=== PATIENT | female | born 1965 | race Caucasian/White ===

== ENCOUNTER → 2019-03-09 13:36 | Outpatient (BNVA) | payer MEDICARE, MEDICAID, SELFPAY | PROVIDERS: Family Provider Family Medicine; PCP Family Medicine; Visit Provider Family Medicine | DX: Z12.31 Encounter for screening mammogram for malignant neoplasm of breast (principal); N89.8 Other specified noninflammatory disorders of vagina | CPT/HCPCS: 87070 ==

== ENCOUNTER → 2019-05-19 15:59 | Outpatient (BNVA) | payer MEDICARE, MEDICAID, SELFPAY | PROVIDERS: Family Provider Family Medicine; PCP Family Medicine; Visit Provider Nurse Practitioner | DX: S99.922A Unspecified injury of left foot, initial encounter (principal); S92.355A Nondisplaced fracture of fifth metatarsal bone, left foot, initial encounter for closed fracture; X58.XXXA Exposure to other specified factors, initial encounter | CPT/HCPCS: 73630 ==

== ENCOUNTER 2019-05-24 11:41 | Outpatient (CLI) | payer MEDICARE, MEDICAID, SELFPAY ==
--- NOTE | 2019-05-24 11:30 | MM_ITS ---
WS: [id number] BILATERAL DIGITAL SCREENING MAMMOGRAPHY WITH CAD CLINICAL INFORMATION: breast cancer screening HISTORY: Screening mammogram. No current complaints. COMPARISON: January 23, 2018 TECHNIQUE: Bilateral CC and MLO views. FINDINGS: Scattered fibroglandular densities bilaterally. No suspicious focal mass, asymmetry, calcifications, or architectural distortion. No evidence of malignancy. MM/[place] [id number] IMPRESSION: BI-RADS: 2-Benign FOLLOW UP: 1 Year Follow-up Recommend return to annual screening mammography.
== END 2019-05-24 11:42 | disposition home or self-care (01) ==
LOC: RADSHAW 11:44
PROVIDERS: Family Provider Family Medicine; PCP Family Medicine; Visit Provider Family Medicine
DX: Z12.31 Encounter for screening mammogram for malignant neoplasm of breast (principal)
CPT/HCPCS: 77067

== ENCOUNTER 2019-05-24 12:33 | Outpatient (CLI) | payer MEDICARE, MEDICAID, SELFPAY ==
--- NOTE | 2019-05-24 12:42 | XR_ITS ---
WS: [id number] Left foot, 3 views, 05/24/2019 Clinical Data: fracture Comparison: Left foot, 05/19/2019 Findings: Fracture of the base of left fifth metatarsal remains the same. No other fractures are noted. The soft tissues show no changes. XR/XR foot LT min 3V* [id number] Impression: No change in fracture of base of left fifth metatarsal.
== END 2019-05-24 12:34 | disposition home or self-care (01) ==
LOC: RADWPI 12:40
PROVIDERS: Family Provider Family Medicine; PCP Family Medicine; Visit Provider Podiatrist Foot & Ankle Surgery
DX: S92.352A Displaced fracture of fifth metatarsal bone, left foot, initial encounter for closed fracture (principal); X58.XXXA Exposure to other specified factors, initial encounter
CPT/HCPCS: 73630

== ENCOUNTER → 2019-06-06 12:27 | Outpatient (BNVA) | payer MEDICARE, MEDICAID, SELFPAY | PROVIDERS: Family Provider Family Medicine; PCP Family Medicine; Visit Provider Podiatrist Foot & Ankle Surgery | DX: S92.352A Displaced fracture of fifth metatarsal bone, left foot, initial encounter for closed fracture (principal); T14.8XXA Other injury of unspecified body region, initial encounter | CPT/HCPCS: 73630 ==

== ENCOUNTER → 2019-07-03 09:54 | Outpatient (BNVA) | payer MEDICARE, MEDICAID, SELFPAY | PROVIDERS: Family Provider Family Medicine; PCP Family Medicine; Visit Provider Podiatrist Foot & Ankle Surgery | DX: S92.902A Unspecified fracture of left foot, initial encounter for closed fracture (principal); M21.42 Flat foot [pes planus] (acquired), left foot; S92.352A Displaced fracture of fifth metatarsal bone, left foot, initial encounter for closed fracture; X58.XXXA Exposure to other specified factors, initial encounter | CPT/HCPCS: 73630 ==

== ENCOUNTER 2019-07-03 12:48 | Outpatient (CLI) | payer MEDICARE, MEDICAID, SELFPAY | END 2019-07-03 12:49 | disposition home or self-care (01) | LOC: SPT 12:49 | PROVIDERS: Family Provider Family Medicine; PCP Family Medicine; Visit Provider Podiatrist Foot & Ankle Surgery | DX: Z46.89 Encounter for fitting and adjustment of other specified devices (principal); S62.308D Unspecified fracture of other metacarpal bone, subsequent encounter for fracture with routine healing; X58.XXXD Exposure to other specified factors, subsequent encounter; S92.902A Unspecified fracture of left foot, initial encounter for closed fracture; M21.42 Flat foot [pes planus] (acquired), left foot; S92.352A Displaced fracture of fifth metatarsal bone, left foot, initial encounter for closed fracture; X58.XXXA Exposure to other specified factors, initial encounter | CPT/HCPCS: 73630; L3031 ==

== ENCOUNTER → 2019-07-25 11:58 | Outpatient (BNVA) | payer MEDICARE, MEDICAID, SELFPAY | PROVIDERS: Family Provider Family Medicine; PCP Family Medicine; Visit Provider Podiatrist Foot & Ankle Surgery | DX: S92.353A Displaced fracture of fifth metatarsal bone, unspecified foot, initial encounter for closed fracture (principal); X58.XXXA Exposure to other specified factors, initial encounter | CPT/HCPCS: 73630 ==

== ENCOUNTER 2019-08-08 20:00 | Outpatient (CLI) | payer MEDICARE, MEDICAID, SELFPAY | END 2019-08-08 20:01 | disposition home or self-care (01) | LOC: SLEEP 08-09 09:17 | PROVIDERS: Family Provider Family Medicine; PCP Family Medicine; Visit Provider Anesthesiology Pain Medicine | DX: G47.33 Obstructive sleep apnea (adult) (pediatric) (principal) | CPT/HCPCS: 95811 ==

== ENCOUNTER → 2019-09-05 14:27 | Outpatient (BNVA) | payer MEDICARE, MEDICAID, SELFPAY | PROVIDERS: Family Provider Family Medicine; PCP Family Medicine; Visit Provider Family Medicine | DX: K21.9 Gastro-esophageal reflux disease without esophagitis (principal); I10 Essential (primary) hypertension; E11.9 Type 2 diabetes mellitus without complications; E03.9 Hypothyroidism, unspecified | CPT/HCPCS: 80053; 80061; 82044; 83036; 84443; 85025 ==

== ENCOUNTER → 2019-10-03 16:02 | Outpatient (BNVA) | payer MEDICARE, MEDICAID, SELFPAY | PROVIDERS: Family Provider Family Medicine; PCP Family Medicine; Visit Provider Family Medicine | DX: N89.8 Other specified noninflammatory disorders of vagina (principal) | CPT/HCPCS: 84450; 87070 ==

== ENCOUNTER 2019-10-24 08:18 | Day surgery (SDC) | payer MEDICARE, MEDICAID, SELFPAY ==
[2019-10-19 13:19] VITALS: BMI 42.9
[2019-10-24 08:24] VITALS: BP 138/84; PULSE 85; RESP 18; TEMP 36.2; O2SAT 93
[2019-10-24 08:42] LABS: Glucose Point of Care 121 mg/dL (70-110)
--- NOTE | 2019-10-24 08:50 | ANES.PREANE2 ---
Pre-Anesthetic Assessment Pre-Anesthetic Assessment: Height/Weight: Height 1.63 m Weight 113.398 kg Temp Pulse Resp BP Pulse Ox 97.2 F L 85 18 138/84 93 10/24/19 08:24 10/24/19 08:24 10/24/19 08:24 10/24/19 08:24 10/24/19 08:24 Preop Diagnosis: Acid reflux Proposed Procedure: Operation Date: 10/24/19 09:00 Proposed Procedures p EGD 41414 K21.9(Not Applicable) - Anthony Gar MD Was Beta Mook taken within 24 hours: N/A Last intake: Intake Last Liquid Date 10/23/19 Last Liquid Time 20:00 Last Solid Date 10/23/19 Last Solid Time 23:30 Last Intake: 23:00 Social: Social History: No alcohol and No tobacco Exam: Pre-Anes Outpt Exam: alert, oriented x 3, clear to auscultation bilaterally and regular rate & rhythm Airway: Submandibular: WNL Cervical ROM: WNL MP: 3 Dentition: Full Pulmonary: Pulmonary: None reported CV/HEM: CV/HEM: HTN : : None reported Hepatic: Hepatic: None reported GI: GI: GERD Metabolic: Metabolic: DM and Thyroid Comments: 120's avg Musc/skel: Musc/skel: Fibromyalgia and Lower Back Pain Neuropsych: Neuropsych: Anxiety Anesthetic Plan: ASA status: 3 Anesthesia: Anesthesia Evaluation and MAC PFSH Anesthesia PFSH: Medical History (Updated 10/03/19 @ 15:50 by Lida Santamaria DO) Carpal tunnel syndrome of left wrist Chronic GERD Controlled diabetes mellitus DDD (degenerative disc disease), cervical Depression Essential (primary) hypertension DENILSON (generalized anxiety disorder) Surgical History (Updated 10/03/19 @ 15:50 by Lida Santamaria DO) H/O section H/O craniotomy H/O total knee replacement RIGHT History of ankle surgery History of cholecystectomy History of colonoscopy (~2018) Family History Father Stroke Mother Cancer Social History Smoking and tobacco status: never smoked Alcohol intake: current Alcohol intake frequency: 0-2 Drinks per Day Data Anesthesia Other Labs: Laboratory Results - last 48 hr 10/24/19 08:38 POC Glucose 121 Cardiac Studies: No Data to Display
--- NOTE | 2019-10-24 08:54 | W.PM.OPSUD ---
Surgery/Procedure H&P Update DATE OF PROCEDURE: October 24, 2019 DATE H&P PERFORMED: 09/26/19 H&P UPDATE INFORMATION: I have reviewed H&P completed within last 30 days, I have examined patient prior to procedure and No changes to prior documentation PREOP DIAGNOSIS: Acid reflux PRIMARY INDICATION FOR PROCEDURE: The same PLANNED PROCEDURE: Operation Date: 10/24/19 09:00 Proposed Procedures p EGD 72978 K21.9(Not Applicable) - Anthony Gar MD
[2019-10-24 09:13] VITALS: BP 88/61; PULSE 84; RESP 18; TEMP 36.9; O2SAT 94
[2019-10-24 09:35] VITALS: BP 98/69; PULSE 77; RESP 18; O2SAT 96
--- NOTE | 2019-10-24 09:35 | ANE.PACU2 ---
Inpatient post-anesthesia follow up: Airway intact: Yes Vital signs: Temperature 98.4 F Pulse Rate 77 Respiratory Rate 18 Blood Pressure 98/69 Pulse Oximetry 96 Oxygen Delivery Me thod Room Air Oxygen Flow Rate 3 Fraction of Inspir ed Oxygen Hydration adequate: Yes Nausea and vomiting: No Pain level: 2 Mental status: Baseline
[2019-10-24] MEDS: sodium chloride 0.9% 1,000 ML 30 ML IV (09:49)
[2019-10-25 09:25] LABS: H. Pylori / CLO Test Negative
== END 2019-10-24 09:30 | disposition home or self-care (01) ==
PROVIDERS: PCP Family Medicine; Visit Provider Surgery
PROC: 0DJ08ZZ Inspection of Upper Intestinal Tract, Via Natural or Artificial Opening Endoscopic (ICD-10-PCS; CPT 43235; principal; 2019-10-24 09:00)
DX: K21.9 Gastro-esophageal reflux disease without esophagitis (principal); K29.70 Gastritis, unspecified, without bleeding; E66.01 Morbid (severe) obesity due to excess calories; E11.9 Type 2 diabetes mellitus without complications; Z79.84 Long term (current) use of oral hypoglycemic drugs; I10 Essential (primary) hypertension; Z68.42 Body mass index [BMI] 45.0-49.9, adult
CPT/HCPCS: 12345; 36416; 43239; 82962; 87077; J2704; J7030

== ENCOUNTER → 2020-01-06 14:09 | Outpatient (BNVA) | payer MEDICARE, MEDICAID, SELFPAY | PROVIDERS: PCP Family Medicine; Visit Provider Nurse Practitioner Family | DX: Z20.828 Contact with and (suspected) exposure to other viral communicable diseases (principal); J32.9 Chronic sinusitis, unspecified | CPT/HCPCS: 87400; 87635 ==

== ENCOUNTER 2020-01-08 17:45 | Inpatient (IN) | payer MEDICARE, MEDICAID, SELFPAY ==
[2020-01-08] VITALS (12 sets, daily range): BP systolic 82–147; BP diastolic 55–98; PULSE 70–107; RESP 12–38; TEMP 37; O2SAT 40–99; BMI 42.9
--- NOTE | 2020-01-08 18:15 | XR_ITS ---
WS: [id number] XR chest 1V portable [id number] REASON FOR EXAM: cp FINDINGS: Mild cardiomegaly. Mild tortuosity of the thoracic aorta. No other mediastinal abnormality. Ill-defined interstitial and more consolidative appearing opacities in the lower lung briggs medially . Minimal blunting of the costophrenic angles. XR/XR chest 1V portable [id number] IMPRESSION: Opacifications in the lower lung briggs likely represent a combination of atele ctasis and infiltrate of unknown chronicity. Acute or subacute pneumonitis enrike ot be excluded. Small amount of bilateral pleural fluid versus pleural scarring .
--- NOTE | 2020-01-08 18:16 | ECG_ITS ---
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 Measurements Intervals [place] Rate: 98 P: 26 IN: 147 QRS: 48 QRSD: 102 T: 38 QT: 371 QTc: 475 Interpretive Statements SINUS RHYTHM No previous ECG available for comparison Electronically Signed On 01-09-2020 19:24:07 FISH PACKER by Elza Swartz M.D. [id number]
--- NOTE | 2020-01-08 18:28 | ED_ITS ---
HPI - COVID General: Chief Complaint: COVID symptoms Stated Complaint: cp/sob/abd pain Time Seen by Provider: 01/08/20 17:58 Source: patient Mode of arrival: ambulatory Limitations: no limitations Triage information: Has fever, cough or shortness of breath . No known COVID + exposure last 14 days History of Present Illness: HPI Narrative: 54-year-old female who states she has not been feeling well over the last 2 to 3 days. States she had shortness of breath along with chest pain and some abdominal pain. Patient is quite dyspneic here and hypoxic. She denies any fever. She did have a Covid test 2 days ago that was negative. She has had some chest pain as well. Pain is sharp and rates it a 3 out of 10. COVID 19 common symptoms: positive dyspnea; negative fever(s), chills, body aches, headache(s) or throat pain COVID 19 other sytmptoms: positive chest pain COVID Results: SARS-CoV-2 RNA (RT-PCR) Not detected (NOT DETECTED) 01/06/20 14:15 03/26 Review of Systems Const: Denies: fever(s), chills, body aches or change in appetite Eyes: Denies: blurry vision or eye discomfort ENMT: Denies: throat pain or dental pain Card: Reports: chest pain Resp: Reports: dyspnea GI: Reports: abdominal pain : Denies: dysuria Musc: Denies: neck pain or back pain Skin/Breast: Denies: rash Neuro: Denies: headache(s) Psych: Denies: depression Farshad/Lymph: Denies: easy bruising All/Imm: Denies: urticaria PFSH ED PFSH: Medical History Carpal tunnel syndrome of left wrist Chronic GERD Controlled diabetes mellitus DDD (degenerative disc disease), cervical Depression Essential (primary) hypertension DENILSON (generalized anxiety disorder) Surgical History H/O section H/O craniotomy H/O total knee replacement RIGHT History of ankle surgery History of cholecystectomy History of colonoscopy (~2018) Family History Father Stroke Mother Cancer Social History (Updated 01/08/20 @ 18:18 by Baldemar Jimenez RN) Smoking and tobacco status: never smoked Alcohol intake: never Substance/Drug Use: never Physical Exam Const: COMMON NORMALS: patient oriented x3 and healthy appearing GENERAL APPEARANCE: in distress and ill appearing HENMT: COMMON NORMALS: normocephalic and atraumatic HEAD & SCALP: normocephalic and atraumatic Eye: COMMON NORMALS: Equal, round and reactive pupils present and EOMs intact bilaterally PUPIL: Yes Equal, round and reactive pupils present Neck/C-Spine: COMMON NORMALS: full ROM and supple Chest: COMMONS NORMALS: normal inspection of the chest and normal palpation of entire chest wall Resp: COMMON NORMALS: No retractions, No use of accessory muscles and clear to auscultation bilaterally EFFORT & INSPECTION: Yes respiratory distress AUSCULTATION: clear to auscultation bilaterally Cardio: COMMON NORMALS: regular rate, regular rhythm and No murmurs present (Cardio) RATE: regular rate RHYTHM: regular rhythm GI: COMMON NORMALS: Normal to inspection, nondistended, normoactive bowel sounds present, Soft to palpation, non-tender and no masses PALPATION: Yes Soft to palpation Extremity: COMMON NORMALS: normal to inspection and full ROM Neuro: COMMON NORMALS: patient oriented x3, moves all extremities and no focal motor deficits Psych: COMMON NORMALS: mental status grossly normal, Normal thought process present and cooperative THOUGHT PROCESS: Normal thought process present Skin: COMMON NORMALS: no rashes or lesions noted and no wounds GENERAL SKIN EXAM: no rashes or lesions noted Course Reevaluation(s): Reevaluation #1: Patient had increasing unresponsiveness here. Even on BiPAP. Is concerned she may have taken too many of her pain medicines. Patient given 0.4 Narcan she immediately woke up was answering all my questions was able to take her off BiPAP and placed on a nasal cannula at this time. We will recheck her ABG at 10 minutes. Time: 20:45 Vital Signs: Vital signs: Vital Signs Temperature 98.6 F 01/08/20 18:11 Pulse Rate 85 01/08/20 21:30 Respiratory Rate 19 H 01/08/20 21:30 Blood Pressure 102/86 01/08/20 21:30 Pulse Oximetry 96 01/08/20 21:30 MDM - COVID MDM Narrative Medical decision making narrative: Patient presents here with likely accidental overdose on her fentanyl. Patient here awoken breathing improved greatly after Narcan. Spoke to hospitalist and will admit for observation. Patient's ABG is improving after the Narcan. CT of her chest shows no acute findings. I do not believe she needs a Narcan drip at this time. Lab Data Result diagrams: 01/08/20 18:24 01/08/20 18:24 Labs: Lab Results 01/08/20 01/08/20 01/08/20 Range/Units 18:24 18:24 18:24 WBC 15.4 H (4.0-10.0) 10^3/uL RBC 4.86 (4.1-5.3) 10^6/uL Hgb 13.3 (11.5-15.3) g/dL Hct 44.5 (37.0-47.0) % MCV 91.6 (81-99) fL MCH 27.4 L (28.0-34.0) pg MCHC 29.9 L (30.0-36.0) g/dL RDW 14.6 (12.1-15.1) % Plt Count 433 H (130-400) 10^3/cmm MPV 9.2 (7.4-10.4) fL Neut % (Auto) 79.5 % Lymph % (Auto) 11.9 % [place] % (Auto) 5.6 % Eos % (Auto) 0.4 % Baso % (Auto) 0.3 % Neut # (Auto) 12.19 H (1.8-7.7) 10^3/uL Lymph # (Auto) 1.8 (0.8-4.8) 10^3/uL [place] # (Auto) 0.9 (0.2-0.9) 10^3/uL Eos # (Auto) 0.1 (0.0-0.8) 10^3/uL Baso # (Auto) 0.1 (0.0-0.1) 10^3/uL Nucleated RBC % (auto) 0 % Nucleated RBCs # 0.0 /100WBC PT 13.00 (12.1-14.9) SECONDS INR 0.96 (0.8-1.2) D-Dimer 0.41 (0-0.59) ug/mIFEU Specimen Type Sample Site ABG pH (7.35-7.45) ABG pCO2 (35-45) mmHg ABG pO2 (80.0-100.0) mmHg ABG HCO3 (22-26) mmol/L ABG Base Excess (-2.0-2.0) mmol/L Bernardino Test Hematocrit (37-47) % O2 Delivery Device O2 Liters/Min % FiO2 % Repeat Photocomposing Machine Operator ID Sodium 132 L (136-145) mmol/L Potassium 4.3 (3.5-5.1) mmol/L Chloride 89 L (98-107) mmol/L Carbon Dioxide 31 H (22-29) mmol/L Anion Gap 16.3 (5-19) BUN 12 (6-20) mg/dL Creatinine 0.7 (0.5-0.9) mg/dL GFR Calculation 86.6 L (90-130) mL/min Glucose 210 H (65-115) mg/dL Calculated Osmolality 280 L (285-295) mOsm/kg Lactic Acid (0.5-2.2) mmol/L Calcium 9.0 (8.5-10.5) mg/dL Total Bilirubin 0.2 (0.15-1.2) mg/dL AST 45 H (0-32) U/L ALT 49 H (0-33) U/L Alkaline Phosphatase 127 H (35-105) IU/L Troponin T Baseline (0-10) ng/L Total Protein 7.6 (6.6-8.7) g/dL Albumin 4.3 (3.5-5.2) g/dL Globulin 3.3 (1.3-4.6) g/dL Lipase 12 L (13-60) U/L 01/08/20 01/08/20 01/08/20 Range/Units 18:24 18:24 18:45 WBC (4.0-10.0) 10^3/uL RBC (4.1-5.3) 10^6/uL Hgb (11.5-15.3) g/dL Hct (37.0-47.0) % MCV (81-99) fL MCH (28.0-34.0) pg MCHC (30.0-36.0) g/dL RDW (12.1-15.1) % Plt Count (130-400) 10^3/cmm MPV (7.4-10.4) fL Neut % (Auto) % Lymph % (Auto) % [place] % (Auto) % Eos % (Auto) % Baso % (Auto) % Neut # (Auto) (1.8-7.7) 10^3/uL Lymph # (Auto) (0.8-4.8) 10^3/uL [place] # (Auto) (0.2-0.9) 10^3/uL Eos # (Auto) (0.0-0.8) 10^3/uL Baso # (Auto) (0.0-0.1) 10^3/uL Nucleated RBC % (auto) % Nucleated RBCs # /100WBC PT (12.1-14.9) SECONDS INR (0.8-1.2) D-Dimer (0-0.59) ug/mIFEU Specimen Type Arterial Sample Site Radial, right ABG pH 7.21 L (7.35-7.45) ABG pCO2 88.9 H* (35-45) mmHg ABG pO2 85.0 (80.0-100.0) mmHg ABG HCO3 35.7 H (22-26) mmol/L ABG Base Excess 4.6 H (-2.0-2.0) mmol/L Bernardino Test Pos Hematocrit 42.7 (37-47) % O2 Delivery Device Nrb O2 Liters/Min 15.0 % FiO2 100.0 % Repeat Photocomposing Machine Operator ID Bd Sodium (136-145) mmol/L Potassium (3.5-5.1) mmol/L Chloride (98-107) mmol/L Carbon Dioxide (22-29) mmol/L Anion Gap (5-19) BUN (6-20) mg/dL Creatinine (0.5-0.9) mg/dL GFR Calculation (90-130) mL/min Glucose (65-115) mg/dL Calculated Osmolality (285-295) mOsm/kg Lactic Acid 1.9 (0.5-2.2) mmol/L Calcium (8.5-10.5) mg/dL Total Bilirubin (0.15-1.2) mg/dL AST (0-32) U/L ALT (0-33) U/L Alkaline Phosphatase (35-105) IU/L Troponin T Baseline 15 H (0-10) ng/L Total Protein (6.6-8.7) g/dL Albumin (3.5-5.2) g/dL Globulin (1.3-4.6) g/dL Lipase (13-60) U/L 01/08/20 Range/Units 20:49 WBC (4.0-10.0) 10^3/uL RBC (4.1-5.3) 10^6/uL Hgb (11.5-15.3) g/dL Hct (37.0-47.0) % MCV (81-99) fL MCH (28.0-34.0) pg MCHC (30.0-36.0) g/dL RDW (12.1-15.1) % Plt Count (130-400) 10^3/cmm MPV (7.4-10.4) fL Neut % (Auto) % Lymph % (Auto) % [place] % (Auto) % Eos % (Auto) % Baso % (Auto) % Neut # (Auto) (1.8-7.7) 10^3/uL Lymph # (Auto) (0.8-4.8) 10^3/uL [place] # (Auto) (0.2-0.9) 10^3/uL Eos # (Auto) (0.0-0.8) 10^3/uL Baso # (Auto) (0.0-0.1) 10^3/uL Nucleated RBC % (auto) % Nucleated RBCs # /100WBC PT (12.1-14.9) SECONDS INR (0.8-1.2) D-Dimer (0-0.59) ug/mIFEU Specimen Type Arterial Sample Site Brachial, right ABG pH 7.36 (7.35-7.45) ABG pCO2 55.4 H (35-45) mmHg ABG pO2 79.3 L (80.0-100.0) mmHg ABG HCO3 31.2 H (22-26) mmol/L ABG Base Excess 4.4 H (-2.0-2.0) mmol/L Bernardino Test N/a Hematocrit 41.4 (37-47) % O2 Delivery Device Nc O2 Liters/Min 5.0 % FiO2 % Repeat Photocomposing Machine Operator ID Harkr Sodium (136-145) mmol/L Potassium (3.5-5.1) mmol/L Chloride (98-107) mmol/L Carbon Dioxide (22-29) mmol/L Anion Gap (5-19) BUN (6-20) mg/dL Creatinine (0.5-0.9) mg/dL GFR Calculation (90-130) mL/min Glucose (65-115) mg/dL Calculated Osmolality (285-295) mOsm/kg Lactic Acid (0.5-2.2) mmol/L Calcium (8.5-10.5) mg/dL Total Bilirubin (0.15-1.2) mg/dL AST (0-32) U/L ALT (0-33) U/L Alkaline Phosphatase (35-105) IU/L Troponin T Baseline (0-10) ng/L Total Protein (6.6-8.7) g/dL Albumin (3.5-5.2) g/dL Globulin (1.3-4.6) g/dL Lipase (13-60) U/L COVID Results: SARS-CoV-2 RNA (RT-PCR) Not detected (NOT DETECTED) 01/06/20 14:15 01/06/[address] Chest: Radiologist's impression: [address] [address] [address] Scan Report Signed Patient: Shannan Hummel Unit #: [id number] : 1965 Age/Sex: 54 / F ADM Date: 01/08/20 Loc: ER Room/Bed: Attending Dr: Ordering Provider/Ordering MD: Kapil Sarmiento MD Date of Service: 01/08/20 Procedure(s): CT angio chest w abd pel w con Accession Number(s): [id number] Report Number: [id number] PROCEDURE INFORMATION: Exam: CT Angiography Chest With Contrast Exam date and time: 01/08/2020 7:23 PM Age: 54 years old Clinical indication: Nausea and vomiting; Abdominal pain; Shortness of breath; Chest pain; Prior surgery; Surgery type: , gb; Additional info: Cp TECHNIQUE: Imaging protocol: Computed tomographic angiography of the chest with intravenous contrast. 3D rendering (Not supervised by radiologist): MIP and/or 3D reconstructed images were created by the technologist. Radiation optimization: All CT scans at this facility use at least one of these dose optimization techniques: automated exposure control; mA and/or kV adjustment per patient size (includes targeted exams where dose is matched to clinical indication); or iterative reconstruction. Contrast material: OMNI 350; Contrast volume: 95 ml; Contrast route: INTRAVENOUS (IV); COMPARISON: CR XR chest 1V portable [id number] 01/08/2020 6:31 PM RADIATION DOSE METRICS: Total DLP (mGy-cm): 3621.56 FINDINGS: Pulmonary arteries: Suboptimal bolus contrast timing in the pulmonary arteries. No filling defect identified within the central or lobar branches. The segmental and smaller artery branches are suboptimally opacified with contrast to exclude embolus. Aorta: Unremarkable. No aortic aneurysm. No aortic dissection. Lungs: Dependent atelectasis in the bilateral lower lobes, right middle lobe, and right upper lobe. Pleural space: Unremarkable. No pneumothorax. No pleural effusion. Heart: Unremarkable. No cardiomegaly. No pericardial effusion. Lymph nodes: Subcentimeter mediastinal and hilar lymph nodes are most likely reactive. Bones/joints: Unremarkable. No acute fracture. Soft tissues: Unremarkable. IMPRESSION: 1. No pulmonary emboli visualized. The segmental and smaller artery branches are suboptimally opacified with contrast to definitely exclude embolus. 2. Mild atelectasis. PROCEDURE INFORMATION: Exam: CT Abdomen And Pelvis With Contrast Exam date and time: 01/08/2020 7:23 PM Age: 54 years old Clinical indication: Nausea and vomiting; Abdominal pain; Shortness of breath; Chest pain; Prior surgery; Surgery type: , gb; Additional info: Cp TECHNIQUE: Imaging protocol: Computed tomography of the abdomen and pelvis with intravenous contrast. Radiation optimization: All CT scans at this facility use at least one of these dose optimization techniques: automated exposure control; mA and/or kV adjustment per patient size (includes targeted exams where dose is matched to clinical indication); or iterative reconstruction. Contrast material: OMNI 350; Contrast volume: 95 ml; Contrast route: INTRAVENOUS (IV); COMPARISON: CR XR chest 1V portable [id number] 01/08/2020 6:31 PM RADIATION DOSE METRICS: Total DLP (mGy-cm): 3621.56 FINDINGS: Mediastinal space: Small hiatal hernia. Liver: Normal. No mass. Gallbladder and bile ducts: Cholecystectomy. Mild prominence of the intrahepatic and extrahepatic bile ducts is most likely chronic reservoir effect. Pancreas: Normal. No ductal dilation. Spleen: Normal. No splenomegaly. Adrenal glands: Normal. No mass. Kidneys and ureters: Normal. No hydronephrosis. Stomach and bowel: Mobile cecum which is located within the central abdomen. The appendix is visible and is normal. Moderate stool in the transverse colon with mild scattered stool and gas throughout the remainder. The small bowel is unremarkable. Appendix: See Stomach and bowel finding. Intraperitoneal space: Unremarkable. No free air. No significant fluid collection. Vasculature: Unremarkable. No abdominal aortic aneurysm. Lymph nodes: Unremarkable. No enlarged lymph nodes. Urinary bladder: Unremarkable as visualized. Reproductive: Unremarkable as visualized. Bones/joints: Unremarkable. No acute fracture. Soft tissues: Mild subcutaneous fat edema in the posterior lumbar region. CT/CT angio chest w abd pel w con IMPRESSION: 1. No acute abnormality identified in the abdomen or pelvis. EKG Data EKG 1: Attestation: I personally reviewed and interpreted this EKG as follows: EKG interpretation date: 01/08/20 EKG interpretation time: 18:16 Interpretation: nsr hr [address] or t wave abnormalities qrs 102 qtc 426 Discharge Plan Discharge Prescriptions: No Action pseudoephedrine HCl 60 mg tablet 30 mg PO Q4H RF: 0 gabapentin 400 mg capsule 400 mg PO TID RF: 0 fentanyl 75 mcg/hr patch 72 hour 1 patch TRANSDERMA Q72H RF: 0 oxycodone 10 mg tablet 10 mg PO Q6H PRN (Reason: Pain) RF: 0 ondansetron 4 mg tablet,disintegrating 4 mg PO Q6H Qty: 90 RF: 0 clonazepam 0.5 mg tablet 0.5 mg PO DAILY Qty: 40 RF: 4 metformin 500 mg tablet 500 mg PO BID Qty: 180 RF: 1 omeprazole 20 mg capsule,delayed release(DR/EC) 20 mg PO DAILY Qty: 90 RF: 0 paroxetine HCl [Paxil] 40 mg tablet 40 mg PO DAILY Qty: 90 RF: 0 hydrochlorothiazide 25 mg tablet 25 mg PO DAILY Qty: 90 RF: 1 albuterol sulfate [Ventolin HFA] 90 mcg/actuation HFA aerosol inhaler 2 puff INHALATION Q6H PRN (Reason: shortness of breath or wheezing) Qty: 8.5 RF: 0 azithromycin 250 mg tablet See Rx Instructions PO .COMPLEX Qty: 6 RF: 0 pantoprazole 40 mg tablet,delayed release (DR/EC) 40 mg PO DAILY Qty: 90 RF: 0 pravastatin 40 mg tablet 40 mg PO ONCE Qty: 90 RF: 0 ropinirole 1 mg tablet 1 mg PO TID Qty: 270 RF: 0 memantine 10 mg tablet 10 mg PO BID Qty: 180 RF: 1 levothyroxine 75 mcg capsule 75 mcg PO DAILY Qty: 90 RF: 0 Rexulti 0.5 mg tablet 0.5 mg PO DAILY Qty: 90 RF: 0 lamotrigine 200 mg tablet 200 mg PO DAILY Qty: 90 RF: 0 Diflucan 150 mg tablet 150 mg PO DAILY RF: 0 amlodipine 5 mg tablet 5 mg PO DAILY RF: 0 trazodone 100 mg tablet 100 mg PO DAILY RF: 0 losartan 100 mg tablet 100 mg PO DAILY RF: 0 cyclobenzaprine 10 mg tablet 10 mg PO TID RF: 0 oxycodone-acetaminophen 10-325 mg tablet 1 tab PO QID PRN (Reason: Pain) RF: 0 Coding Level of Care Code ED Medical Orderly for Chg Fwd Exam Comprehensive
--- NOTE | 2020-01-08 18:40 | PC.NURSE ---
O2 APPLIED AT 15L/NRB, O2 SATS INCREASED TO 93%
--- NOTE | 2020-01-08 18:48 | CTR_ITS ---
PROCEDURE INFORMATION: Exam: CT Angiography Chest With Contrast Exam date and time: 01/08/2020 7:23 PM Age: 54 years old Clinical indication: Nausea and vomiting; Abdominal pain; Shortness of breath; Chest pain; Prior surgery; Surgery type: , gb; Additional info: Cp TECHNIQUE: Imaging protocol: Computed tomographic angiography of the chest with intravenous contrast. 3D rendering (Not supervised by radiologist): MIP and/or 3D reconstructed images were created by the technologist. Radiation optimization: All CT scans at this facility use at least one of these dose optimization techniques: automated exposure control; mA and/or kV adjustment per patient size (includes targeted exams where dose is matched to clinical indication); or iterative reconstruction. Contrast material: OMNI 350; Contrast volume: 95 ml; Contrast route: INTRAVENOUS (IV); COMPARISON: CR XR chest 1V portable [id number] 01/08/2020 6:31 PM RADIATION DOSE METRICS: Total DLP (mGy-cm): 3621.56 FINDINGS: Pulmonary arteries: Suboptimal bolus contrast timing in the pulmonary arteries. No filling defect identified within the central or lobar branches. The segmental and smaller artery branches are suboptimally opacified with contrast to exclude embolus. Aorta: Unremarkable. No aortic aneurysm. No aortic dissection. Lungs: Dependent atelectasis in the bilateral lower lobes, right middle lobe, and right upper lobe. Pleural space: Unremarkable. No pneumothorax. No pleural effusion. Heart: Unremarkable. No cardiomegaly. No pericardial effusion. Lymph nodes: Subcentimeter mediastinal and hilar lymph nodes are most likely reactive. Bones/joints: Unremarkable. No acute fracture. Soft tissues: Unremarkable. IMPRESSION: 1. No pulmonary emboli visualized. The segmental and smaller artery branches are suboptimally opacified with contrast to definitely exclude embolus. 2. Mild atelectasis. PROCEDURE INFORMATION: Exam: CT Abdomen And Pelvis With Contrast Exam date and time: 01/08/2020 7:23 PM Age: 54 years old Clinical indication: Nausea and vomiting; Abdominal pain; Shortness of breath; Chest pain; Prior surgery; Surgery type: , gb; Additional info: Cp TECHNIQUE: Imaging protocol: Computed tomography of the abdomen and pelvis with intravenous contrast. Radiation optimization: All CT scans at this facility use at least one of these dose optimization techniques: automated exposure control; mA and/or kV adjustment per patient size (includes targeted exams where dose is matched to clinical indication); or iterative reconstruction. Contrast material: OMNI 350; Contrast volume: 95 ml; Contrast route: INTRAVENOUS (IV); COMPARISON: CR XR chest 1V portable [id number] 01/08/2020 6:31 PM RADIATION DOSE METRICS: Total DLP (mGy-cm): 3621.56 FINDINGS: Mediastinal space: Small hiatal hernia. Liver: Normal. No mass. Gallbladder and bile ducts: Cholecystectomy. Mild prominence of the intrahepatic and extrahepatic bile ducts is most likely chronic reservoir effect. Pancreas: Normal. No ductal dilation. Spleen: Normal. No splenomegaly. Adrenal glands: Normal. No mass. Kidneys and ureters: Normal. No hydronephrosis. Stomach and bowel: Mobile cecum which is located within the central abdomen. The appendix is visible and is normal. Moderate stool in the transverse colon with mild scattered stool and gas throughout the remainder. The small bowel is unremarkable. Appendix: See Stomach and bowel finding. Intraperitoneal space: Unremarkable. No free air. No significant fluid collection. Vasculature: Unremarkable. No abdominal aortic aneurysm. Lymph nodes: Unremarkable. No enlarged lymph nodes. Urinary bladder: Unremarkable as visualized. Reproductive: Unremarkable as visualized. Bones/joints: Unremarkable. No acute fracture. Soft tissues: Mild subcutaneous fat edema in the posterior lumbar region. CT/CT angio chest w abd pel w con IMPRESSION: 1. No acute abnormality identified in the abdomen or pelvis. Radiation Dose CTDIVOL = (mGy): DLP = 3621.56~3621.56 (mGy-cm)
[2020-01-08 18:53] LABS: Basophils # 0.1 10^3/uL (0.0-0.1); Basophils % 0.3 %; Eosinophils # 0.1 10^3/uL (0.0-0.8); Eosinophils % 0.4 %; Hematocrit 44.5 % (37.0-47.0); Hemoglobin 13.3 g/dL (11.5-15.3); Lymphocytes # 1.8 10^3/uL (0.8-4.8); Lymphocytes % 11.9 %; Mean Corpuscular HGB Conc 29.9 g/dL (30.0-36.0); Mean Corpuscular Hemoglobin 27.4 pg (28.0-34.0); Mean Corpuscular Volume 91.6 fL (81-99); Mean Platelet Volume 9.2 fL (7.4-10.4); Monocytes # 0.9 10^3/uL (0.2-0.9); Monocytes % 5.6 %; Neutrophils # 12.19 10^3/uL (1.8-7.7); Neutrophils % 79.5 %; Nucleated Red Blood Cells % 0 %; Platelet Count 433 10^3/cmm (130-400); Red Blood Count 4.86 10^6/uL (4.1-5.3); Red Cell Distribution Width 14.6 % (12.1-15.1); White Blood Count 15.4 10^3/uL (4.0-10.0)
[2020-01-08 18:55] LABS: INR 0.96 (0.8-1.2)
[2020-01-08 18:58] LABS: D Dimer 0.41 ug/mIFEU (0-0.59)
[2020-01-08 18:58] LABS: ABG PCO2 88.9 mmHg (35-45); ABG PH Result 7.21 (7.35-7.45); Arterial Blood Gas Hematocrit 42.7 % (37-47); Base Excess ABG 4.6 mmol/L (-2.0-2.0); Blood Gas Allen Test Pos; Blood Gas Operator Identificat BD; Blood Gas Sample Site Radial, right; Blood Gas Sample Type Arterial; HCO3 ABG 35.7 mmol/L (22-26); Oxygen Device NRB
[2020-01-08 18:59] LABS: Alanine Aminotransferase 49 U/L (0-33); Albumin Level 4.3 g/dL (3.5-5.2); Alkaline Phosphatase 127 IU/L (35-105); Aspartate Amino Transferase 45 U/L (0-32); Blood Urea Nitrogen 12 mg/dL (6-20); Carbon Dioxide 31 mmol/L (22-29); Chloride 89 mmol/L (98-107); Globulin 3.3 g/dL (1.3-4.6); Glomerular Filtration Rate 86.6 mL/min (90-130); Glucose 210 mg/dL (65-115); Lipase 12 U/L (13-60); Osmolality Calculated 280 mOsm/kg (285-295); Sodium 132 mmol/L (136-145); Total Bilirubin 0.2 mg/dL (0.15-1.2); Total Protein 7.6 g/dL (6.6-8.7)
[2020-01-08 19:02] LABS: Anion Gap 16.3 (5-19)
[2020-01-08 19:03] LABS: Potassium 4.3 mmol/L (3.5-5.1); Troponin(5th) Baseline 15 ng/L (0-10)
[2020-01-08] MEDS: sodium chloride 0.9% 1,000 ML 999 ML IV ×2 (19:15→21:42)
[2020-01-08] MEDS: iohexol 350 mg/mL 100 mL Btl IV (19:44)
[2020-01-08 19:51] LABS: Lactic Sepsis W/Reflex 1.9 mmol/L (0.5-2.2)
--- NOTE | 2020-01-08 20:16 | ECG_ITS ---
[facility] Test Date: 2020-01-08 Pat Name: Shannan Hummel Department: Room: Gender: Female Messaging Architect: : 1965 Requested By: Kapil Sarmiento Order Number: [id number] Ulises MD: Xavier Hutton M.D. Measurements Intervals [place] Rate: 96 P: 150 [place]: 161 QRS: 49 QRSD: 89 T: 72 QT: 384 QTc: 486 Interpretive Statements SINUS RHYTHM ST DEPRESSION, CONSIDER SUBENDOCARDIAL INJURY [0.1+ mV ST DEPRESSION] No previous ECG available for comparison Electronically Signed On 01-08-2020 20:24:54 POLITICAL ORGANIZER by Xavier Hutton M.D. [email or web address].[employer]/store/[id number]
[2020-01-08] MEDS: naloxone 0.4 mg/ml SDV IVP ×2 (20:38→22:02)
[2020-01-08 21:00] LABS: ABG PCO2 55.4 mmHg (35-45); ABG PH Result 7.36 (7.35-7.45); Arterial Blood Gas Hematocrit 41.4 % (37-47); Base Excess ABG 4.4 mmol/L (-2.0-2.0); Blood Gas Sample Type Arterial; HCO3 ABG 31.2 mmol/L (22-26); PO2 ABG 79.3 mmHg (80.0-100.0)
[2020-01-08 21:01] LABS: Blood Gas Operator Identificat HARKR; Blood Gas Sample Site Brachial, right; Oxygen Device NC
--- NOTE | 2020-01-08 21:17 | PC.NURSE ---
fentanyl patch removed from L breast
[2020-01-08] MEDS: naloxone 2 MG in sodium chloride 0.9% (100 ml) 100 ML 20.4 MG IV (22:28)
--- NOTE | 2020-01-08 22:55 | PC.NURSE ---
report recd from DELORES Estrada
--- NOTE | 2020-01-08 23:19 | PM.HP ---
Providers/Chief Complaint Primary Care Provider: Lida Santamaria DO Chief Complaint: n/v in pain History of Present Illness Shannan Hummel is a 54 year old female with PMH of HTN,DM, AMBER,GERD,chronic pain syndrome, came in after accidental fentanyl overdose upon arrival in the ER she received 2 doses of narcan to which she responded transiently and ultimately ended up being placed on narcan drip. CTA chest was done : P.E was ruled out. ABG was also done in ER: Ph: 7.21 ,pco2: 88 po2: 85, She was intilally kept on Bipap which she failed to tolerate,Repeat ABG done later Ph:7.36, Pco2:55 Po2: 79 . EKG:SINUS RHYTHM Review of Systems General: Reports: 10 or more systems reviewed and unremarkable except in HPI and below Const: Denies: fever(s), chills, body aches, change in appetite or diaphoresis Card: Denies: palpitations, edema, swelling of feet/ankles, dyspnea on exertion, orthopnea or leg pain with exertion Resp: Denies: dyspnea, productive cough, wheezing or pain on inspiration GI: Denies: abdominal pain, nausea, vomiting, diarrhea or constipation : Denies: flank pain Musc: Denies: back pain, extremity pain or extremity swelling Neuro: Denies: headache(s), difficulty walking or confusion Medications/Allergies Home Medications Medication Instructions Recorded Confirmed Last Taken Type fentanyl 75 mcg/hr transdermal 1 patch TRANSDERMA Q72H 03/09/19 01/08/20 10/21/19 History patch gabapentin 400 mg capsule 400 mg PO TID 03/09/19 01/08/20 2 Days Ago History ~10/22/19 oxycodone 10 mg tablet 10 mg PO Q6H PRN 03/09/19 01/08/20 2 Days Ago History ~10/22/19 pseudoephedrine HCl 60 mg tablet 30 mg PO Q4H tab 03/09/19 01/08/20 Unknown History ondansetron 4 mg disintegrating 4 mg PO Q6H #90 tab 05/07/19 01/08/20 Unknown Rx tablet pantoprazole 40 mg tablet,delayed 40 mg PO DAILY #90 tab 07/10/19 01/08/20 1 Day Ago Rx release ~10/23/19 pravastatin 40 mg tablet 40 mg PO ONCE #90 tab 07/10/19 01/08/20 10/21/19 Rx ropinirole 1 mg tablet 1 mg PO TID #270 tab 07/10/19 01/08/20 10/21/19 Rx memantine 10 mg tablet 10 mg PO BID #180 tab 08/16/19 01/08/20 10/21/19 Rx metformin 500 mg tablet 500 mg PO BID #180 tab 09/05/19 01/08/20 10/21/19 Rx omeprazole 20 mg capsule,delayed 20 mg PO DAILY #90 cap 09/05/19 01/08/20 1 Day Ago Rx release ~10/23/19 paroxetine HCl 40 mg tablet 40 mg PO DAILY #90 tab 09/05/19 01/08/20 10/21/19 Rx clonazepam 0.5 mg tablet 0.5 mg PO DAILY #40 tab 10/03/19 01/08/20 3 Days Ago Rx ~10/21/19 hydrochlorothiazide 25 mg tablet 25 mg PO DAILY #90 tab 10/03/19 01/08/20 10/21/19 Rx levothyroxine 75 mcg capsule 75 mcg PO DAILY #90 cap 12/11/19 01/08/20 Unknown Rx brexpiprazole 0.5 mg tablet 0.5 mg PO DAILY #90 tab 12/18/19 01/08/20 Unknown Rx lamotrigine 200 mg tablet 200 mg PO DAILY #90 tab 12/26/19 01/08/20 Unknown Rx albuterol sulfate 90 mcg/actuation 2 puff INHALATION Q6H PRN #8.5 gm 01/06/20 01/08/20 Unknown Rx aerosol inhaler azithromycin 250 mg tablet See Rx Instructions PO .COMPLEX #6 01/06/20 01/08/20 Unknown Rx tab Diflucan 150 mg PO DAILY 01/08/20 01/08/20 Unknown History amlodipine 5 mg PO DAILY 01/08/20 01/08/20 Unknown History cyclobenzaprine 10 mg PO TID 01/08/20 01/08/20 Unknown History losartan 100 mg PO DAILY 01/08/20 01/08/20 Unknown History oxycodone-acetaminophen 1 tab PO QID PRN 01/08/20 01/08/20 Unknown History trazodone 100 mg PO DAILY 01/08/20 01/08/20 Unknown History Allergies Allergy/AdvReac Type Severity Reaction Status Date / Time No Known Allergies Allergy Verified 01/06/20 13:36 PFSH Acute PFSH: Medical History Carpal tunnel syndrome of left wrist Chronic GERD Controlled diabetes mellitus DDD (degenerative disc disease), cervical Depression Essential (primary) hypertension DENILSON (generalized anxiety disorder) Surgical History H/O section H/O craniotomy H/O total knee replacement RIGHT History of ankle surgery History of cholecystectomy History of colonoscopy (~2018) Family History Father Stroke Mother Cancer Social History Smoking and tobacco status: never smoked Alcohol intake: never Substance/Drug Use: never Vitals/I&O/Wt Last Vital Signs Temp 98.6 F 01/08/20 18:11 Pulse 97 01/08/20 22:45 Resp 19 H 01/08/20 22:45 BP 102/86 01/08/20 21:30 Pulse Ox 88 L 01/08/20 22:45 01/08/20 01/08/20 01/09/20 14:59 22:59 06:59 Intake Total 1000 / 1000 Balance 1000 / 1000 Weight last 48 hrs Weight 113.398 kg Physical Exam Const: COMMON NORMALS: patient oriented x3 HENMT: COMMON NORMALS: normocephalic, atraumatic, hearing grossly normal bilaterally and external ears normal HEAD & SCALP: normocephalic and atraumatic EXTERNAL EAR: Yes external ears normal Eye: COMMON NORMALS: no scleral icterus GENERAL EYE: appearance normal, both eyes and all related structures Chest: COMMONS NORMALS: normal inspection of the chest and normal palpation of entire chest wall CHEST: Yes Symmetrical chest wall rise Resp: COMMON NORMALS: normal respiratory effort, No retractions, No use of accessory muscles and clear to auscultation bilaterally EFFORT & INSPECTION: Yes symmetric chest movement AUSCULTATION: clear to auscultation bilaterally Cardio: COMMON NORMALS: regular rate, regular rhythm, S1 normal heart sound present, S2 normal heart sound present, No gallops present (Cardio), No murmurs present (Cardio), No rub (Cardio) and Peripheral pulses 2+ throughout RATE: regular rate RHYTHM: regular rhythm HEART SOUNDS: S1 normal heart sound present and S2 normal heart sound present PERIPHERAL PULSES: Peripheral pulses 2+ throughout GI: COMMON NORMALS: Normal to inspection, nondistended, normoactive bowel sounds present, Soft to palpation, non-tender, No hepatosplenomegaly present and no masses AUSCULTATION: Yes normoactive bowel sounds PALPATION: Yes Soft to palpation and Yes No hepatosplenomegaly present RECTAL EXAM: deferred Back/Pelvis: COMMON NORMALS: no CVA tenderness Extremity: COMMON NORMALS: no clubbing, cyanosis or edema and no pedal edema Neuro: COMMON NORMALS: patient oriented x3 Data : 01/08/20 18:24 01/08/20 18:24 Micro: Microbiology 01/08/20 19:21 Blood Culture - Preliminary Blood SPECIMEN COLLECTED 01/08/20 19:21 Blood Culture - Preliminary Blood SPECIMEN COLLECTED A&P Assessment and plan (1) Hypercapnic respiratory failure: Ac on chronic hypercapnic hypoxic R/F 2/2 hypoventilation 2/2 accidental drug overdose. Initially on BIPAP, Failed to tolerate. Has received narcan and currently on Narcan drip. Will Continue to monitor respiratory status. Status: Acute (2) Leukocytosis: Lactic acid :Normal Xray chest : Clean C.T Chest :No Infiltrate Blood culture : Pending Urine Culture and Urine analysis :Pending Will start empirically on ceft 1 gm q24 h daily Status: Acute (3) Hypothyroidism: Levothyroxine 75mcg oral daily TSH in am Status: Acute (4) Controlled diabetes mellitus: LDSSI Status: Chronic (5) Essential (primary) hypertension: Continue Home med Status: Chronic (6) Chronic GERD: Continue Home med Status: Chronic Additional A&P Information # Accidental Fentanyl overdose : Accidentally use excess fentanyl patch for Chronic Pain Syndrome. Currently on Narcan Drip. DVT PPX: On lovenox 40 mg sc daily Code Status : Full Code Attestations Medical Necessity Statement*: Patient needs to be in hospital for above mentioned conditions.Expected hospital stay greater then 2 midnights. Coding Level of Care Code Acute Wholesale Agronomist for [facility] Fwd Diagnoses Hypercapnic respiratory failure J96.92 Leukocytosis D72.829 Hypothyroidism E03.9 Controlled diabetes mellitus E11.9 Essential (primary) hypertension I10 Chronic GERD K21.9
[2020-01-09] VITALS (57 sets, daily range): BP systolic 110–155; BP diastolic 57–103; PULSE 74–100; RESP 12–26; TEMP 37.3; O2SAT 82–97
--- NOTE | 2020-01-09 00:16 | ECG_ITS ---
[facility] Test Date: 2020-01-09 Pat Name: Shannan Hummel Department: Room: [facility] Gender: Female Hematology Nurse Educator: : 1965 Requested By: Kapil Sarmiento Order Number: [id number] Ulises MD: Elza Swartz M.D. Measurements Intervals [place] Rate: 84 P: 15 [place]: 155 QRS: 34 QRSD: 86 T: 13 QT: 369 QTc: 438 Interpretive Statements SINUS RHYTHM Compared to ECG 01/08/2020 19:59:00 ST (T wave) deviation no longer present Electronically Signed On 01-09-2020 19:38:07 CLOTHING CUTTER by Elza Swartz M.D. [id number]
--- NOTE | 2020-01-09 01:16 | PC.NURSE ---
pt not following commands, removing monitoring equipment including IV. vo obtained from Dr Aaron morales to place narcan drip on PRN use if pt's breathing rate drops below 8. Receiving RN notified of verbal
[2020-01-09 01:17] LABS: Troponin 5 6HR 16.55 ng/L (0-10); Troponin 5 6HR Delta 1.55 ng/L (0-12)
[2020-01-09 01:40] LABS: Add Urine Microscopic? NO
[2020-01-09 02:03] LABS: Bilirubin Urine Neg (Negative); Blood Urine Neg (Negative); Glucose Urine UA Norm (Normal); Ketones Urine Negative (Negative); Leukocyte Esterase Urine Negative (Negative); Nitrate Urine Negative (Negative); Protein Urine Neg (Negative); Specific Gravity, Urine 1.025 (1.005-1.030); Urine Appearance Clear (CLEAR); Urine Color Yellow (Yellow); Urobilinogen Urine Norm (Negative); pH Urine 6.5 (5-7)
[2020-01-09] MEDS: enoxaparin 40 mg/0.4 mL Syringe SUBCUT (02:05)
[2020-01-09 04:44] LABS: Basophils % 0.3 %; Eosinophils # 0.1 10^3/uL (0.0-0.8); Eosinophils % 0.4 %; Hematocrit 37.9 % (37.0-47.0); Hemoglobin 11.6 g/dL (11.5-15.3); Lymphocytes # 1.3 10^3/uL (0.8-4.8); Lymphocytes % 11.5 %; Mean Corpuscular HGB Conc 30.6 g/dL (30.0-36.0); Mean Corpuscular Hemoglobin 27.6 pg (28.0-34.0); Mean Platelet Volume 9.2 fL (7.4-10.4); Monocytes # 0.9 10^3/uL (0.2-0.9); Monocytes % 7.7 %; Neutrophils # 9.06 10^3/uL (1.8-7.7); Neutrophils % 79.2 %; Nucleated Red Blood Cells % 0 %; Platelet Count 363 10^3/cmm (130-400); Red Blood Count 4.21 10^6/uL (4.1-5.3); Red Cell Distribution Width 14.6 % (12.1-15.1); White Blood Count 11.4 10^3/uL (4.0-10.0)
[2020-01-09 05:12] LABS: Alanine Aminotransferase 68 U/L (0-33); Albumin Level 3.7 g/dL (3.5-5.2); Alkaline Phosphatase 124 IU/L (35-105); Anion Gap 10.4 (5-19); Aspartate Amino Transferase 51 U/L (0-32); Blood Urea Nitrogen 8 mg/dL (6-20); Calcium 8.8 mg/dL (8.5-10.5); Carbon Dioxide 32 mmol/L (22-29); Chloride 96 mmol/L (98-107); Globulin 2.7 g/dL (1.3-4.6); Glomerular Filtration Rate 127.6 mL/min (90-130); Glucose 138 mg/dL (65-115); Magnesium 2.1 mg/dL (1.7-2.3); Osmolality Calculated 279 mOsm/kg (285-295); Phosphorus 2.5 mg/dL (2.5-4.5); Potassium 4.4 mmol/L (3.5-5.1); Sodium 134 mmol/L (136-145); Total Bilirubin 0.2 mg/dL (0.15-1.2); Total Protein 6.4 g/dL (6.6-8.7)
[2020-01-09 07:41] LABS: Glucose Point of Care 113 mg/dL (70-110)
[2020-01-09] MEDS: PARoxetine 20 mg Tablet 40 MG PO (09:55)
[2020-01-09] MEDS: pantoprazole DR 40 mg Tablet PO (09:57)
[2020-01-09] MEDS: levothyroxine 150 mcg Tablet 75 MCG PO (09:57)
[2020-01-09] MEDS: gabapentin 400 mg Capsule PO (09:57)
[2020-01-09] MEDS: cefTRIAXone 1,000 MG in sodium chloride 0.9% (plus) 50 ML 100 MG IV (09:59)
[2020-01-09 11:40] LABS: Glucose Point of Care 116 mg/dL (70-110)
--- NOTE | 2020-01-11 08:19 | PM.DCS ---
Discharge Providers Date of Admission: 01/08/20 21:31 Date of Discharge: January 09, 2020 Attending Provider at Admission: Tawanda Ibarra MD Attending Provider at Discharge: Tawanda Ibarra MD Primary Care Provider: Lida Santamaria DO Diagnoses at Discharge Discharge Diagnosis (1) Hypercapnic respiratory failure: Status: Resolved (2) Leukocytosis: Status: Resolved (3) Hypothyroidism: Status: Chronic (4) Controlled diabetes mellitus: Status: Chronic (5) Essential (primary) hypertension: Status: Chronic (6) Chronic GERD: Status: Chronic Reason for Visit Reason for Visit: n/v in pain Hospital Course Hospital Course: 54 year old female with PMH of HTN,DM, AMBER,GERD,chronic pain syndrome, came in after accidental fentanyl overdose upon arrival in the ER she received 2 doses of narcan to which she responded transiently and ultimately ended up being placed on narcan drip. CTA chest was done : P.E was ruled out. ABG done in ER: Ph: 7.21 ,pco2: 88 po2: 85, She was intilally kept on Bipap which she failed to tolerate,Repeat ABG done later : Ph:7.36, Pco2:55 Po2: 79 . EKG:SINUS RHYTHM.She was admitted to MICU overnight and was later kept on BIPAP overnight.She responded to above medical management well and was discharged in stable condition.At the time of discharge she required 3 L home oxygen as she was desturating to below 85 % on Room air.She will follow her PCP as well as weatherization and housing inspector as outpatient. Physical Exam Const: COMMON NORMALS: patient oriented x3 HENMT: COMMON NORMALS: normocephalic, atraumatic, hearing grossly normal bilaterally and external ears normal HEAD & SCALP: normocephalic and atraumatic EXTERNAL EAR: Yes external ears normal Eye: COMMON NORMALS: no scleral icterus GENERAL EYE: appearance normal, both eyes and all related structures Chest: COMMONS NORMALS: normal inspection of the chest and normal palpation of entire chest wall CHEST: Yes Symmetrical chest wall rise Resp: COMMON NORMALS: normal respiratory effort, No retractions, No use of accessory muscles and clear to auscultation bilaterally EFFORT & INSPECTION: Yes symmetric chest movement AUSCULTATION: clear to auscultation bilaterally Cardio: COMMON NORMALS: regular rate, regular rhythm, S1 normal heart sound present, S2 normal heart sound present, No gallops present (Cardio), No murmurs present (Cardio), No rub (Cardio) and Peripheral pulses 2+ throughout RATE: regular rate RHYTHM: regular rhythm HEART SOUNDS: S1 normal heart sound present and S2 normal heart sound present PERIPHERAL PULSES: Peripheral pulses 2+ throughout GI: COMMON NORMALS: Normal to inspection, nondistended, normoactive bowel sounds present, Soft to palpation, non-tender, No hepatosplenomegaly present and no masses AUSCULTATION: Yes normoactive bowel sounds PALPATION: Yes Soft to palpation and Yes No hepatosplenomegaly present RECTAL EXAM: deferred Extremity: COMMON NORMALS: no clubbing, cyanosis or edema and no pedal edema Neuro: COMMON NORMALS: patient oriented x3 Discharge Data Data Completed and Pending: Completed Studies During Hospitalization Category Date Time Status CT angio chest w abd pel w con Urge nt Cat Scan 01/08/20 18:48 Completed XR chest 1V shana ble [id number] Stat Exams 01/08/20 18:15 Completed Pending at discharge Category Date Time Status Blood Culture Sta t Lab 01/08/20 19:21 Results Vitals: Last Vital Signs Temp 99.2 F 01/09/20 00:00 Pulse 85 01/09/20 12:00 Resp 20 H 01/09/20 10:00 BP 112/71 01/09/20 12:00 Pulse Ox 94 01/09/20 12:00 Discharge Plan Discharge Patient Disposition: Home Condition: Stable Prescriptions: Continued pseudoephedrine HCl 60 mg tablet 30 mg PO Q4H RF: 0 gabapentin 400 mg capsule 400 mg PO TID RF: 0 fentanyl 75 mcg/hr patch 72 hour 1 patch TRANSDERMA Q72H RF: 0 oxycodone 10 mg tablet 10 mg PO Q6H PRN (Reason: Pain) RF: 0 ondansetron 4 mg tablet,disintegrating 4 mg PO Q6H Qty: 90 RF: 0 clonazepam 0.5 mg tablet 0.5 mg PO DAILY Qty: 40 RF: 4 metformin 500 mg tablet 500 mg PO BID Qty: 180 RF: 1 omeprazole 20 mg capsule,delayed release(DR/EC) 20 mg PO DAILY Qty: 90 RF: 0 paroxetine HCl [Paxil] 40 mg tablet 40 mg PO DAILY Qty: 90 RF: 0 hydrochlorothiazide 25 mg tablet 25 mg PO DAILY Qty: 90 RF: 1 albuterol sulfate [Ventolin HFA] 90 mcg/actuation HFA aerosol inhaler 2 puff INHALATION Q6H PRN (Reason: shortness of breath or wheezing) Qty: 8.5 RF: 0 azithromycin 250 mg tablet See Rx Instructions PO .COMPLEX Qty: 6 RF: 0 pantoprazole 40 mg tablet,delayed release (DR/EC) 40 mg PO DAILY Qty: 90 RF: 0 pravastatin 40 mg tablet 40 mg PO ONCE Qty: 90 RF: 0 ropinirole 1 mg tablet 1 mg PO TID Qty: 270 RF: 0 memantine 10 mg tablet 10 mg PO BID Qty: 180 RF: 1 levothyroxine 75 mcg capsule 75 mcg PO DAILY Qty: 90 RF: 0 Rexulti 0.5 mg tablet 0.5 mg PO DAILY Qty: 90 RF: 0 lamotrigine 200 mg tablet 200 mg PO DAILY Qty: 90 RF: 0 Diflucan 150 mg tablet 150 mg PO DAILY RF: 0 amlodipine 5 mg tablet 5 mg PO DAILY RF: 0 trazodone 100 mg tablet 100 mg PO DAILY RF: 0 losartan 100 mg tablet 100 mg PO DAILY RF: 0 cyclobenzaprine 10 mg tablet 10 mg PO TID RF: 0 oxycodone-acetaminophen 10-325 mg tablet 1 tab PO QID PRN (Reason: Pain) RF: 0 Discharge Orders: Discharge Order (Routine); Ordered 01/09/20 Ordered By: Tawanda Ibarra Other Ambulatory Orders: DME: Oxygen (Order) Location: None Selected Ordered By: Tawanda Ibarra Referrals: [facility] [Outside] (THIS WILL BE YOUR HOME OXYGEN PROVIDOR PLEASE CALL THEM FOR YOUR NEEDS. ) Mike Arnold MD [Physician] - 2 weeks (THIS FOLLOW UP APPOINTMENT HAS BEEN SCHEDULED FOR JANUARY 22, 2020 AT 11:00 AM , IF UNABLE TO KEEP APPOINTMENT AT THIS TIME PLEASE CALL TO RESCHEDULE. ) Lida Santamaria DO [Primary Care Provider] - 4-7 days (LEFT MESSAGE ON [facility] WILL RETURN CALL FOR APPOINTMENT , IF YOU DO NOT HEAR FROM THEM , PLEASE CALL FOR APPOINTMENT. ) Patient Instructions: Narcotic Pain Management (DC), Using Oxygen at Home (DC), Gastroesophageal Reflux Disease (DC), COPD Stoplight Discharge Date/Time: 01/09/20 13:30 Discharge Attestations Time Spent in Discharge Care*: greater than 30 min Specific Discharge Activities: Specific discharge activities: educating patient, educating and/or supporting family/caregiver, discussing with pcp/other providers, discussing with registered nurse hh case manager/social workers/dc planners, documenting/other paperwork and evaluating patient/reviewing data Status at Discharge: Cognitive status at discharge: cognitively intact, Behavioral status at discharge: cooperative, Functional status at discharge: independent ambulation Overall status at discharge: patient is back to baseline Quality Metrics Clinical Quality Measures During this hospital stay, did patient experience: None Coding Level of Care Code Acute Green Building Engineer for [facility] Fwd Diagnoses Hypercapnic respiratory failure J96.92 Leukocytosis D72.829 Hypothyroidism E03.9 Controlled diabetes mellitus E11.9 Essential (primary) hypertension I10 Chronic GERD K21.9
--- NOTE | 2020-01-11 15:19 | PC.SOCIAL ---
BC results called to this nurse by Milo in [employer]. Left message for Dr Valladares nurse. Discussed with patient the results. She is not experiencing any fever, vomiting, chills or severe weakness at this time. She has appt with Dr Santamaria on 01/16/2020. Let her know that Dr Santamaria will receive email with results and if she starts having symptoms as above to see PCP sooner or return to ED for evaluation. Dr Santamaria office may call her if needed or see her on the as planned. She verbalized understanding and had no further questions. Only reports her stomach being a little queasy since discharge. She was encouraged to discuss results with PCP. Sent Dr Santamaria email indicating high importance and requested a read receipt.
== END 2020-01-09 13:30 | disposition home or self-care (01) | DRG 917 ==
LOC: ER 23:00 → ICU 23:36
PROVIDERS: Internal Medicine; Admitting Provider Internal Medicine; Emergency Provider Emergency Medicine; PCP Family Medicine; Visit Provider Internal Medicine
DX: T40.411A Poisoning by fentanyl or fentanyl analogs, accidental (unintentional), initial encounter (principal); J96.92 Respiratory failure, unspecified with hypercapnia; Y92.9 Unspecified place or not applicable; E11.9 Type 2 diabetes mellitus without complications; I10 Essential (primary) hypertension; G47.33 Obstructive sleep apnea (adult) (pediatric); K21.9 Gastro-esophageal reflux disease without esophagitis; G89.4 Chronic pain syndrome; G56.02 Carpal tunnel syndrome, left upper limb; M50.30 Other cervical disc degeneration, unspecified cervical region; F32.9 Major depressive disorder, single episode, unspecified; F41.1 Generalized anxiety disorder; Z96.651 Presence of right artificial knee joint; E03.9 Hypothyroidism, unspecified; Z79.891 Long term (current) use of opiate analgesic
CPT/HCPCS: 12345; 36415; 36416; 36600; 71045; 71275; 74177; 80053; 81003; 82803; 82962; 83605; 83690; 83735; 84100; 84484; 85025; 85378; 85610; 87040; 87077; 87186; 87205; 87400; 87635; 93005; 94660; 96372; 99284; J0696; J1650; J2310; J7030; Q9967

== ENCOUNTER → 2020-03-24 10:58 | Outpatient (BNVA) | payer MEDICARE, MEDICAID, SELFPAY | PROVIDERS: PCP Family Medicine; Visit Provider Nurse Practitioner Family | DX: Z20.828 Contact with and (suspected) exposure to other viral communicable diseases (principal) | CPT/HCPCS: 87635 ==

== ENCOUNTER 2020-04-08 22:37 | Inpatient (IN) | payer MEDICARE, MEDICAID, SELFPAY ==
[2020-04-08] VITALS (15 sets, daily range): BP systolic 120–145; BP diastolic 65–95; PULSE 95–105; RESP 14–25; TEMP 37.4; O2SAT 50–92; BMI 51.5
--- NOTE | 2020-04-08 22:46 | XR_ITS ---
WS: [id number] Portable AP upright chest, 04/08/2020 Clinical Data: sob Comparison: Portable chest, 01/08/2020. Findings: There are bilateral patchy opacities. The opacities are in the right upper lobe, right lowe r lobe and left lower lobe. The left upper lobe is spared. The heart is enlarged. Monitor leads are o n the chest wall. XR/XR chest 1V portable [id number] Impression: 1. Bilateral patchy opacities with more on the right than left. 2. Cardiomegaly.
--- NOTE | 2020-04-08 22:46 | ECG_ITS ---
[facility] Test Date: 2020-04-08 Pat Name: Shannan Hummel Department: Room: 210 Gender: Female Property Supervisor: : 1965 Requested By: Kapil Sarmiento Order Number: [id number] Ulises MD: Xavier Hutton M.D. Measurements Intervals [place] Rate: 104 P: 21 [place]: 137 QRS: 40 QRSD: 91 T: 54 QT: 333 QTc: 440 Interpretive Statements SINUS TACHYCARDIA ABNORMAL RHYTHM ECG WARNING: DATA QUALITY MAY AFFECT INTERPRETATION Compared to ECG 01/09/2020 03:01:07 Sinus rhythm no longer present Electronically Signed On 04-09-2020 20:00:30 ENVIRONMENTAL MAINTENANCE WORKER by Xavier Hutton M.D. [id number]
--- NOTE | 2020-04-08 22:50 | W.ED.SOB ---
HPI - SOB/Dyspnea General: Chief Complaint: Shortness of Breath/Dyspnea Stated Complaint: SOB Time Seen by Provider: 04/08/20 22:44 Source: patient and EMS Mode of arrival: EMS Limitations: no limitations History of Present Illness: HPI Narrative: 54-year-old female with EMS because she is having severe hypoxia. Instantly arrived her pulse ox was in the 60s and she is currently on a nonrebreather and still the 70s. Patient has been in contact with people and Covid including her who is recently admitted to the viral ICU with Covid. Patient states she is having some shortness of breath and having cough. Denies any fever. Denies any worsening improving factors. Patient is not in distress with tachypnea. Associated symptoms: Deny abdominal pain, chest pain, fever(s), nausea or vomiting Review of Systems Const: Denies: fever(s), chills, body aches or change in appetite Eyes: Denies: blurry vision or eye discomfort ENMT: Denies: throat pain or dental pain Card: Denies: chest pain Resp: Reports: dyspnea GI: Denies: abdominal pain, nausea, vomiting or diarrhea : Denies: dysuria Musc: Denies: neck pain or back pain Skin/Breast: Denies: rash Neuro: Denies: headache(s) Psych: Denies: depression Farshad/Lymph: Denies: easy bruising All/Imm: Denies: urticaria PFSH ED PFSH: Medical History (Updated 04/09/20 @ 00:28 by Kapil Sarmiento MD) Carpal tunnel syndrome of left wrist Chronic GERD Controlled diabetes mellitus DDD (degenerative disc disease), cervical Depression Essential (primary) hypertension DENILSON (generalized anxiety disorder) Hypercapnic respiratory failure Hypothyroidism Leukocytosis Surgical History H/O section H/O craniotomy H/O total knee replacement RIGHT History of ankle surgery History of cholecystectomy History of colonoscopy (~2018) Family History Father Stroke Mother Cancer Social History Smoking and tobacco status: never smoked Alcohol intake: never Female Reproductive History: Date of last menstrual period: 01/13/05 Physical Exam Const: COMMON NORMALS: patient oriented x3 GENERAL APPEARANCE: in distress and ill appearing HENMT: COMMON NORMALS: normocephalic and atraumatic HEAD & SCALP: normocephalic and atraumatic Eye: COMMON NORMALS: Equal, round and reactive pupils present and EOMs intact bilaterally PUPIL: Yes Equal, round and reactive pupils present Neck/C-Spine: COMMON NORMALS: full ROM and supple Chest: COMMONS NORMALS: normal inspection of the chest and normal palpation of entire chest wall Resp: COMMON NORMALS: No retractions EFFORT & INSPECTION: Yes respiratory distress AUSCULTATION: rales and rhonchi Cardio: COMMON NORMALS: regular rate, regular rhythm and No murmurs present (Cardio) RATE: regular rate RHYTHM: regular rhythm GI: COMMON NORMALS: Normal to inspection, nondistended, normoactive bowel sounds present, Soft to palpation, non-tender and no masses PALPATION: Yes Soft to palpation Extremity: COMMON NORMALS: normal to inspection and full ROM Neuro: COMMON NORMALS: patient oriented x3, moves all extremities and no focal motor deficits Psych: COMMON NORMALS: mental status grossly normal, Normal thought process present and cooperative THOUGHT PROCESS: Normal thought process present Skin: COMMON NORMALS: no rashes or lesions noted and no wounds GENERAL SKIN EXAM: no rashes or lesions noted Course Vital Signs: Vital signs: Vital Signs Temperature 99.3 F 04/08/20 22:49 Pulse Rate 96 04/09/20 01:11 Respiratory Rate 16 04/09/20 01:11 Blood Pressure 118/62 04/09/20 01:11 Pulse Oximetry 93 04/09/20 01:11 MDM - SOB/Dyspnea MDM Narrative: Medical decision making narrative: Patient presents with Covid pneumonia. Patient's been tolerating BiPAP well is awake and alert able to compensate on the BiPAP. Patient was seen by the hospitalist down the ER and will admit to the viral ICU. Patient given Decadron in the ER. Lab Data: Labs: Lab Results 04/08/20 04/08/20 04/08/20 Range/Units 22:49 22:49 22:49 WBC 14.3 H (4.0-10.0) 10^3/ uL RBC 4.89 (4.1-5.3) 10^6/u L Hgb 12.9 (11.5-15.3) g/dL Hct 42.8 (37.0-47.0) % MCV 87.5 (81-99) fL MCH 26.4 L (28.0-34.0) pg MCHC 30.1 (30.0-36.0) g/dL RDW 15.8 H (12.1-15.1) % Plt Count 283 (130-400) 10^3/c mm MPV 11.0 H (7.4-10.4) fL Neut % (Auto) 91.2 % Lymph % (Auto) 4.4 % Beaver % (Auto) 3.6 % Eos % (Auto) 0.1 % Baso % (Auto) 0.3 % Neut # (Auto) 13.08 H (1.8-7.7) 10^3/u L Lymph # (Auto) 0.6 L (0.8-4.8) 10^3/u L Beaver # (Auto) 0.5 (0.2-0.9) 10^3/u L Eos # (Auto) 0.0 (0.0-0.8) 10^3/u L Baso # (Auto) 0.0 (0.0-0.1) 10^3/u L Nucleated RBC % (a uto) 0 % Nucleated RBCs # 0.0 /100WBC Fibrinogen 641 H (174-498) mg/dL D-Dimer 1.10 H (0-0.59) ug/mIFE U Specimen Type Sample Site ABG pH (7.35-7.45) ABG pCO2 (35-45) mmHg ABG pO2 (80.0-100.0) mmH g ABG HCO3 (22-26) mmol/L ABG Base Excess (-2.0-2.0) mmol/ L Bernardino Test Hematocrit (37-47) % O2 Delivery Device FiO2 % Aviation Electronic Warfare Operator ID Sodium 132 L (136-145) mmol/L Potassium 4.3 (3.5-5.1) mmol/L Chloride 92 L (98-107) mmol/L Carbon Dioxide 30 H (22-29) mmol/L Anion Gap 14.3 (5-19) BUN 8 (6-20) mg/dL Creatinine 0.5 (0.5-0.9) mg/dL GFR Calculation 127.6 (90-130) mL/min Glucose 190 H (65-115) mg/dL Calculated Osmolal ity 277 L (285-295) mOsm/k g Lactic Acid (0.5-2.2) mmol/L Calcium 7.9 L (8.5-10.5) mg/dL Total Bilirubin 0.2 (0.15-1.2) mg/dL AST 34 H (0-32) U/L ALT 35 H (0-33) U/L Alkaline Phosphata se 223 H (35-105) IU/L C-Reactive Protein 192.7 H (0.0-4.9) mg/L NT-Pro-B Natriuret Pep 1240 H (0-125) pg/mL Total Protein 6.1 L (6.6-8.7) g/dL Albumin 3.1 L (3.5-5.2) g/dL Globulin 3.0 (1.3-4.6) g/dL SARS-CoV-2 Ag (Rap id) (Negative) 04/08/20 04/08/20 04/08/20 Range/Units 22:49 22:55 23:02 WBC (4.0-10.0) 10^3/ uL RBC (4.1-5.3) 10^6/u L Hgb (11.5-15.3) g/dL Hct (37.0-47.0) % MCV (81-99) fL MCH (28.0-34.0) pg MCHC (30.0-36.0) g/dL RDW (12.1-15.1) % Plt Count (130-400) 10^3/c mm MPV (7.4-10.4) fL Neut % (Auto) % Lymph % (Auto) % Beaver % (Auto) % Eos % (Auto) % Baso % (Auto) % Neut # (Auto) (1.8-7.7) 10^3/u L Lymph # (Auto) (0.8-4.8) 10^3/u L Beaver # (Auto) (0.2-0.9) 10^3/u L Eos # (Auto) (0.0-0.8) 10^3/u L Baso # (Auto) (0.0-0.1) 10^3/u L Nucleated RBC % (a uto) % Nucleated RBCs # /100WBC Fibrinogen (174-498) mg/dL D-Dimer (0-0.59) ug/mIFE U Specimen Type Arterial Sample Site Brachial, right ABG pH 7.37 (7.35-7.45) ABG pCO2 55.9 H (35-45) mmHg ABG pO2 51.0 L (80.0-100.0) mmH g ABG HCO3 32.5 H (22-26) mmol/L ABG Base Excess 5.7 H (-2.0-2.0) mmol/ L Bernardino Test Pos Hematocrit 41.7 (37-47) % O2 Delivery Device Bipap FiO2 100.0 % Aviation Electronic Warfare Operator ID Jlg Sodium (136-145) mmol/L Potassium (3.5-5.1) mmol/L Chloride (98-107) mmol/L Carbon Dioxide (22-29) mmol/L Anion Gap (5-19) BUN (6-20) mg/dL Creatinine (0.5-0.9) mg/dL GFR Calculation (90-130) mL/min Glucose (65-115) mg/dL Calculated Osmolal ity (285-295) mOsm/k g Lactic Acid 1.9 (0.5-2.2) mmol/L Calcium (8.5-10.5) mg/dL Total Bilirubin (0.15-1.2) mg/dL AST (0-32) U/L ALT (0-33) U/L Alkaline Phosphata se (35-105) IU/L C-Reactive Protein (0.0-4.9) mg/L NT-Pro-B Natriuret Pep (0-125) pg/mL Total Protein (6.6-8.7) g/dL Albumin (3.5-5.2) g/dL Globulin (1.3-4.6) g/dL SARS-CoV-2 Ag (Rap id) Positive H (Negative) 04/09/20 Range/Units 00:22 WBC (4.0-10.0) 10^3/ uL RBC (4.1-5.3) 10^6/u L Hgb (11.5-15.3) g/dL Hct (37.0-47.0) % MCV (81-99) fL MCH (28.0-34.0) pg MCHC (30.0-36.0) g/dL RDW (12.1-15.1) % Plt Count (130-400) 10^3/c mm MPV (7.4-10.4) fL Neut % (Auto) % Lymph % (Auto) % Beaver % (Auto) % Eos % (Auto) % Baso % (Auto) % Neut # (Auto) (1.8-7.7) 10^3/u L Lymph # (Auto) (0.8-4.8) 10^3/u L Beaver # (Auto) (0.2-0.9) 10^3/u L Eos # (Auto) (0.0-0.8) 10^3/u L Baso # (Auto) (0.0-0.1) 10^3/u L Nucleated RBC % (a uto) % Nucleated RBCs # /100WBC Fibrinogen (174-498) mg/dL D-Dimer (0-0.59) ug/mIFE U Specimen Type Arterial Sample Site Radial, left ABG pH 7.37 (7.35-7.45) ABG pCO2 54.2 H (35-45) mmHg ABG pO2 72.6 L (80.0-100.0) mmH g ABG HCO3 31.1 H (22-26) mmol/L ABG Base Excess 4.4 H (-2.0-2.0) mmol/ L Bernardino Test Pos Hematocrit 41.2 (37-47) % O2 Delivery Device Bipap FiO2 100.0 % Aviation Electronic Warfare Operator ID Harkr Sodium (136-145) mmol/L Potassium (3.5-5.1) mmol/L Chloride (98-107) mmol/L Carbon Dioxide (22-29) mmol/L Anion Gap (5-19) BUN (6-20) mg/dL Creatinine (0.5-0.9) mg/dL GFR Calculation (90-130) mL/min Glucose (65-115) mg/dL Calculated Osmolal ity (285-295) mOsm/k g Lactic Acid (0.5-2.2) mmol/L Calcium (8.5-10.5) mg/dL Total Bilirubin (0.15-1.2) mg/dL AST (0-32) U/L ALT (0-33) U/L Alkaline Phosphata se (35-105) IU/L C-Reactive Protein (0.0-4.9) mg/L NT-Pro-B Natriuret Pep (0-125) pg/mL Total Protein (6.6-8.7) g/dL Albumin (3.5-5.2) g/dL Globulin (1.3-4.6) g/dL SARS-CoV-2 Ag (Rap id) (Negative) EKG Data^: EKG 1: Attestation: I personally reviewed and interpreted this EKG as follows: EKG Interpretation Date: 04/08/20 EKG interpretation time: 22:59 Interpretation: sinus tach hr [address] or t wave abnormalities qrs 91 qtc 394 Critical Care Time Critical Care Time: Critical Care Time: Yes Total Critical Care Time: 35 Attestation: This case had a high probability of a clinically significant, sudden, or life threatening deterioration of this patient's condition which required my full and direct attention, intervention and personal management. Discharge Plan Discharge Patient Disposition: Admitted As Inpatient Admit Provider: Timothy Casillas Clinical Impression: Pneumonia due to COVID-19 virus Condition: Stable Coding Level of Care Code ED Heat Treat Technician for [facility] Fwd Exam Comprehensive
[2020-04-08] MEDS: dexamethasone 4 mg/mL INJ 10 MG IVP (23:07)
[2020-04-08 23:11] LABS: ABG PCO2 55.9 mmHg (35-45); ABG PH Result 7.37 (7.35-7.45); Arterial Blood Gas Hematocrit 41.7 % (37-47); Base Excess ABG 5.7 mmol/L (-2.0-2.0); Blood Gas Allen Test Pos; Blood Gas Sample Site Brachial, right; Blood Gas Sample Type Arterial; HCO3 ABG 32.5 mmol/L (22-26); Oxygen Device BIPAP
[2020-04-08] MEDS: LORazepam 2 mg/mL INJ 1 mL 0.5 MG IVP (23:27)
[2020-04-08 23:30] LABS: Fibrinogen 641 mg/dL (174-498)
[2020-04-08 23:33] LABS: Basophils % 0.3 %; Eosinophils % 0.1 %; Hematocrit 42.8 % (37.0-47.0); Hemoglobin 12.9 g/dL (11.5-15.3); Lymphocytes # 0.6 10^3/uL (0.8-4.8); Lymphocytes % 4.4 %; Mean Corpuscular HGB Conc 30.1 g/dL (30.0-36.0); Mean Corpuscular Hemoglobin 26.4 pg (28.0-34.0); Mean Corpuscular Volume 87.5 fL (81-99); Monocytes # 0.5 10^3/uL (0.2-0.9); Monocytes % 3.6 %; Neutrophils # 13.08 10^3/uL (1.8-7.7); Neutrophils % 91.2 %; Nucleated Red Blood Cells % 0 %; Platelet Count 283 10^3/cmm (130-400); Red Blood Count 4.89 10^6/uL (4.1-5.3); Red Cell Distribution Width 15.8 % (12.1-15.1); White Blood Count 14.3 10^3/uL (4.0-10.0)
[2020-04-08 23:38] LABS: Lactic Sepsis W/Reflex 1.9 mmol/L (0.5-2.2)
[2020-04-08 23:44] LABS: Alanine Aminotransferase 35 U/L (0-33); Albumin Level 3.1 g/dL (3.5-5.2); Alkaline Phosphatase 223 IU/L (35-105); Anion Gap 14.3 (5-19); Aspartate Amino Transferase 34 U/L (0-32); Blood Urea Nitrogen 8 mg/dL (6-20); C Reactive Protein 192.7 mg/L (0.0-4.9); Calcium 7.9 mg/dL (8.5-10.5); Carbon Dioxide 30 mmol/L (22-29); Chloride 92 mmol/L (98-107); Glomerular Filtration Rate 127.6 mL/min (90-130); Glucose 190 mg/dL (65-115); NT Pro B Type Natriuretic Pept 1240 pg/mL (0-125); Osmolality Calculated 277 mOsm/kg (285-295); Potassium 4.3 mmol/L (3.5-5.1); Sodium 132 mmol/L (136-145); Total Bilirubin 0.2 mg/dL (0.15-1.2); Total Protein 6.1 g/dL (6.6-8.7)
[2020-04-09] VITALS (126 sets, daily range): BP systolic 72–139; BP diastolic 51–117; PULSE 63–126; RESP 9–33; TEMP 36.5–37.7; O2SAT 79–99
--- NOTE | 2020-04-09 00:08 | PC.NURSE ---
repositioned in the bed and patient educated on importance of leaving bipap mask on and not taking off spo2 detector.
[2020-04-09 00:20] LABS: SARS Covid-2 Antigen Positive (Negative)
[2020-04-09 00:32] LABS: ABG PCO2 54.2 mmHg (35-45); ABG PH Result 7.37 (7.35-7.45); Arterial Blood Gas Hematocrit 41.2 % (37-47); Base Excess ABG 4.4 mmol/L (-2.0-2.0); Blood Gas Allen Test Pos; Blood Gas Operator Identificat HARKR; Blood Gas Sample Site Radial, left; Blood Gas Sample Type Arterial; HCO3 ABG 31.1 mmol/L (22-26); Oxygen Device BIPAP; PO2 ABG 72.6 mmHg (80.0-100.0)
[2020-04-09] MEDS: FUROsemide 10 mg/mL SDV 4mL 40 MG IVP ×2 (00:44→20:25)
--- NOTE | 2020-04-09 01:01 | P.HP_ITS ---
Providers/Chief Complaint Admitting Physician: Timothy Casillas Primary Care Provider: Lida Santamaria DO Chief Complaint: SOB History of Present Illness Shannan Hummel is a 54 year old female, morbidly obese presented to the emergency department with a complaint of shortness of breath. Patient noted to be severely hypoxic with oxygen saturation in the 60s. She was on nonrebreather mask on on arrival. Chest x-ray done in the ED shows bilateral infiltrates consistent with Covid pneumonia. Has spouse is hospitalized for Covid pneumonia. Patient placed on BiPAP in the ED with 100% FiO2 resulting SPO2 of 93%. She has moderate leukocytosis but does not meet criteria for sepsis. She is admitted for further management. Review of Systems Narrative: Except as documented, all other systems reviewed and negative Medications/Allergies Home Medications Medication Instructions Recorded Confirmed Last Taken Type fentanyl 75 mcg/hr transdermal 1 patch TRANSDERMA Q72H 03/09/19 01/29/20 10/21/19 History patch gabapentin 400 mg capsule 400 mg PO TID 03/09/19 01/29/20 2 Days Ago History ~10/22/19 pseudoephedrine HCl 60 mg tablet 30 mg PO Q4H tab 03/09/19 01/29/20 Unknown History pantoprazole 40 mg tablet,delayed 40 mg PO DAILY #90 tab 07/10/19 01/29/20 1 Day Ago Rx release ~10/23/19 omeprazole 20 mg capsule,delayed 20 mg PO DAILY #90 cap 09/05/19 01/29/20 1 Day Ago Rx release ~10/23/19 clonazepam 0.5 mg tablet 0.5 mg PO DAILY #40 tab 10/03/19 01/29/20 3 Days Ago Rx ~10/21/19 albuterol sulfate 90 mcg/actuation 2 puff INHALATION Q6H PRN #8.5 gm 01/06/20 01/29/20 Unknown Rx aerosol inhaler cyclobenzaprine 10 mg PO TID 01/08/20 01/29/20 Unknown History losartan 100 mg PO DAILY 01/08/20 01/29/20 Unknown History oxycodone-acetaminophen 1 tab PO QID PRN 01/08/20 01/29/20 Unknown History memantine 10 mg tablet 10 mg PO BID #180 tab 01/16/20 01/29/20 Unknown Rx ondansetron 4 mg disintegrating 4 mg PO Q6H #90 tab 01/16/20 01/29/20 Unknown Rx tablet donepezil 10 mg tablet 10 mg PO DAILY #90 tab 01/23/20 01/29/20 Unknown Rx paroxetine HCl 40 mg tablet 40 mg PO DAILY #90 tab 01/28/20 01/29/20 Unknown Rx guaifenesin 1,200 mg tablet, 1,200 mg PO Q12H #20 tab 01/29/20 01/29/20 Unknown Rx extended release 12 hr sulfamethoxazole 800 1 tab PO BID #20 tab 01/29/20 01/29/20 Unknown Rx mg-trimethoprim 160 mg tablet amlodipine 5 mg tablet 5 mg PO DAILY #30 tab 02/05/20 Unknown Rx trazodone 100 mg tablet 100 mg PO DAILY #90 tab 03/06/20 Unknown Rx brexpiprazole 0.5 mg tablet 0.5 mg PO DAILY #30 tab 03/13/20 Unknown Rx hydrochlorothiazide 25 mg tablet 25 mg PO DAILY #30 tab 03/13/20 Unknown Rx levothyroxine 75 mcg capsule 75 mcg PO DAILY #30 cap 03/13/20 Unknown Rx metformin 500 mg tablet 500 mg PO BID #60 tab 03/24/20 Unknown Rx ropinirole 1 mg tablet 1 mg PO TID #90 tab 03/24/20 Unknown Rx lamotrigine 200 mg tablet 200 mg PO DAILY #14 tab 03/26/20 Unknown Rx pravastatin 40 mg tablet 40 mg PO ONCE #14 tab 03/26/20 Unknown Rx Allergies Allergy/AdvReac Type Severity Reaction Status Date / Time No Known Allergies Allergy Verified 03/24/20 10:43 PFSH Acute PFSH: Medical History (Updated 04/09/20 @ 01:24 by Timothy Casillas MD) Carpal tunnel syndrome of left wrist Chronic GERD Controlled diabetes mellitus DDD (degenerative disc disease), cervical Depression Essential (primary) hypertension DENILSON (generalized anxiety disorder) Hypercapnic respiratory failure Hypothyroidism Leukocytosis Surgical History H/O section H/O craniotomy H/O total knee replacement RIGHT History of ankle surgery History of cholecystectomy History of colonoscopy (~2017) Family History Father Stroke Mother Cancer Social History Smoking and tobacco status: never smoked Alcohol intake: never Female Reproductive History: Date of last menstrual period: 01/13/05 Vitals/I&O/Wt Last Vital Signs Temp 99.3 F 04/08/20 22:49 Pulse 92 04/09/20 00:40 Resp 9 L 04/09/20 00:22 BP 87/57 04/09/20 00:40 Pulse Ox 89 L 04/09/20 00:40 Weight last 48 hrs Weight 136.078 kg Physical Exam Const: COMMON NORMALS: patient oriented x3 GENERAL APPEARANCE: cooperative and in distress (Moderate) NUTRITIONAL APPEARANCE: obese HENMT: FACE & SINUS: other (BiPAP) Eye: COMMON NORMALS: EOMs intact bilaterally and conjunctivae normal Neck/C-Spine: COMMON NORMALS: full ROM and no JVD Lymph: LYMPHATIC: no lymphadenopathy noted Chest: COMMONS NORMALS: normal inspection of the chest CHEST: Yes Symmetri fariba chest wall rise Resp: EFFORT & INSPECTION: Yes tachypneic and Yes labored AUSCULTATION: crackles (Bilateral) Cardio: COMMON NORMALS: regular rate and regular rhythm GI: COMMON NORMALS: Normal to inspection, nondistended, normoactive bowel sounds present Back/Pelvis: COMMON NORMALS: thoraco-lumbar ROM normal Extremity: COMMON NORMALS: normal to inspection, full ROM and no clubbing, cyanosis or edema Neuro: COMMON NORMALS: patient oriented x3, moves all extremities and no focal motor deficits Psych: COMMON NORMALS: mental status grossly normal and cooperative Skin: COMMON NORMALS: no rashes or lesions noted and no jaundice Data : 04/09/20 03:05 04/09/20 03:05 A&P Assessment and plan (1) Acute respiratory failure with hypoxia: Status: Acute (2) Pneumonia due to COVID-19 virus: Status: Acute (3) Acid reflux: Status: Acute (4) Controlled diabetes mellitus: Status: Acute (5) DENILSON (generalized anxiety disorder): Status: Chronic Additional A&P Information Admit patient to the ICU. Respiratory therapy to evaluate and treat. BiPAP therapy. Start IV dexamethasone Start IV remdesivir Give 1 unit of convalescent plasma. Vitamin D and C supplementation Titrate oxygen. Insulin sliding scale for glucose monitoring. Watch for steroid-induced hyperglycemia Obtain blood cultures Monitor CBC and CMP. Hold antihypertensives due to soft blood pressure Attestations Medical Necessity Statement*: Patient presenting with shortness of breath, diagnosed with Covid pneumonia with acute respiratory failure needing noninvasive positive pressure ventilation. She will need to be hospitalized in the ICU for further management.. She is expected to spend more than 2 midnights. Coding Level of Care Code Acute Business Analyst Consultant for [facility] Fwd Exam Comprehensive Diagnoses Acute respiratory failure with hypoxia J96.01 Pneumonia due to COVID-19 virus U07.1; J12.89 Acid reflux K21.9 Controlled diabetes mellitus E11.9 DENILSON (generalized anxiety disorder) F41.1
[2020-04-09] MEDS: dexamethasone 4 mg/mL INJ 6 MG IVP ×2 (02:15→13:22)
[2020-04-09] MEDS: famotidine 20 mg/2 mL INJ IVP ×2 (02:15→13:22)
[2020-04-09 05:09] LABS: Basophils % 0.2 %; Hematocrit 42.9 % (37.0-47.0); Hemoglobin 13.1 g/dL (11.5-15.3); Lymphocytes # 0.5 10^3/uL (0.8-4.8); Lymphocytes % 2.9 %; Mean Corpuscular HGB Conc 30.5 g/dL (30.0-36.0); Mean Corpuscular Hemoglobin 26.6 pg (28.0-34.0); Mean Platelet Volume 11.1 fL (7.4-10.4); Monocytes # 0.4 10^3/uL (0.2-0.9); Monocytes % 2.2 %; Neutrophils # 16.25 10^3/uL (1.8-7.7); Neutrophils % 94.4 %; Nucleated Red Blood Cells % 0 %; Platelet Count 196 10^3/cmm (130-400); Red Blood Count 4.93 10^6/uL (4.1-5.3); Red Cell Distribution Width 15.8 % (12.1-15.1); White Blood Count 17.2 10^3/uL (4.0-10.0)
[2020-04-09 05:16] LABS: INR 0.96 (0.8-1.2)
[2020-04-09 05:23] LABS: Alanine Aminotransferase 38 U/L (0-33); Alkaline Phosphatase 294 IU/L (35-105); Aspartate Amino Transferase 43 U/L (0-32); Blood Urea Nitrogen 9 mg/dL (6-20); Calcium 8.4 mg/dL (8.5-10.5); Carbon Dioxide 27 mmol/L (22-29); Chloride 96 mmol/L (98-107); Globulin 3.5 g/dL (1.3-4.6); Glomerular Filtration Rate 127.6 mL/min (90-130); Glucose 167 mg/dL (65-115); Magnesium 1.9 mg/dL (1.7-2.3); Osmolality Calculated 280 mOsm/kg (285-295); Sodium 134 mmol/L (136-145); Total Bilirubin 0.3 mg/dL (0.15-1.2); Total Protein 6.5 g/dL (6.6-8.7)
--- NOTE | 2020-04-09 06:36 | PC.NURSE ---
TRANSFER FROM ER 0135- Patient brought to unit by ED RN and RT on nonrebreather at 15L. Patients oxygen saturation in the mid 80s. Patient transferred to bed and RT placed on BIPAP at 100% and . Patient is alert and oriented and expressed the need to urinate. At this time patient is 81%, diaphoretic and unstable to get up or exert for bedpan. Harrison catheter placed per physician. 600 mL urine returned when placed.
--- NOTE | 2020-04-09 06:36 | PC.NURSE ---
SHIFT SUMMARY Patient on BIPAP at 90%, and /. Patient remains alert and oriented x 4. 600 mL urine output.
[2020-04-09 07:51] LABS: Glucose Point of Care 185 mg/dL (70-110)
[2020-04-09] MEDS: acetaminophen 325 mg Tablet 650 MG PO (08:43)
[2020-04-09] MEDS: ascorbic acid 500 mg Tablet 1000 MG PO ×2 (08:43→18:18)
[2020-04-09] MEDS: levothyroxine 75 mcg Tablet PO (08:44)
--- NOTE | 2020-04-09 09:15 | PC.NURSE ---
Pt requested her earrings removed. Little silver colored loops, 3 removed from the left 1 removed from the right. Placed in Ziplock bag, with pt label placed on it. Bag placed in pts other belonging bag at her request.
[2020-04-09] MEDS: cholecalciferol (vitamin D3) 5,000 unit Tablet 5000 UNIT PO (09:33)
[2020-04-09] MEDS: memantine 5 mg tablet 10 MG PO ×2 (09:33→18:18)
[2020-04-09] MEDS: ropinirole 1 mg Tablet PO ×3 (09:33→20:25)
[2020-04-09] MEDS: lamoTRIgine 100 mg Tablet 200 MG PO (09:34)
[2020-04-09] MEDS: donepezil 5 MG Tablet 10 MG PO (09:34)
[2020-04-09] MEDS: CLONazepam 0.5 mg Tablet PO (09:34)
--- NOTE | 2020-04-09 10:52 | P.PN_ITS ---
Subjective Subjective: Interval history: was seen and examined today. She is still extremely short of breath and is requiring high supplemental oxygen. Her other Vitals and labs have been reviewed. Medications: Reviewed: Yes Vitals/I&O/Wt Last Vital Signs Temp 98.7 F 04/09/20 10:00 Pulse 86 04/09/20 10:18 Resp 24 H 04/09/20 10:00 BP 125/69 04/09/20 10:00 Pulse Ox 92 04/09/20 10:18 04/08/20 04/09/20 04/09/20 22:59 06:59 14:59 Intake Total 120 / 120 Output Total 600 / 600 Balance -600 / -600 120 / 120 Weight last 48 hrs Weight 130.997 kg Weight 136.078 kg Physical Exam Const: COMMON NORMALS: patient oriented x3 HENMT: COMMON NORMALS: normocephalic and atraumatic HEAD & SCALP: n ormocephalic and atraumatic Resp: OTHER: Coarse Breath sound B/L Cardio: COMMON NORMALS: regular rate, regular rhythm, S1 normal heart sound present, S2 normal heart sound present, No gallops present (Cardio), No murmurs present (Cardio), No rub (Cardio) and Peripheral pulses 2+ throughout RATE: regular rate RHYTHM: regular rhythm HEART SOUNDS: S1 normal heart sound present and S2 normal heart sound present PERIPHERAL PULSES: Peripheral pulses 2+ throughout GI: COMMON NORMALS: Normal to inspection, nondistended, normoactive bowel sounds present, Soft to palpation, non-tender, No hepatosplenomegaly present and no masses AUSCULTATION: Yes normoactive bowel sounds PALPATION: Yes Soft to palpation and Yes No hepatosplenomegaly present RECTAL EXAM: deferred Extremity: COMMON NORMALS: no clubbing, cyanosis or edema and no pedal edema Neuro: COMMON NORMALS: patient oriented x3 Data : 04/09/20 03:05 04/09/20 03:05 Micro: Microbiology 04/09/20 03:33 Blood Culture - Preliminary Blood SPECIMEN COLLECTED 04/09/20 03:05 Blood Culture - Preliminary Blood SPECIMEN COLLECTED A&P Assessment and plan (1) Acute respiratory failure with hypoxia: Ac Respiratory failure with hypoxia 2/2 to Severe ARDS 2/2 COVID PNA with possible superimposed Bacterial PNA. Pro-calcitonin in am : Lactic acid:1.9 Ferritin: CRP: D-dimer:1.10 chest x-ray:Bilateral patchy opacities with more on the right than left. ABG:Ph: 7.37,PCO2: 54, PO2: 72, FIO2: 100 % P/F: 70/1 Sputum culture: Blood Culture : Decadron 6 mg daily for 10 days Remdesivir 200 mg IV x1 today - > 100 mg IV daily x 4 days Emperically started on Levaquin 750 mg IV daily Lasix as needed Nebs Acorbic acid Zinc Status: Acute (2) ARDS (adult respiratory distress syndrome): Status: Acute (3) Pneumonia due to COVID-19 virus: Status: Acute (4) Acid reflux: Status: Acute (5) Controlled diabetes mellitus: Status: Acute (6) DENILSON (generalized anxiety disorder): Status: Chronic Additional A&P Information DVT PPX: Lovenox 40 mg sc daily Code status :Full code Disposition :Home Attestations Medical Necessity Statement*: Patient needs to be in hospital for the management of R/F Coding Level of Care Code Acute Hvac Field Service Technician for [facility] Fwd Exam Detailed Diagnoses Acute respiratory failure with hypoxia J96.01 ARDS (adult respiratory distress syndrome) J80 Pneumonia due to COVID-19 virus U07.1; J12.89 Acid reflux K21.9 Controlled diabetes mellitus E11.9 DENILSON (generalized anxiety disorder) F41.1
[2020-04-09] MEDS: ipratropium-albuterol 3 mL Neb INHALATION ×4 (11:05→23:39)
[2020-04-09 11:27] LABS: Glucose Point of Care 223 mg/dL (70-110)
[2020-04-09] MEDS: levofloxacin-dextrose 5 % 750 MG/150 ML PREMIX 100 MG IV (12:24)
[2020-04-09] MEDS: enoxaparin 40 mg/0.4 mL Syringe SUBCUT (12:24)
[2020-04-09] MEDS: remdesivir 200 MG in sodium chloride 0.9% (100 ml) 100 ML 100 MG IV (12:43)
[2020-04-09] MEDS: LORazepam 2 mg/mL INJ 1 mL IVP ×2 (13:22→20:26)
[2020-04-09] MEDS: oxyCODONE-APAP 5-325 mg Tablet PO ×2 (13:23→20:59)
[2020-04-09] MEDS: guaiFENesin 600 mg Tablet 1200 MG PO (13:25)
[2020-04-09] MEDS: sodium chloride 0.9% (100 ml) 100 ML (15:46)
--- NOTE | 2020-04-09 16:15 | PC.NURSE ---
Pt insistent that her daughter be called and told about the cat food, get Mikey to help with the bills and bring pt's hairbrush to hospital. Called the daughter, Lizett, these messages were relayed.
[2020-04-09 16:58] LABS: Glucose Point of Care 206 mg/dL (70-110)
--- NOTE | 2020-04-09 19:25 | PC.NURSE ---
Shift summary: Pt has switched between BiPap and Heated high flow a few times today. She had a hard time tolerated the HHF at first, did better after anxiety meds. BiPap was at 85% FIO2, the heated high flow at end of shift was 50liters/80% FIO2. Pt has wanted to stay in the bed all day. She stated she just wants to be knocked out while she is here. . She is worried about her daughters catching Covid. She has been restless, lost 2 IV from the flopping around in the bed this morning. Had to start a new IV today.She has been anxious and demanding at the end of the shift. She requires encouragement and directions repeated. She had a 1000ml of clear yellow urine output.
[2020-04-09 20:24] LABS: Glucose Point of Care 158 mg/dL (70-110)
[2020-04-09] MEDS: dexmedetomidine 400 MCG in sodium chloride 0.9% (100 ml) 100 ML IV (22:43)
[2020-04-10] VITALS (56 sets, daily range): BP systolic 107–188; BP diastolic 63–114; PULSE 64–94; RESP 14–37; TEMP 37.1–37.2; O2SAT 82–97
[2020-04-10] MEDS: dexamethasone 4 mg/mL INJ 6 MG IVP ×2 (02:35→12:23)
[2020-04-10] MEDS: famotidine 20 mg/2 mL INJ IVP ×2 (02:35→12:23)
[2020-04-10] MEDS: LORazepam 2 mg/mL INJ 1 mL IVP ×2 (02:35→20:38)
[2020-04-10] MEDS: ipratropium-albuterol 3 mL Neb INHALATION ×2 (03:28→20:11)
[2020-04-10 05:25] LABS: Ferritin 166 ng/mL (15-150)
[2020-04-10 05:26] LABS: Alanine Aminotransferase 34 U/L (0-33); Albumin Level 3.3 g/dL (3.5-5.2); Alkaline Phosphatase 229 IU/L (35-105); Anion Gap 13.7 (5-19); Aspartate Amino Transferase 31 U/L (0-32); Blood Urea Nitrogen 14 mg/dL (6-20); Carbon Dioxide 32 mmol/L (22-29); Chloride 94 mmol/L (98-107); Globulin 2.4 g/dL (1.3-4.6); Glomerular Filtration Rate 103.4 mL/min (90-130); Glucose 200 mg/dL (65-115); Osmolality Calculated 286 mOsm/kg (285-295); Potassium 4.7 mmol/L (3.5-5.1); Sodium 135 mmol/L (136-145); Total Bilirubin 0.3 mg/dL (0.15-1.2); Total Protein 5.7 g/dL (6.6-8.7)
--- NOTE | 2020-04-10 05:29 | PC.NURSE ---
ASSUMING CARE 1900- Patient on HHFNC at 50L and 80%. Patients oxygen between 85-88%. Patient is alert and oriented x 4. Report received from DELORES Terry. Dr. Ibarra called at change of shift to check on patient. Nurse relayed that she is on HHFNC at 50L and 80%. Physician states that he is okay with patient being between 87-89% as long as she is close to 90%.
--- NOTE | 2020-04-10 05:49 | PC.NURSE ---
BIPAP 2030- Patient placed on BIPAP by respiratory. Patients oxygen on HHFNC continued to decrease and patient was sustaining at 82%. Placed on BIPAP at 85% and 16/10. Oxygen saturation up to 97%.
--- NOTE | 2020-04-10 05:56 | PC.NURSE ---
BIPAP REFUSAL 0215- Nurse heard patient yelling. Patient states that call light not in reach, call light laying on patients stomach. Patient appears frustrated and is yelling at nurse. Patient wants BIPAP off, but oxygen saturation only 90% on 85%. Nurse attempted education on importance of BIPAP at this time and leaving on for extended period of time. Patient said, Well what was I on today, I was on something different? Nurse expressed that she was on HHFNC but did not tolerate so had to be put back on BIPAP per day shift nurse. Patient angrily expressed for nurse to take BIPAP off after education, respiratory notified and patient placed on HHFNC at 50L and 80%. Approximately 0250- Alarms going off, patient tachypneic and oxygen saturation of 81%. Patient agreeable to be placed on BIPAP again with education and voice of concern from RT and RN.
[2020-04-10 06:11] LABS: D Dimer 1.39 ug/mIFEU (0-0.59)
[2020-04-10 06:18] LABS: C Reactive Protein 223.4 mg/L (0.0-4.9)
[2020-04-10 06:33] LABS: Erythrocyte Sedimentation Rate 82 mm/hr (0-15)
[2020-04-10] MEDS: dexmedetomidine 400 MCG in sodium chloride 0.9% (100 ml) 100 ML 17 MCG IV (06:53)
[2020-04-10] MEDS: remdesivir 100 MG in sodium chloride 0.9% (100 ml) 100 ML IV (06:54)
--- NOTE | 2020-04-10 07:07 | PC.NURSE ---
SPOKE WITH FAMILY 2300 hour- Nurse called patients daughter, Lizett, last night to give update and discuss changes.
[2020-04-10] MEDS: lamoTRIgine 100 mg Tablet 200 MG PO (08:46)
[2020-04-10] MEDS: ropinirole 1 mg Tablet PO ×3 (08:46→20:38)
[2020-04-10] MEDS: oxyCODONE-APAP 5-325 mg Tablet PO ×4 (08:46→21:52)
[2020-04-10] MEDS: donepezil 5 MG Tablet 10 MG PO (08:46)
[2020-04-10] MEDS: cholecalciferol (vitamin D3) 5,000 unit Tablet 5000 UNIT PO (08:47)
[2020-04-10] MEDS: memantine 5 mg tablet 10 MG PO ×2 (08:47→17:30)
[2020-04-10] MEDS: ascorbic acid 500 mg Tablet 1000 MG PO ×2 (08:47→17:30)
[2020-04-10] MEDS: levothyroxine 75 mcg Tablet PO (08:47)
[2020-04-10] MEDS: FUROsemide 10 mg/mL SDV 4mL 40 MG IVP (10:48)
[2020-04-10] MEDS: enoxaparin 40 mg/0.4 mL Syringe SUBCUT ×2 (10:48→20:38)
[2020-04-10] MEDS: levofloxacin-dextrose 5 % 750 MG/150 ML PREMIX 100 MG IV (10:49)
--- NOTE | 2020-04-10 11:20 | PC.NURSE ---
Daughter Julio C called for an update. Spoke about pt's condition, remdesivir, precedex and convalescent plasma. All questions answered.,
[2020-04-10 11:31] LABS: Basophils % 0.2 %; Hematocrit 37.6 % (37.0-47.0); Lymphocytes # 0.5 10^3/uL (0.8-4.8); Mean Corpuscular HGB Conc 31.9 g/dL (30.0-36.0); Mean Corpuscular Hemoglobin 26.4 pg (28.0-34.0); Mean Corpuscular Volume 82.8 fL (81-99); Mean Platelet Volume 11.9 fL (7.4-10.4); Monocytes # 0.5 10^3/uL (0.2-0.9); Monocytes % 3.4 %; Neutrophils # 12.54 10^3/uL (1.8-7.7); Neutrophils % 91.7 %; Nucleated Red Blood Cells % 0 %; Platelet Count 461 10^3/cmm (130-400); Red Blood Count 4.54 10^6/uL (4.1-5.3); Red Cell Distribution Width 15.5 % (12.1-15.1); White Blood Count 13.7 10^3/uL (4.0-10.0)
[2020-04-10 11:59] LABS: Glucose Point of Care 233 mg/dL (70-110)
[2020-04-10 12:08] LABS: Glucose Point of Care 223 mg/dL (70-110)
[2020-04-10] MEDS: guaiFENesin 600 mg Tablet 1200 MG PO (12:28)
--- NOTE | 2020-04-10 12:33 | PC.NURSE ---
Pt requesting to be fed at meal time. Pt educated on using muscles to preserve muscle strength and encouraged to self care.
[2020-04-10] MEDS: dexmedetomidine 400 MCG in sodium chloride 0.9% (100 ml) 100 ML 10.2 MCG IV (14:28)
--- NOTE | 2020-04-10 19:22 | PC.NURSE ---
Report given to DELORES Paula.
--- NOTE | 2020-04-10 19:22 | PC.NURSE ---
Shift summary: Pt alert and oriented , she talks in her sleep some. She remains on Precedex, it is now at 0.3mcg/kg/hr. It was at 0.7mcg/kg/hr at beginning of shift, pt very somnolent. Pt wanted to be knocked out until she has recovered and ready to go home. Spoke with her at length about how her participation would help her recover better. The precedex does help relieve her anxiety well. She sat up in the chair most of the day. She received furosemide mid day. Urine output of 2200ml. SHe sat on BSC this evening, flatulence noted.
[2020-04-10 20:42] LABS: Glucose Point of Care 161 mg/dL (70-110)
--- NOTE | 2020-04-10 20:53 | PM.PN ---
Subjective Subjective: Interval history: was seen and examined today. She is still extremely short of breath and is requiring high supplemental oxygen. Her other Vitals and labs have been reviewed. Medications: Reviewed: Yes Vitals/I&O/Wt Last Vital Signs Temp 98.7 F 04/10/20 12:00 Pulse 72 04/10/20 20:20 Resp 20 H 04/10/20 20:11 BP 107/85 04/10/20 18:00 Pulse Ox 96 04/10/20 20:19 04/10/20 04/10/20 04/10/20 06:59 14:59 22:59 Intake Total 221.263 / 3335.263 1854.000 / 1854.000 500 / 2354.000 Output Total 425 / 2925 1450 / 1450 750 / 2200 Balance -203.737 / 410.263 404.000 / 404.000 -250 / 154.000 Weight last 48 hrs Weight 133.492 kg Weight 130.997 kg Weight 136.078 kg Physical Exam Const: COMMON NORMALS: patient oriented x3 HENMT: COMMON NORMALS: normocephalic and atraumatic HEAD & SCALP: normocephalic and atraumatic Resp: OTHER: Coarse Breath sound B/L Cardio: COMMON NORMALS: regular rate, regular rhythm, S1 normal heart sound present, S2 normal heart sound present, No gallops present (Cardio), No murmurs present (Cardio), No rub (Cardio) and Peripheral pulses 2+ throughout RATE: regular rate RHYTHM: regular rhythm HEART SOUNDS: S1 normal heart sound present and S2 normal heart sound present PERIPHERAL PULSES: Peripheral pulses 2+ throughout GI: COMMON NORMALS: Normal to inspection, nondistended, normoactive bowel sounds present, Soft to palpation, non-tender, No hepatosplenomegaly present and no masses AUSCULTATION: Yes normoactive bowel sounds PALPATION: Yes Soft to palpation and Yes No hepatosplenomegaly present RECTAL EXAM: deferred Extremity: COMMON NORMALS: no clubbing, cyanosis or edema and no pedal edema Neuro: COMMON NORMALS: patient oriented x3 Urinary Catheter Management^: Harrison: Cath Placed During This Visit: yes Reason for Continuing Indwelling Catheter: Accurate Measurement of Urinary Output in Critically Ill Patients Urinary Catheter Date of Insertion: 04/09/20 Urinary Catheter Time of Insertion: 00:45 Data : 04/10/20 10:49 04/10/20 03:56 Micro: Microbiology 04/09/20 03:33 Blood Culture - Preliminary Blood NEGATIVE TO DATE 04/09/20 03:05 Blood Culture - Preliminary Blood NEGATIVE TO DATE A&P Assessment and plan (1) Acute respiratory failure with hypoxia: Ac Respiratory failure with hypoxia 2/2 to Severe ARDS 2/2 COVID PNA with possible superimposed Bacterial PNA. Pro-calcitonin in am : Lactic acid:1.9 Ferritin: CRP: D-dimer:1.10 chest x-ray:Bilateral patchy opacities with more on the right than left. ABG:Ph: 7.37,PCO2: 54, PO2: 72, FIO2: 100 % P/F: 70/1 Sputum culture: Blood Culture : Decadron 6 mg daily for 10 days Remdesivir 200 mg IV x1 today - > 100 mg IV daily x 4 days Emperically started on Levaquin 750 mg IV daily Lasix as needed Nebs Acorbic acid Zinc Status: Acute (2) ARDS (adult respiratory distress syndrome): Status: Acute (3) Pneumonia due to COVID-19 virus: Status: Acute (4) Acid reflux: Status: Acute (5) Controlled diabetes mellitus: Status: Acute (6) DENILSON (generalized anxiety disorder): Status: Chronic Additional A&P Information DVT PPX: Lovenox 40 mg sc daily Code status :Full code Disposition :Home Attestations Medical Necessity Statement*: Patient needs to be in hospital for the management of R/F 2/2 TO COVID PNA Coding Level of Care Code 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
[2020-04-10] MEDS: dexmedetomidine 400 MCG in sodium chloride 0.9% (100 ml) 100 ML 23.8 MCG IV (23:54)
[2020-04-11] VITALS (36 sets, daily range): BP systolic 130–178; BP diastolic 67–101; PULSE 47–80; RESP 12–38; TEMP 37.1; O2SAT 86–97
[2020-04-11] MEDS: dexamethasone 4 mg/mL INJ 6 MG IVP ×2 (01:09→12:51)
[2020-04-11] MEDS: famotidine 20 mg/2 mL INJ IVP ×2 (01:09→12:51)
[2020-04-11] MEDS: LORazepam 2 mg/mL INJ 1 mL IVP (01:09)
[2020-04-11] MEDS: oxyCODONE-APAP 5-325 mg Tablet PO ×5 (02:05→19:48)
--- NOTE | 2020-04-11 04:09 | PC.NURSE ---
ASSUMING CARE 1900- Patient on HHFNC at 50L and 90% with an oxygen saturation of about 85-89%. Precedex gtt at 0.3 mcg/kg/hour. Harrison catheter in place and draining. Patient resting in bed with call light in reach.
--- NOTE | 2020-04-11 04:14 | PC.NURSE ---
BIPAP REFUSAL 0113- Patient heard yelling from her room. RT and RN reported to room to find patient had taken her BIPAP off and appeared angry. Patient was raising her voice and demanding BIPAP be left off after education on low oxygen saturation and need for BIPAP. Patient repeatedly asking the same questions and demanding pain medication and drink of water. Nurse verbalized that it was not time for pain medication yet and given a drink. Patient placed on HHFNC at 60L and 90% and would not agree for BIPAP to be put back on. Approximately 15 minutes later patient had to be placed back on BIPAP due to oxygen saturation of 82%, shallow breaths, and tachypnea. Patient agreed if nurse would give her another drink first.
[2020-04-11] MEDS: dexmedetomidine 400 MCG in sodium chloride 0.9% (100 ml) 100 ML 17 MCG IV (04:17)
--- NOTE | 2020-04-11 04:19 | PC.NURSE ---
BRADYCARDIA Patient experiencing bradycardia, but is not symptomatic at this time. Precedex drip turned down to 0.5 mcg/kg/hour and is now back to upper 60s, lower 70s.
--- NOTE | 2020-04-11 05:07 | PC.NURSE ---
HHFNC O2 Patient continues to desat to mid 80s on HHFNC. Patient asked if she would wear mask for a while longer. Patient refused. Patients oxygen fluctuates between 85-91% on HHFNC.
[2020-04-11] MEDS: remdesivir 100 MG in sodium chloride 0.9% (100 ml) 100 ML IV (06:16)
[2020-04-11 06:36] LABS: D Dimer 1.85 ug/mIFEU (0-0.59)
[2020-04-11 06:52] LABS: Alanine Aminotransferase 40 U/L (0-33); Alkaline Phosphatase 197 IU/L (35-105); Anion Gap 16.5 (5-19); Aspartate Amino Transferase 36 U/L (0-32); Blood Urea Nitrogen 16 mg/dL (6-20); C Reactive Protein 73.6 mg/L (0.0-4.9); Calcium 8.4 mg/dL (8.5-10.5); Carbon Dioxide 27 mmol/L (22-29); Chloride 91 mmol/L (98-107); Ferritin 155 ng/mL (15-150); Globulin 3.1 g/dL (1.3-4.6); Glomerular Filtration Rate 127.6 mL/min (90-130); Glucose 191 mg/dL (65-115); Osmolality Calculated 276 mOsm/kg (285-295); Potassium 4.5 mmol/L (3.5-5.1); Sodium 130 mmol/L (136-145); Total Bilirubin 0.3 mg/dL (0.15-1.2); Total Protein 6.1 g/dL (6.6-8.7)
--- NOTE | 2020-04-11 08:00 | PC.NURSE ---
Assisted pt out of bed, 1 assist, to chair in room. Pt did very well.
[2020-04-11 08:17] LABS: Glucose Point of Care 206 mg/dL (70-110)
[2020-04-11] MEDS: ipratropium-albuterol 3 mL Neb INHALATION (08:33)
[2020-04-11] MEDS: enoxaparin 40 mg/0.4 mL Syringe SUBCUT ×2 (08:53→22:25)
[2020-04-11] MEDS: FUROsemide 10 mg/mL SDV 4mL 40 MG IVP (08:53)
[2020-04-11] MEDS: memantine 5 mg tablet 10 MG PO ×2 (08:55→17:33)
[2020-04-11] MEDS: cholecalciferol (vitamin D3) 5,000 unit Tablet 5000 UNIT PO (08:55)
[2020-04-11] MEDS: lamoTRIgine 100 mg Tablet 200 MG PO (08:55)
[2020-04-11] MEDS: ascorbic acid 500 mg Tablet 1000 MG PO ×2 (08:56→17:33)
[2020-04-11] MEDS: ropinirole 1 mg Tablet PO ×3 (08:56→22:24)
[2020-04-11] MEDS: donepezil 5 MG Tablet 10 MG PO (08:56)
[2020-04-11] MEDS: levothyroxine 75 mcg Tablet PO (08:56)
--- NOTE | 2020-04-11 11:16 | PM.PN ---
Subjective Subjective: Interval history: was seen and examined today. She continues to requiring high supplemental oxygen.She has persistently required close to 80 to 90 % Supplemental oxygen on HHFONC.She has not tolerated BIPAP Well. Her other Vitals and labs have been reviewed. Medications: Reviewed: Yes Vitals/I&O/Wt Last Vital Signs Temp 98.7 F 04/10/20 12:00 Pulse 70 04/11/20 08:38 Resp 22 H 04/11/20 10:27 BP 166/83 04/11/20 06:00 Pulse Ox 88 L 04/11/20 10:27 04/10/20 04/11/20 04/11/20 22:59 06:59 14:59 Intake Total 1071.914 / 2925.914 635.469 / 3561.383 100 / 100 Output Total 750 / 2200 975 / 3175 Balance 321.914 / 725.914 -339.531 / 386.383 100 / 100 Weight last 48 hrs Weight 133.492 kg Physical Exam Const: COMMON NORMALS: patient oriented x3 HENMT: COMMON NORMALS: normocephalic and atraumatic HEAD & SCALP: normocephalic and atraumatic Resp: OTHER: Coarse Breath sound B/L Cardio: COMMON NORMALS: regular rate, regular rhythm, S1 normal heart sound present, S2 normal heart sound present, No gallops present (Cardio), No murmurs present (Cardio), No rub (Cardio) and Peripheral pulses 2+ throughout RATE: regular rate RHYTHM: regular rhythm HEART SOUNDS: S1 normal heart sound present and S2 normal heart sound present PERIPHERAL PULSES: Peripheral pulses 2+ throughout GI: COMMON NORMALS: Normal to inspection, nondistended, normoactive bowel sounds present, Soft to palpation, non-tender, No hepatosplenomegaly present and no masses AUSCULTATION: Yes normoactive bowel sounds PALPATION: Yes Soft to palpation and Yes No hepatosplenomegaly present RECTAL EXAM: deferred Extremity: COMMON NORMALS: no clubbing, cyanosis or edema and no pedal edema Neuro: COMMON NORMALS: patient oriented x3 Urinary Catheter Management^: Harrison: Cath Placed During This Visit: yes Reason for Continuing Indwelling Catheter: Accurate Measurement of Urinary Output in Critically Ill Patients Urinary Catheter Date of Insertion: 04/09/20 Urinary Catheter Time of Insertion: 00:45 Data : 04/10/20 10:49 04/11/20 04:44 A&P Assessment and plan (1) Acute respiratory failure with hypoxia: Ac Respiratory failure with hypoxia 2/2 to Severe ARDS 2/2 COVID PNA with possible superimposed Bacterial PNA. Pro-calcitonin in am Lactic acid:1.9 Ferritin: CRP: D-dimer:1.10---->1.39--->1.85 chest x-ray:Partial clearing of right lung opacities and left lower lobe opacities ABG:Ph: 7.37,PCO2: 54, PO2: 72, FIO2: 100 % P/F: 72/1 Sputum culture: Blood Culture :NTD Decadron 6 mg daily for 10 days Remdesivir 200 mg IV x1 today - > 100 mg IV daily x 4 days Emperically started on Levaquin 750 mg IV daily S/P 1 Bag Covalasent Plasma. 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
[2020-04-11] MEDS: levofloxacin-dextrose 5 % 750 MG/150 ML PREMIX 100 MG IV (11:20)
[2020-04-11 11:31] LABS: Glucose Point of Care 213 mg/dL (70-110)
[2020-04-11] MEDS: guaiFENesin 600 mg Tablet 1200 MG PO (12:43)
--- NOTE | 2020-04-11 12:52 | XR_ITS ---
WS: [id number] Portable AP upright chest, 04/11/2020 Clinical Data: sob Comparison: Portable chest, 04/08/2020. Findings: The patchy opacities in the right upper lobe and right lower lobe have cleared slightly. Th e left lower lobe opacity is also improved. The heart remains enlarged. The aortic arch is tortuous. There are monitor leads on the chest wall. XR/XR chest 1V portable [id number] Impression: 1. Partial clearing of right lung opacities and left lower lobe opacities. 2. No change in cardiomegaly.
--- NOTE | 2020-04-11 13:00 | PC.NURSE ---
Lizett, daughter called. Updated her on her mothr's progress. Video/audio chat done between mother and daughter via Ipad.
--- NOTE | 2020-04-11 14:20 | PC.NURSE ---
Luann, daughter , called for update. Updated her on her father's condition and progressive since last conversation.
[2020-04-11] MEDS: ondansetron 2 mg/ML SDV 2 mL 4 MG IVP (14:51)
--- NOTE | 2020-04-11 15:47 | PC.NURSE ---
1430: Moaning heard from room, then call light on. Upon enterting room pt stated she was just hurting so bad in her neck and back, she could use a muscle relaxer. Offered pain meds. Upon entering room with pain meds pt stated she was getting sick and needed some nausea meds. Retrieved those and admin Zofran. Admin pain meds. Pt agreed to continue sitting up assisted her in adjusting in chair. 1500: Called to room, pt stated she felt sick. Offered her a degroot, . Discussed Zofran just admin, and pt probably needed to pass gas like she did the last two afternoons. Pt yelled at this nurse that she just need to get in the bed. Assisted pt to bed.
--- NOTE | 2020-04-11 16:12 | PC.NURSE ---
Brigida, pt's sister called , per pt request I told her I am resting, I feel like crap and I love you . No further information provided.
[2020-04-11] MEDS: dexmedetomidine 400 MCG in sodium chloride 0.9% (100 ml) 100 ML 10.2 MCG IV (16:29)
--- NOTE | 2020-04-11 16:32 | PC.NURSE ---
Louis Hummel uses the call light to call this nurse in to check and see if she still has her call light where she can reach it.
[2020-04-11 17:19] LABS: Glucose Point of Care 164 mg/dL (70-110)
--- NOTE | 2020-04-11 19:00 | NUR.SHIFT ---
Report received care assumed. Upon entering patient's room she states, Where are my drugs? Do you have my drugs. My nurse was supposed to bring them to me at 1830. That's when they are due and I am overdue and I'm hurting so bad RN introduced to patient. RN attempted to verify patient Assessment attempted. Patient was not willing to allow RN to perform an assessment without giving her oxycodone. Pain assessment performed. Patient also questioning if the day shift RN ordered her gabapentin. RN informed patient that she would review new orders et plan of care.
--- NOTE | 2020-04-11 19:25 | PC.NURSE ---
Report given to DELORES Hilton.
--- NOTE | 2020-04-11 20:28 | PC.NURSE ---
Addendum entered by Mara Marx RN 04/11/20 20:37: Urine output of 3800 ml. Original Note: shift summary: Pt ready to get out of bed this am. Pt stated she absolutely refuses to wear BiPap any more. She is using heated high fshs93b/100% this am. Pt refuses to eat all but some of the desserts at meal time. She demanded ice cream today, it was provided, she ate less than 50%.of it. She craves fluids. She wants soda constantly. She needed reminded today to slow down as she received Lasix and she was drinking so much it would defeat the purpose of Lasix. She sat up in the chair until about 1500 then yelled to go back to bed. She only needs 1 assist /standby for transfers, mostly someone to watch the cords/lines. She has been irritable, but more aware or surroundings today. Afebrile. Urine output of
--- NOTE | 2020-04-11 21:00 | PC.NURSE ---
Patient very agitated, yelling at RN to Give me more drugs to knock me out. RN educated patient on medications that have been administered et self soothing exercises to decrease anxiety et go to sleep. Patient very agitated et unwilling to be receptive to education at this time. Will allow patient time to calm down et will readdress for a better time to provide educational opportunities.
[2020-04-11] MEDS: gabapentin 400 mg Capsule PO (22:25)
[2020-04-11 22:30] LABS: Glucose Point of Care 135 mg/dL (70-110)
[2020-04-12] VITALS (38 sets, daily range): BP systolic 133–169; BP diastolic 60–91; PULSE 0–97; RESP 13–30; TEMP 36.1–37.1; O2SAT 86–96
[2020-04-12] MEDS: oxyCODONE-APAP 5-325 mg Tablet PO ×5 (00:02→21:15)
[2020-04-12] MEDS: famotidine 20 mg/2 mL INJ IVP ×2 (00:12→13:43)
[2020-04-12] MEDS: dexamethasone 4 mg/mL INJ 6 MG IVP ×2 (00:12→13:42)
[2020-04-12] MEDS: LORazepam 2 mg/mL INJ 1 mL IVP ×6 (00:16→23:03)
[2020-04-12] MEDS: dexmedetomidine 400 MCG in sodium chloride 0.9% (100 ml) 100 ML 17 MCG IV (03:25)
--- NOTE | 2020-04-12 04:00 | PC.NURSE ---
Patient up to chair with 2 person assist. Patient tolerated ambulation well.
[2020-04-12 04:48] LABS: ABG PCO2 37.8 mmHg (35-45); ABG PH Result 7.51 (7.35-7.45); Alveolar-Arterial Oxygen Gradi 41.6 mmHg (5-10); Arterial Blood Gas Hematocrit 44.5 % (37-47); Base Excess ABG 6.9 mmol/L (-2.0-2.0); Blood Gas Allen Test Pos; Blood Gas Operator Identificat HARKR; Blood Gas Sample Site Radial, left; Blood Gas Sample Type Arterial; Carboxyhemoglobin 0.7 %THgb (0.4-20.1); HCO3 ABG 30.3 mmol/L (22-26); HGB O2 Sat 90.9 % (95-100); Ionized Calcium Level - ABG 1.1 mmol/L (1.1-1.4); Methemoglobin 0.6 % (0.4-1.5); Oxygen Saturation ABG 92.1; PO2 ABG 59.8 mmHg (80.0-100.0); Total Hemoglobin 14.5 g/dL (12-16)
[2020-04-12] MEDS: remdesivir 100 MG in sodium chloride 0.9% (100 ml) 100 ML IV (05:38)
[2020-04-12 05:50] LABS: Hematocrit 41.2 % (37.0-47.0); Hemoglobin 13.3 g/dL (11.5-15.3); Lymphocytes # 0.8 10^3/uL (0.8-4.8); Lymphocytes % 8.7 %; Mean Corpuscular HGB Conc 32.3 g/dL (30.0-36.0); Mean Corpuscular Hemoglobin 26.3 pg (28.0-34.0); Mean Corpuscular Volume 81.4 fL (81-99); Monocytes # 0.6 10^3/uL (0.2-0.9); Monocytes % 6.6 %; Neutrophils # 7.41 10^3/uL (1.8-7.7); Neutrophils % 84.1 %; Nucleated Red Blood Cells % 0 %; Platelet Count 402 10^3/cmm (130-400); Red Blood Count 5.06 10^6/uL (4.1-5.3); White Blood Count 8.8 10^3/uL (4.0-10.0)
[2020-04-12 06:14] LABS: Anion Gap 17.9 (5-19); Blood Urea Nitrogen 16 mg/dL (6-20); C Reactive Protein 36.2 mg/L (0.0-4.9); Carbon Dioxide 28 mmol/L (22-29); Chloride 91 mmol/L (98-107); Ferritin 124 ng/mL (15-150); Glomerular Filtration Rate 127.6 mL/min (90-130); Glucose 162 mg/dL (65-115); Magnesium 1.8 mg/dL (1.7-2.3); Osmolality Calculated 281 mOsm/kg (285-295); Potassium 3.9 mmol/L (3.5-5.1); Sodium 133 mmol/L (136-145)
--- NOTE | 2020-04-12 06:16 | PC.NURSE ---
Patient will remove all monitoring devices et oxygen. Patient has been verbally redirected on numerous occasions. Patient has been education on the importance of leaving her heated high flow oxygen on due to her respiratory status. Patient understands the risks but does it to get peoples attention.
[2020-04-12 06:25] LABS: D Dimer 1.44 ug/mIFEU (0-0.59)
[2020-04-12 06:45] LABS: Erythrocyte Sedimentation Rate 44 mm/hr (0-15)
[2020-04-12 07:03] LABS: Oxygen Device HHFNC
[2020-04-12] MEDS: ondansetron 2 mg/ML SDV 2 mL 4 MG IVP ×2 (07:39→21:15)
[2020-04-12 08:19] LABS: Glucose Point of Care 166 mg/dL (70-110)
[2020-04-12] MEDS: donepezil 5 MG Tablet 10 MG PO (09:06)
[2020-04-12] MEDS: cholecalciferol (vitamin D3) 5,000 unit Tablet 5000 UNIT PO (09:06)
[2020-04-12] MEDS: levothyroxine 75 mcg Tablet PO (09:06)
[2020-04-12] MEDS: gabapentin 400 mg Capsule PO ×3 (09:06→20:00)
[2020-04-12] MEDS: lamoTRIgine 100 mg Tablet 200 MG PO (09:07)
[2020-04-12] MEDS: enoxaparin 40 mg/0.4 mL Syringe SUBCUT ×2 (09:07→20:46)
[2020-04-12] MEDS: ropinirole 1 mg Tablet PO ×3 (09:07→20:00)
[2020-04-12] MEDS: ascorbic acid 500 mg Tablet 1000 MG PO ×2 (09:07→17:14)
[2020-04-12] MEDS: FUROsemide 10 mg/mL SDV 4mL 40 MG IVP (09:07)
[2020-04-12] MEDS: memantine 5 mg tablet 10 MG PO ×2 (09:07→17:15)
[2020-04-12] MEDS: levofloxacin-dextrose 5 % 750 MG/150 ML PREMIX 100 MG IV (10:09)
--- NOTE | 2020-04-12 11:33 | PM.PN ---
Subjective Subjective: Interval history: was seen and examined today.She is complaining of difficulty sleeping in the night. She is doing better today her supplemental oxygen has gown down,currently she is needing 6-8ls oxygen via HFNC to maintain optimum saturation. She has good urine output and currently she is Net - 4.7 Ls. Her other Vitals and labs have been reviewed. Medications: Reviewed: Yes Vitals/I&O/Wt Last Vital Signs Temp 98.7 F 04/12/20 08:00 Pulse 76 04/12/20 11:19 Resp 17 04/12/20 11:19 BP 133/89 04/12/20 10:00 Pulse Ox 92 04/12/20 11:19 04/11/20 04/12/20 04/12/20 22:59 06:59 14:59 Intake Total 1629.74 / 3161.927 862.25 / 4024.177 831.79 / 831.79 Output Total 2550 / 5350 950 / 6300 3000 / 3000 Balance -920.26 / -2188.073 -87.75 / -2275.823 -2168.21 / -2168.21 Weight last 48 hrs Weight 135.488 kg Physical Exam Const: COMMON NORMALS: patient oriented x3 HENMT: COMMON NORMALS: normocephalic and atraumatic HEAD & SCALP: normocephalic and atraumatic Resp: OTHER: B/L Clear air entry , good air movement. Cardio: COMMON NORMALS: regular rate, regular rhythm, S1 normal heart sound present, S2 normal heart sound present, No gallops present (Cardio), No murmurs present (Cardio), No rub (Cardio) and Peripheral pulses 2+ throughout RATE: regular rate RHYTHM: regular rhythm HEART SOUNDS: S1 normal heart sound present and S2 normal heart sound present PERIPHERAL PULSES: Peripheral pulses 2+ throughout GI: COMMON NORMALS: Normal to inspection, nondistended, normoactive bowel sounds present, Soft to palpation, non-tender, No hepatosplenomegaly present and no masses AUSCULTATION: Yes normoactive bowel sounds PALPATION: Yes Soft to palpation and Yes No hepatosplenomegaly present RECTAL EXAM: deferred Extremity: COMMON NORMALS: no clubbing, cyanosis or edema and no pedal edema Neuro: COMMON NORMALS: patient oriented x3 Urinary Catheter Management^: Harrison: Cath Placed During This Visit: yes Reason for Continuing Indwelling Catheter: Acute Urinary Retention or Obstruction Urinary Catheter Date of Insertion: 04/09/20 Urinary Catheter Time of Insertion: 00:45 Data : 04/12/20 04:00 04/12/20 04:00 A&P Assessment and plan (1) Acute respiratory failure with hypoxia: Ac Respiratory failure with hypoxia 2/2 to Severe ARDS 2/2 COVID PNA with possible superimposed Bacterial PNA. Pro-calcitonin in am Lactic acid:1.9 Ferritin: CRP: D-dimer:1.10---->1.39--->1.85 chest x-ray:Partial clearing of right lung opacities and left lower lobe opacities ABG:Ph: 7.51,PCO2: 37, PO2: 59.8, FIO2:60 % P/F: 60/0.6 Sputum culture: Blood Culture :NTD Decadron 6 mg daily for 10 days Remdesivir 200 mg IV x1 today - > 100 mg IV daily x 4 days Emperically started on Levaquin 750 mg IV daily S/P 1 Bag Covalasent Plasma. 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
[2020-04-12 11:45] LABS: Glucose Point of Care 176 mg/dL (70-110)
[2020-04-12 12:36] LABS: Glucose Point of Care 134 mg/dL (70-110)
[2020-04-12] MEDS: guaiFENesin 600 mg Tablet 1200 MG PO (13:41)
[2020-04-12] MEDS: morphine 4 mg/mL SDV 1 mL 2 MG IVP (14:10)
--- NOTE | 2020-04-12 16:44 | DCPLANNER ---
Pt still on heated high flow, no d/c in sight. We will monitor and discuss the IM when appropriate.
[2020-04-12 17:22] LABS: Glucose Point of Care 156 mg/dL (70-110)
[2020-04-12] MEDS: trazodone 100 mg Tablet PO (20:00)
[2020-04-12 20:20] LABS: Glucose Point of Care 161 mg/dL (70-110)
[2020-04-12] MEDS: HYDROmorphone 1 mg/mL INJ 1 mL 2 MG IVP (23:03)
[2020-04-13] VITALS (46 sets, daily range): BP systolic 93–154; BP diastolic 46–89; PULSE 68–116; RESP 11–46; TEMP 36.6–36.9; O2SAT 83–98
[2020-04-13] MEDS: dexamethasone 4 mg/mL INJ 6 MG IVP ×2 (00:37→14:00)
[2020-04-13] MEDS: famotidine 20 mg/2 mL INJ IVP ×2 (00:37→14:00)
[2020-04-13] MEDS: guaiFENesin 600 mg Tablet 1200 MG PO ×2 (00:39→14:00)
[2020-04-13] MEDS: HYDROmorphone 1 mg/mL INJ 1 mL 2 MG IVP ×4 (00:48→22:46)
[2020-04-13] MEDS: LORazepam 2 mg/mL INJ 1 mL IVP ×4 (02:49→22:45)
[2020-04-13 03:52] LABS: Basophils % 0.1 %; Eosinophils % 0.1 %; Hematocrit 41.1 % (37.0-47.0); Hemoglobin 13.5 g/dL (11.5-15.3); Lymphocytes # 0.9 10^3/uL (0.8-4.8); Lymphocytes % 12.7 %; Mean Corpuscular HGB Conc 32.8 g/dL (30.0-36.0); Mean Corpuscular Hemoglobin 26.4 pg (28.0-34.0); Mean Corpuscular Volume 80.3 fL (81-99); Monocytes # 0.9 10^3/uL (0.2-0.9); Monocytes % 12.7 %; Neutrophils # 5.07 10^3/uL (1.8-7.7); Neutrophils % 73.1 %; Nucleated Red Blood Cells % 0 %; Platelet Count 83 10^3/cmm (130-400); Red Blood Count 5.12 10^6/uL (4.1-5.3); Red Cell Distribution Width 14.7 % (12.1-15.1); White Blood Count 6.9 10^3/uL (4.0-10.0)
[2020-04-13 04:06] LABS: Anion Gap 16.3 (5-19); Blood Urea Nitrogen 14 mg/dL (6-20); Calcium 8.9 mg/dL (8.5-10.5); Carbon Dioxide 27 mmol/L (22-29); Chloride 93 mmol/L (98-107); Glomerular Filtration Rate 127.6 mL/min (90-130); Glucose 149 mg/dL (65-115); Magnesium 1.9 mg/dL (1.7-2.3); Osmolality Calculated 277 mOsm/kg (285-295); Potassium 4.3 mmol/L (3.5-5.1); Sodium 132 mmol/L (136-145)
[2020-04-13] MEDS: remdesivir 100 MG in sodium chloride 0.9% (100 ml) 100 ML IV (05:36)
[2020-04-13 07:32] LABS: Glucose Point of Care 126 mg/dL (70-110)
--- NOTE | 2020-04-13 08:23 | PC.NURSE ---
All moring charting done after 729 done by this nurse not Kailyn Walsh RN, forgot to change out log in.
--- NOTE | 2020-04-13 08:28 | XRR_ITS ---
PROCEDURE INFORMATION: Exam: XR Chest, 1 View Exam date and time: 04/13/2020 10:20 AM Age: 54 years old Clinical indication: Shortness of breath; Additional info: Pna TECHNIQUE: Imaging protocol: XR of the chest Views: 1 view. COMPARISON: CR XR chest 1V portable [id number] 04/11/2020 3:21 PM FINDINGS: Lungs: Low right lung volumes are seen. Nonspecific interstitial densities are present in the right mid and lower lobe and in the left lower lobe. No consolidation. Pleural spaces: Unremarkable. No pleural effusion. No pneumothorax. Heart/Mediastinum: Unremarkable. No cardiomegaly. Bones/joints: Unremarkable. XR/XR chest 1V portable [id number] IMPRESSION: 1. Interstitial densities bilateral lower lobe 2. Low right lung volume is seen.
--- NOTE | 2020-04-13 08:45 | PC.NURSE ---
Pt in bed when this nurse entered room.. She had been in the chair prior. She stated she was having a hard time breathing. This nurse noted nasal cannula not in place again. Educated pt on her need for oxygen, her O2 sats going low when she removes it, she would feel better if she left it in place. Pt stated she didn't care, it was bothering her. Attempted to re-educate, pt said she did not want to here it. Reminded pt that leaving it and improving was the fastest route to discharge. She allowed this nurse to replace it.
[2020-04-13] MEDS: gabapentin 400 mg Capsule PO ×3 (08:57→21:20)
[2020-04-13] MEDS: ropinirole 1 mg Tablet PO ×3 (08:57→21:21)
[2020-04-13] MEDS: donepezil 5 MG Tablet 10 MG PO (08:57)
[2020-04-13] MEDS: lamoTRIgine 100 mg Tablet 200 MG PO (08:57)
[2020-04-13] MEDS: cholecalciferol (vitamin D3) 5,000 unit Tablet 5000 UNIT PO (08:57)
[2020-04-13] MEDS: memantine 5 mg tablet 10 MG PO ×2 (08:57→17:08)
[2020-04-13] MEDS: levothyroxine 75 mcg Tablet PO (08:58)
[2020-04-13] MEDS: ascorbic acid 500 mg Tablet 1000 MG PO ×2 (08:58→17:08)
[2020-04-13] MEDS: FUROsemide 10 mg/mL SDV 4mL 40 MG IVP (08:58)
[2020-04-13] MEDS: enoxaparin 40 mg/0.4 mL Syringe SUBCUT ×2 (08:58→21:21)
--- NOTE | 2020-04-13 09:25 | PC.NURSE ---
Pt pulled her menjivar catheter out, balloon still inflated. She stated 'the catheter just had to come out. I can't take it anymore She has been irritable this am. She is happy about being in the hospital, said she was going to go home today. [place] her yelling on the phone at her daughter. She keeps taking her oxygen cannula off then getting short of breath.
--- NOTE | 2020-04-13 11:00 | PC.NURSE ---
Pt to shower and shampoo, stand-by assist. Pt now ready to lie down in bed.
[2020-04-13 11:41] LABS: Glucose Point of Care 116 mg/dL (70-110)
[2020-04-13] MEDS: levofloxacin-dextrose 5 % 750 MG/150 ML PREMIX 100 MG IV (12:21)
--- NOTE | 2020-04-13 12:22 | PC.NURSE ---
NOLAN Nettles other delay due to being in CT with other patient.
--- NOTE | 2020-04-13 13:32 | DCPLANNER ---
Pg 2 of IM discussed with Daughter; Chapis via the phone. She is glad to know that information.
[2020-04-13] MEDS: oxyCODONE-APAP 5-325 mg Tablet PO ×2 (14:10→18:48)
[2020-04-13 16:34] LABS: Glucose Point of Care 149 mg/dL (70-110)
--- NOTE | 2020-04-13 17:22 | PC.NURSE ---
Family sent in a large milk shake, burger and xlarge drink from [employer]. Pt ate that for dinner
--- NOTE | 2020-04-13 18:30 | PC.NURSE ---
Patient has removes the B/P cuff as soon as it is put back on this evening.
--- NOTE | 2020-04-13 18:45 | PC.NURSE ---
Received report on patient from Mara ESTRELLA. Assumed care at this time.
--- NOTE | 2020-04-13 19:39 | PC.NURSE ---
Report given to DELORES Velez
--- NOTE | 2020-04-13 19:39 | PC.NURSE ---
Shift summary: Pt's respiratory improved, she is now on 6lpm/high flow NC. The only time she gets short of breath with exertion is when she removes the nasal cannula. Which has has done numerous times today. She has been irritable, impulsive, and tells you she does not want to listen. She pulled out her menjivar, she has not had difficulty urinating afterwards. She has had several loose BMs today. She does not want to clean her own bottom, asks the staff to help her. She has received Oxycodone 2 times and Ativan once this shift. She has had a shower and shampooed her hair. She rested very well and calmed down after that this am.
--- NOTE | 2020-04-13 20:00 | PC.NURSE ---
Patient got herself up to the BSC for bowel movement. Started yelling that she needed help wiping her bottom and then back to bed without difficulty.
[2020-04-13] MEDS: trazodone 100 mg Tablet PO (21:21)
[2020-04-13 21:22] LABS: Glucose Point of Care 146 mg/dL (70-110)
--- NOTE | 2020-04-13 22:07 | PM.PN ---
Subjective Subjective: Interval history: was seen and examined today.She is complaining of difficulty sleeping in the night. She is doing better today her supplemental oxygen has gown down,currently she is needing 6-8ls oxygen via HFNC to maintain optimum saturation. She has good urine output and currently she is Net - 7.2 Ls. Her other Vitals and labs have been reviewed. Medications: Reviewed: Yes Vitals/I&O/Wt Last Vital Signs Temp 98.5 F 04/13/20 20:00 Pulse 78 04/13/20 20:45 Resp 31 H 04/13/20 20:45 BP 110/58 04/13/20 20:45 Pulse Ox 89 L 04/13/20 20:45 04/13/20 04/13/20 04/13/20 06:59 14:59 22:59 Intake Total 400 / 2932.697 1050 / 1050 700 / 1750 Output Total 2000 / 8400 1500 / 1500 Balance -1600 / -5467.303 -450 / -450 700 / 250 Weight last 48 hrs Weight 134.717 kg Weight 135.488 kg Physical Exam Const: COMMON NORMALS: patient oriented x3 HENMT: COMMON NORMALS: normocephalic and atraumatic HEAD & SCALP: normocephalic and atraumatic Resp: OTHER: B/L Clear air entry , good air movement. Cardio: COMMON NORMALS: regular rate, regular rhythm, S1 normal heart sound present, S2 normal heart sound present, No gallops present (Cardio), No murmurs present (Cardio), No rub (Cardio) and Peripheral pulses 2+ throughout RATE: regular rate RHYTHM: regular rhythm HEART SOUNDS: S1 normal heart sound present and S2 normal heart sound present PERIPHERAL PULSES: Peripheral pulses 2+ throughout GI: COMMON NORMALS: Normal to inspection, nondistended, normoactive bowel sounds present, Soft to palpation, non-tender, No hepatosplenomegaly present and no masses AUSCULTATION: Yes normoactive bowel sounds PALPATION: Yes Soft to palpation and Yes No hepatosplenomegaly present RECTAL EXAM: deferred Extremity: COMMON NORMALS: no clubbing, cyanosis or edema and no pedal edema Neuro: COMMON NORMALS: patient oriented x3 Urinary Catheter Management^: Harrison: Cath Placed During This Visit: yes, but has since been removed by the nurse Reason for Continuing Indwelling Catheter: Other Urinary Catheter Date of Insertion: 04/09/20 Urinary Catheter Time of Insertion: 00:45 Date Urinary Catheter Removed: 04/13/20 Time Urinary Catheter Discontinued: 09:25 Data : 04/13/20 03:12 04/14/20 04:40 A&P Assessment and plan (1) Acute respiratory failure with hypoxia: Ac Respiratory failure with hypoxia 2/2 to Severe ARDS 2/2 COVID PNA with possible superimposed Bacterial PNA. Pro-calcitonin in am Lactic acid:1.9 Ferritin: CRP: D-dimer:1.10---->1.39--->1.85 -->1.44 chest x-ray:Partial clearing of right lung opacities and left lower lobe opacities ABG:Ph: 7.51,PCO2: 37, PO2: 59.8, FIO2:60 % P/F: 60/0.6 Sputum culture: Blood Culture :NTD Decadron 6 mg daily for 10 days Remdesivir 200 mg IV x1 today - > 100 mg IV daily x 4 days ( Completed 5 Day Course ) Emperically started on Levaquin 750 mg IV daily S/P 1 Bag Covalasent Plasma. Initially on Lasix 40 mg I.V Daily now on lasix 40 mg po daily Nebs Acorbic acid Zinc Status: Acute (2) ARDS (adult respiratory distress syndrome): Status: Acute (3) Pneumonia due to COVID-19 virus: Status: Acute (4) Acid reflux: Status: Acute (5) Controlled diabetes mellitus: Status: Acute (6) DENILSON (generalized anxiety disorder): Status: Chronic (7) Thrombocytopenia: Status: Acute Additional A&P Information DVT PPX: Lovenox 40 mg sc Q12 H Daily Code status :Full code Disposition :Home Attestations Medical Necessity Statement*: Patient needs to be in hospital for the management of r/f 2/2 to covid pna Coding Level of Care Code Acute Link Knitting Machine Operator for [facility] Fwd Exam Detailed Diagnoses Acute respiratory failure with hypoxia J96.01 ARDS (adult respiratory distress syndrome) J80 Pneumonia due to COVID-19 virus U07.1; J12.89 Acid reflux K21.9 Controlled diabetes mellitus E11.9 DENILSON (generalized anxiety disorder) F41.1 Thrombocytopenia D69.6
[2020-04-14] VITALS (53 sets, daily range): BP systolic 104–154; BP diastolic 54–78; PULSE 55–101; RESP 14–33; TEMP 36.6–36.8; O2SAT 82–97; BMI 51.0
[2020-04-14] MEDS: dexamethasone 4 mg/mL INJ 6 MG IVP ×2 (01:15→12:34)
[2020-04-14] MEDS: famotidine 20 mg/2 mL INJ IVP ×2 (01:15→12:34)
[2020-04-14] MEDS: guaiFENesin 600 mg Tablet 1200 MG PO ×2 (01:15→12:34)
[2020-04-14] MEDS: oxyCODONE-APAP 5-325 mg Tablet PO ×3 (04:58→14:37)
[2020-04-14] MEDS: LORazepam 2 mg/mL INJ 1 mL IVP (04:58)
[2020-04-14 05:37] LABS: Blood Urea Nitrogen 12 mg/dL (6-20); Calcium 8.9 mg/dL (8.5-10.5); Carbon Dioxide 25 mmol/L (22-29); Chloride 96 mmol/L (98-107); Glomerular Filtration Rate 103.4 mL/min (90-130); Glucose 130 mg/dL (65-115); Magnesium 2.1 mg/dL (1.7-2.3); Osmolality Calculated 282 mOsm/kg (285-295); Sodium 135 mmol/L (136-145)
[2020-04-14 05:45] LABS: Anion Gap 18.1 (5-19); Potassium 4.1 mmol/L (3.5-5.1)
--- NOTE | 2020-04-14 08:00 | PC.NURSE ---
Pt lying in bed this am. Bm noted on her bottom, she stated she as cleaned it and it is fine. Pt much more agreeable to getting out of bed to chair this am. Stand by assist. she is conversing more pleasantly this am. We discussed the paln for the day: sitting up it a chair most of the day, she agreed, showering offered, pt declined, Pain and anxiety medication discussed.
[2020-04-14 08:24] LABS: Glucose Point of Care 153 mg/dL (70-110)
[2020-04-14] MEDS: lamoTRIgine 100 mg Tablet 200 MG PO (08:58)
[2020-04-14] MEDS: gabapentin 400 mg Capsule PO ×2 (08:58→14:37)
[2020-04-14] MEDS: ropinirole 1 mg Tablet PO ×2 (08:58→14:37)
[2020-04-14] MEDS: FUROsemide 40 mg Tablet PO (08:58)
[2020-04-14] MEDS: levothyroxine 75 mcg Tablet PO (08:59)
[2020-04-14] MEDS: memantine 5 mg tablet 10 MG PO (08:59)
[2020-04-14] MEDS: ascorbic acid 500 mg Tablet 1000 MG PO (08:59)
[2020-04-14] MEDS: donepezil 5 MG Tablet 10 MG PO (08:59)
[2020-04-14] MEDS: enoxaparin 40 mg/0.4 mL Syringe SUBCUT (08:59)
[2020-04-14] MEDS: cholecalciferol (vitamin D3) 5,000 unit Tablet 5000 UNIT PO (08:59)
--- NOTE | 2020-04-14 09:30 | PC.NURSE ---
Pt back in the bed. She stated she did not care if sitting in the chair was better for her respiratory status, she wanted to lie down.
--- NOTE | 2020-04-14 10:16 | PC.NURSE ---
Pt now using her cell phone to call nurses station in addition to yelling out and the call light.
[2020-04-14 10:24] LABS: Basophils % 0.1 %; Eosinophils % 0.2 %; Hematocrit 43.2 % (37.0-47.0); Hemoglobin 14.1 g/dL (11.5-15.3); Lymphocytes % 10.9 %; Mean Corpuscular HGB Conc 32.6 g/dL (30.0-36.0); Mean Corpuscular Hemoglobin 26.5 pg (28.0-34.0); Mean Corpuscular Volume 81.1 fL (81-99); Monocytes # 0.6 10^3/uL (0.2-0.9); Monocytes % 6.4 %; Neutrophils # 7.08 10^3/uL (1.8-7.7); Nucleated Red Blood Cells % 0 %; Red Blood Count 5.33 10^6/uL (4.1-5.3); Red Cell Distribution Width 15.2 % (12.1-15.1); White Blood Count 8.9 10^3/uL (4.0-10.0)
[2020-04-14] MEDS: LORazepam 2 mg Tablet PO ×2 (10:28→14:37)
[2020-04-14] MEDS: levofloxacin-dextrose 5 % 750 MG/150 ML PREMIX 100 MG IV (10:28)
[2020-04-14 11:01] LABS: Platelet Count 464 10^3/cmm (130-400)
[2020-04-14 11:02] LABS: Slide Review Slide Review Perform
--- NOTE | 2020-04-14 14:35 | PC.NURSE ---
Pt on phone to her medical supply company trying to arrange oxygen for home use.
--- NOTE | 2020-04-14 14:53 | PC.NURSE ---
Addendum entered by Mara Marx RN 04/14/20 18:58: Call hospital bushing press operator Original Note: This nurse heard pt all the hospital bushing press operator asking to be put through to the Doctor.
--- NOTE | 2020-04-14 15:00 | PC.NURSE ---
Pt removed her Iv cath. She has packed up her belongings. Nasal cannula removed. She states she has a ride waiting and she is ready to leave. Dr Duglas melara.
--- NOTE | 2020-04-14 15:20 | PC.NURSE ---
Pt agreed to stay and wait for her home O2. Dr Ardon notified.
--- NOTE | 2020-04-14 16:15 | PC.NURSE ---
HOme O2 here. Dr Ardon notified.
--- NOTE | 2020-04-14 16:30 | PC.NURSE ---
Discharge instructions provided to pt. Discussed follow-up appt to be made by pt, new prescriptions, discontinued medications and current medications, Covid precautions, quarantining for 4 more days. Pt verbalized understanding. Care notes for [facility] care provdied, Pt declined to go over them at this time. New prescription mediation information provided, pt declined to go over those too, at this time. Medications will be ready for nut picker at [facility] pharmacy. HOme O2 tank set up for pt. To exit via W/C. All belongings with pt. Pt discharged
--- NOTE | 2020-04-14 16:41 | P.DS_ITS ---
Discharge Providers Date of Admission: 04/09/20 00:29 Date of Discharge: April 14, 2020 Attending Provider at Admission: Timothy Casillas Attending Provider at Discharge: Maria Eugenia Ardon MD Primary Care Provider: Lida Santamaria DO Diagnoses at Discharge Discharge Diagnosis (1) Acute respiratory failure with hypoxia: Status: Acute (2) ARDS (adult respiratory distress syndrome): Status: Acute (3) Pneumonia due to COVID-19 virus: Status: Acute (4) Acid reflux: Status: Acute (5) Controlled diabetes mellitus: Status: Acute (6) DENILSON (generalized anxiety disorder): Status: Chronic Reason for Visit Reason for Visit: SOB Hospital Course Hospital Course Shannan Hummel is a 54 year old female, morbidly obese, with sleep apnea Who presented to the ER on April 09, 2020 with chief complaints of shortness of breath and was noted to be severely hypoxemic with acute respiratory distress. Her O2 sats were noted to be in the 60s upon arrival, chest x-ray done in the ER showed bilateral infiltrates and she eventually tested positive for Covid pneumonia. She was diagnosed with Covid ARDS, required BiPAP initially upon arrival, changed to high flow nasal cannula during the admission and eventually on the day of discharge came down to 2 L/min on nasal cannula. Based on serial chest x-rays her bilateral infiltrates were noted to be improving. She received treatment with IV steroids, changed to prednisone taper over the next 7 to 10 days, received prophylactic anticoagulation with Lovenox 40 mg every 12 hours, discharged on 5 mg p.o. twice daily of Eliquis over the next 14 days. Risks and benefits of the latter discussed with the patient. She also received diuresis with Lasix 40 mg p.o. daily during the course of admission, at time of discharge she is noted to be euvolemic. Antibiotic coverage was provided with levofloxacin, discontinued on discharge as patient has overall recovered well. She also received a 5-day course of remdesivir. Yesterday patient was on high flow nasal cannula at 7 to 8 L/min, titrated down to 2 L/min this morning with significant improvement. I did recommend to the patient to stay an additional 24 hours in the hospital so that she can be closely monitored for sustained improvement, however patient declined to stay insisting on returning home and stated she would sign out AMA. Given overall clinical improvement, discharge has been placed, however patient is counseled to check her oxygen saturation at home every 6-8 hours and return to the ER in case of any signs of worsening. Patient has 2 daughters at home will be residing with her. They tried to convince her to stay as well, however patient states she has made up her mind and will be returning home. Home O2 evaluation was performed, she qualified for 2 L/min of supplemental oxygen at rest, increased to 3 L/min with exertion. Her isolation for Covid is to continue for 10 days from date of positive test that is until April 18, 2020. Physical Exam Narrative: EXAM NARRATIVE: GEN: Awake, alert and oriented, no acute distress CVS: S1S2 N RS: CTA B/L all areas Abd: Soft, nt/nd , bs+ INSECTICIDE EXPERT: no focal motor neuro deficits Urinary Catheter Management^: Harrison: Cath Placed During This Visit: yes, but has since been removed by the nurse Reason for Continuing Indwelling Catheter: Other Urinary Catheter Date of Insertion: 04/09/20 Urinary Catheter Time of Insertion: 00:45 Date Urinary Catheter Removed: 04/13/20 Time Urinary Catheter Discontinued: 09:25 Discharge Data Data Completed and Pending: Completed Studies During Hospitalization Category Date Time Status XR chest 1V shana ble [id number] Routine Exams 04/11/20 12:52 Completed XR chest 1V shana ble [id number] Routine Exams 04/13/20 08:28 Completed XR chest 1V shana ble [id number] Stat Exams 04/08/20 22:46 Completed Pending at discharge Category Date Time Status Magnesium AM LABS Lab 04/15/20 04:00 Ordered Sputum Culture Ro utine Lab 04/11/20 13:13 Uncollected Labs from last 24 hours 04/14/20 04/14/20 04/14/20 10:05 08:16 04:40 WBC 8.9 Corrected WBC RBC 5.33 H Hgb 14.1 Hct 43.2 MCV 81.1 MCH 26.5 L MCHC 32.6 RDW 15.2 H Plt Count 464 H MPV 10.0 Gran % Neut % (Auto) 80.0 Lymph % (Auto) 10.9 Josephine % (Auto) 6.4 Eos % (Auto) 0.2 Baso % (Auto) 0.1 Neut # (Auto) 7.08 Lymph # (Auto) 1.0 Josephine # (Auto) 0.6 Eos # (Auto) 0.0 Baso # (Auto) 0.0 Absolute Gran (aut o) Nucleated RBC % (a uto) 0 Nucleated RBCs # 0.0 Sodium 135 L Potassium 4.1 Chloride 96 L Carbon Dioxide 25 Anion Gap 18.1 BUN 12 Creatinine 0.6 GFR Calculation 103.4 Glucose 130 H POC Glucose 153 H Calculated Osmolal ity 282 L Calcium 8.9 Magnesium 2.1 04/14/20 04/13/20 04:40 21:18 WBC Cancelled Corrected WBC Cancelled RBC Cancelled Hgb Cancelled Hct Cancelled MCV Cancelled MCH Cancelled MCHC Cancelled RDW Cancelled Plt Count Cancelled MPV Cancelled Gran % Cancelled Neut % (Auto) Cancelled Lymph % (Auto) Cancelled Josephine % (Auto) Cancelled Eos % (Auto) Cancelled Baso % (Auto) Cancelled Neut # (Auto) Cancelled Lymph # (Auto) Cancelled Josephine # (Auto) Cancelled Eos # (Auto) Cancelled Baso # (Auto) Cancelled Absolute Gran (aut o) Cancelled Nucleated RBC % (a uto) Cancelled Nucleated RBCs # Cancelled Sodium Potassium Chloride Carbon Dioxide Anion Gap BUN Creatinine GFR Calculation Glucose POC Glucose 146 H Calculated Osmolal ity Calcium Magnesium Vitals: Last Vital Signs Temp 98.2 F 04/14/20 12:25 Pulse 90 04/14/20 12:25 Resp 22 H 04/14/20 16:07 BP 106/54 04/14/20 12:25 Pulse Ox 93 04/14/20 16:07 Discharge Plan Discharge Patient Disposition: Home Condition: Stable Prescriptions: New Vitamin C 500 mg Tablet 1,000 mg PO BID Qty: 0 RF: 0 memantine 5 mg Tablet 10 mg PO BID Qty: 0 RF: 0 prednisone 10 mg tablets,dose pack See Rx Instructions .ROUTE .COMPLEX Qty: 21 RF: 0 Eliquis 5 mg tablet 5 mg PO BID 14 Days Qty: 28 RF: 0 Continued pseudoephedrine HCl 60 mg tablet 30 mg PO Q4H RF: 0 gabapentin 400 mg capsule 400 - 800 mg PO TID RF: 0 omeprazole 20 mg capsule,delayed release(DR/EC) 20 mg PO DAILY Qty: 90 RF: 0 albuterol sulfate [Ventolin HFA] 90 mcg/actuation HFA aerosol inhaler 2 puff INHALATION Q6H PRN (Reason: shortness of breath or wheezing) Qty: 8.5 RF: 0 ondansetron 4 mg tablet,disintegrating 4 mg PO Q6H Qty: 90 RF: 0 Mucinex 1,200 mg tablet extended release 12hr 1,200 mg PO Q12H Qty: 20 RF: 0 donepezil [Aricept] 10 mg tablet 10 mg PO DAILY Qty: 90 RF: 0 paroxetine HCl [Paxil] 40 mg tablet 40 mg PO DAILY Qty: 90 RF: 0 amlodipine 5 mg tablet 5 mg PO DAILY Qty: 30 RF: 1 trazodone 100 mg tablet 100 mg PO DAILY Qty: 90 RF: 0 hydrochlorothiazide 25 mg tablet 25 mg PO DAILY Qty: 30 RF: 0 levothyroxine 75 mcg capsule 75 mcg PO DAILY Qty: 30 RF: 0 Rexulti 0.5 mg tablet 0.5 mg PO DAILY Qty: 30 RF: 0 metformin 500 mg tablet 500 mg PO BID Qty: 60 RF: 0 ropinirole 1 mg tablet 1 mg PO TID Qty: 90 RF: 0 lamotrigine 200 mg tablet 200 mg PO DAILY Qty: 14 RF: 0 cyclobenzaprine 10 mg tablet 10 mg PO TID PRN (Reason: Pain) RF: 0 oxycodone-acetaminophen 10-325 mg tablet 1 tab PO QID PRN (Reason: Pain) RF: 0 fentanyl 50 mcg/hr patch 72 hour 1 patch transdermal Q72H RF: 0 pravastatin 40 mg tablet 40 mg PO DAILY RF: 0 clonazepam 0.5 mg Tablet See Rx Instructions .ROUTE .COMPLEX RF: 0 Discontinued losartan 100 mg tablet 100 mg PO DAILY RF: 0 Discharge Orders: Discharge Order (Routine); Ordered 04/14/20 Ordered By: Maria Eugenia Ardon Other Ambulatory Orders: DME: Oxygen (Order) Location: None Selected Ordered By: Maria Eugenia Ardon DME: Oxygen (Order) Location: None Selected Ordered By: Maria Eugenia Ardon Referrals: [facility] [Outside] Lida Santamaria DO [Primary Care Provider] - 4-7 days (Post Covid follow up ) Discharge Diet: Usual diet Discharge Activity: Resume usual activity and Oxygen as instructed Activity Restrictions/Additional Instructions: Continue isolation precautions until 10 days from your positive test i.e until 2/12/21 Discharge Attestations Time Spent in Discharge Care*: greater than 30 min Specific Discharge Activities: educating patient, educating and/or supporting family/caregiver and discussing with telephonic case manager/social workers/dc planners Status at Discharge: Cognitive status at discharge: cognitively intact , Behavioral status at discharge: cooperative, can be uncooperative and independent in ADL's , Functional status at discharge: independent ambulation Overall status at discharge: patient is progressing back to baseline Quality Metrics Clinical Quality Measures During this hospital stay, did patient experience: None Coding Level of Care Code Acute Intervention Analyst for Robin Fwd Diagnoses Acute respiratory failure with hypoxia J96.01 ARDS (adult respiratory distress syndrome) J80 Pneumonia due to COVID-19 virus U07.1; J12.89 Acid reflux K21.9 Controlled diabetes mellitus E11.9 DENILSON (generalized anxiety disorder) F41.1
[2020-04-14 22:08] LABS: Glucose Point of Care 147 mg/dL (70-110)
== END 2020-04-14 16:30 | disposition home or self-care (01) | DRG 177 ==
LOC: ER 04-09 00:28 → MS 2A 04-09 00:56
PROVIDERS: Internal Medicine; Admitting Provider Internal Medicine; Emergency Provider Emergency Medicine; PCP Family Medicine; Visit Provider Student in an Organized Health Care Education/Training Program
DX: U07.1 COVID-19 (principal); J12.82 Pneumonia due to coronavirus disease 2019; J96.01 Acute respiratory failure with hypoxia; J80 Acute respiratory distress syndrome; Z68.43 Body mass index [BMI] 50.0-59.9, adult; E66.01 Morbid (severe) obesity due to excess calories; G56.02 Carpal tunnel syndrome, left upper limb; K21.9 Gastro-esophageal reflux disease without esophagitis; E11.9 Type 2 diabetes mellitus without complications; M50.30 Other cervical disc degeneration, unspecified cervical region; F32.9 Major depressive disorder, single episode, unspecified; I10 Essential (primary) hypertension; F41.1 Generalized anxiety disorder; E03.9 Hypothyroidism, unspecified; Z96.651 Presence of right artificial knee joint; D69.6 Thrombocytopenia, unspecified; Z79.891 Long term (current) use of opiate analgesic; Z79.84 Long term (current) use of oral hypoglycemic drugs
CPT/HCPCS: 12345; 36415; 36416; 36430; 36600; 71045; 80048; 80051; 80053; 82330; 82728; 82803; 82805; 82962; 83605; 83735; 83880; 85025; 85378; 85384; 85610; 85651; 86140; 86900; 86927; 87040; 87426; 93005; 94640; 94660; 94664; 96372; 99283; J1100; J1170; J1650; J1815; J1940; J1956; J2060; J2270; J2405; J3490; P9017

== ENCOUNTER 2020-07-21 14:53 | Outpatient (CLI) | payer BC, MEDICARE, MEDICAID, SELFPAY ==
--- NOTE | 2020-07-21 15:04 | XR_ITS ---
WS: [id number] LATERAL LUMBAR SPINE: 3 view. Lateral radiographs are performed in upright neutral, flexion and extension to the patient's toleranc e. HISTORY: LOW BACK PAIN COMPARISON: None available. Increase in the lumbar lordosis. L4 anterolisthesis by 8.3 mm on neutral. During flexion L4 anterolis thesis by 8.6 and extension 5.3 mm. The remaining vertebral bodies are normally aligned. Mild facet joint arthritis throughout the lumbar spine. Most significant facet arthritis at L4-5 and L5-S1. No fractures. XR/XR lumbar spine f/e only 19098 IMPRESSION: 1. Grade 1 anterolisthesis of L4 with mild instability during extension. 2. Facet joint arthritis most significant at L4-5 and L5-S1.
--- NOTE | 2020-07-21 15:15 | MR_ITS ---
WS: [id number] MRI LUMBAR SPINE NONCONTRAST HISTORY: LOW BACK PAIN COMPARISON: None available. TECHNIQUE: Sagittal and axial multisequence imaging is submitted. Study is degraded by motion artifact. Straightening of the normal cervical lordosis and mild increase in thoracic kyphosis. Disc bulging and protrusions at multiple levels in the thoracic spine with no severe compression upon the cord. Mild RIGHT curvature lumbar spine. L4 anterolisthesis by 3 mm. No fracture or marrow edema. Mild disc desiccation throughout. Conus terminates normally at L1-2 disc level. L1-L2: Normal. L2-L3: Normal. L3-L4: Annular disc bulging and osteophytic ridging with moderate bilateral facet arthritis. No signi ficant stenosis. Motion is degrading the image quality to evaluate for small protrusions. L4-L5: Diffuse moderate annular disc bulging and osteophytic ridging. Moderate ligamentum flavum arth ritis and facet arthritis. Mild central and bilateral subarticular recess and foraminal stenosis. L5-S1: Diffuse annular disc bulging. Shallow central disc protrusion. Motion is degrading evaluation for additional smaller disc protrusion. Mild central and subarticular and foraminal stenosis. Disc ab uts the L5 nerve roots bilaterally. MR/MR lumbar spine wo con* [id number] IMPRESSION: 1. Quality of this examination is degraded by motion artifact. 2. Mild central, subarticular and foraminal stenosis at L5-S1. Disc is abuttin g but not displacing the L5 nerve roots. 3. L4 anterolisthesis by 3 mm. 4. Mild central, bilateral subarticular recess and foraminal stenosis at L4-5 due to combination of the anterolisthesis of L4, disc and facet disease.
== END 2020-07-21 14:54 | disposition home or self-care (01) ==
PROVIDERS: PCP Family Medicine; Visit Provider Anesthesiology Pain Medicine
DX: M54.5 Low back pain (principal); M48.061 Spinal stenosis, lumbar region without neurogenic claudication; M48.07 Spinal stenosis, lumbosacral region; M51.36 Other intervertebral disc degeneration, lumbar region
CPT/HCPCS: 72120; 72148

== ENCOUNTER → 2020-08-19 14:46 | Outpatient (BNVA) | payer MEDICARE, MEDICAID, SELFPAY | PROVIDERS: PCP Family Medicine; Visit Provider Family Medicine | DX: E11.9 Type 2 diabetes mellitus without complications (principal); E78.5 Hyperlipidemia, unspecified; E03.9 Hypothyroidism, unspecified | CPT/HCPCS: 82043; 83036 ==

== ENCOUNTER → 2020-08-20 14:54 | Outpatient (BNVA) | payer MEDICARE, MEDICAID, SELFPAY | PROVIDERS: PCP Family Medicine; Visit Provider Family Medicine | DX: E78.5 Hyperlipidemia, unspecified (principal); E03.9 Hypothyroidism, unspecified; E11.9 Type 2 diabetes mellitus without complications | CPT/HCPCS: 80061; 84443; 85025 ==

== ENCOUNTER → 2020-11-04 08:58 | Outpatient (BNVA) | payer MEDICARE, MEDICAID, SELFPAY | PROVIDERS: PCP Family Medicine; Visit Provider Orthopaedic Surgery | DX: Z01.812 Encounter for preprocedural laboratory examination (principal); Z20.822 Contact with and (suspected) exposure to COVID-19 | CPT/HCPCS: 87635 ==

== ENCOUNTER 2020-11-06 08:10 | Day surgery (SDC) | payer MEDICARE, MEDICAID, SELFPAY ==
[2020-11-05 10:31] VITALS: BMI 44.4
--- NOTE | 2020-11-06 08:38 | ANES.PREANE2 ---
Pre-Anesthetic Assessment Pre-Anesthetic Assessment: Height/Weight: Height 1.63 m Weight 117.48 kg Preop Diagnosis: Carpal tunnel syndrome Left Proposed Procedure: Operation Date: 11/06/20 09:25 Proposed Procedures p left Carpal Tunnel Release [id number] g56.02(Left) - Enmanuel Arreaga MD Familial anesthetic complications: PONV Was Beta Mook taken within 24 hours: N/A Was Clonidine taken within 24 hours: N/A Last intake: Intake Last Liquid Date 11/05/20 Last Liquid Time 23:00 Last Solid Date 11/05/20 Last Solid Time 21:00 Social: Social History: No alcohol and No tobacco Exam: Pre-Anes Outpt Exam: alert, oriented x 3, clear to auscultation bilaterally and regular rate & rhythm Airway: Cervical ROM: WNL MP: 4 Dentition: Full and Other (missing) Pulmonary: Pulmonary: Sleep apnea GI: GI: GERD Metabolic: Metabolic: DM, Morbid obesity and Thyroid Neuropsych: Neuropsych: Anxiety Anesthetic Plan: ASA status: 3 Anesthesia: MAC and Regional (specify below) (rhiannon block) Risk of > 500 ml blood loss (7ml/kg in children): No PFSH Anesthesia PFSH: Medical History Carpal tunnel syndrome of left wrist Chronic GERD Controlled diabetes mellitus DDD (degenerative disc disease), cervical Depression Essential (primary) hypertension DENILSON (generalized anxiety disorder) Hypercapnic respiratory failure Hypothyroidism Leukocytosis Surgical History H/O section H/O craniotomy H/O total knee replacement RIGHT History of ankle surgery History of cholecystectomy History of colonoscopy (~2018) Family History Father Stroke Mother Cancer Social History Smoking and tobacco status: never smoked Alcohol intake: never Female Reproductive History: Date of last menstrual period: 01/13/05 Data Anesthesia Cardiac Studies: No Data to Display
[2020-11-06 08:40] VITALS: BP 111/59; PULSE 78; RESP 18; TEMP 36.5; O2SAT 95
[2020-11-06] MEDS: sodium chloride 0.9% 1,000 ML 30 ML IV (08:43)
[2020-11-06 08:44] LABS: Glucose Point of Care 111 mg/dL (70-110)
--- NOTE | 2020-11-06 09:07 | P.HP_ITS ---
Same Day Surgery H&P Indication for Procedure/HPI DATE OF PROCEDURE: November 06, 2020 CHIEF COMPLAINT/INDICATIONFOR SURGICAL PROCEDURE: Left carpal tunnel syndrome. Here for left carpal tunnel PREOP DIAGNOSIS: Carpal tunnel syndrome Left PLANNED PROCEDRUE: Operation Date: 11/06/20 09:25 Proposed Procedures p left Carpal Tunnel Release [id number] g56.02(Left) - Enmanuel Arreaga MD Medications/Allergies* Home Medications Medication Instructions Recorded Confirmed Type gabapentin 400 mg capsule 400 - 800 mg PO TID 03/09/19 11/06/20 History oxycodone-acetaminophen 1 tab PO QID PRN 01/08/20 11/06/20 History fentanyl 1 patch TRANSDERMAL Q72H 04/09/20 11/05/20 History Allergies/Adverse Reactions Allergy/AdvReac Type Severity Reaction Status Date / Time No Known Allergies Allergy Verified 11/06/20 08:25 Current Medications: Generic Name Dose Route Start Last Admin Trade Name Freq PRN Reason Stop Dose Admin Sodium Chloride 1,000 mls @ 30 mls/hr 11/06/20 08:30 11/06/20 08:43 Sodium Chloride 0.9% IV 11/07/20 08:29 30 mls/hr .Q24H RUFINO Administration Pertinent History/Comorbid Conditions* Medical History (Updated 10/03/20 @ 09:28 by Lida Santamaria DO) Carpal tunnel syndrome of left wrist Chronic GERD Controlled diabetes mellitus DDD (degenerative disc disease), cervical Depression Essential (primary) hypertension DENILSON (generalized anxiety disorder) Hypercapnic respiratory failure Hypothyroidism Leukocytosis Surgical History (Updated 10/03/19 @ 15:50 by Lida Santamaria DO) H/O section H/O craniotomy H/O total knee replacement RIGHT History of ankle surgery History of cholecystectomy History of colonoscopy (~2017) Family History (Updated 03/09/19 @ 14:05 by Rhina Muniz LPN) Cancer Mother Stroke Father Social History Smoking and tobacco status: never smoked Alcohol intake: never Pertinent Exam Findings alert, oriented x 3, clear to auscultation bilaterally and regular rate & rhythm Recommendations Surgery/Procedure today Coding Level of Care Code Acute Traffic Incident Management Manager for Robin Carlson
--- NOTE | 2020-11-06 09:58 | PM.OP ---
Operative Report Date of procedure: November 06, 2020 Pre-op Diagnosis: Carpal tunnel syndrome Left Post-op diagnosis: same Post-op Findings: Same Procedure Done: Left carpal tunnel release Pathology: none sent Surgeon: Enmanuel Arreaga Anesthesia: Nerve Block (Faiza block) Estimated blood loss (mL): 0 Tourniquet time (min): 20 Findings: No masses or space-occupying lesions were seen in the carpal tunnel Procedure: Patient was taken to the operating room and anesthesia provided by the anesthesia service. She was prepped and draped with the arm exposed. A timeout was performed. A 3 cm long incision was made in line with the fourth ray from the distal edge of the carpal tunnel extending proximally. The subcutaneous fat and palmar fascia was divided with a scalpel blade. Under loupe magnification the ulnar neurovascular bundle was identified distally. A hemostat could be passed under the transverse carpal ligament allowing the distal 25% to be divided. A slotted guide was then passed beneath the transverse carpal ligament and the middle 50% divided. Blunt scissors were then passed over the guide freeing the proximal ligament. The tourniquet was deflated. Hemostasis provided with electrocautery. Wound edges were infiltrated with 10 cc of a half percent Marcaine solution. Skin edges were reapproximated with 3-0 Prolene. Sterile dressings were applied. The patient was taken to the recovery room in stable condition
[2020-11-06 09:59] VITALS: BP 102/69; PULSE 79; RESP 17; TEMP 36.8; O2SAT 94
[2020-11-06 10:00] VITALS: BP 109/69; PULSE 81; RESP 14; O2SAT 94
--- NOTE | 2020-11-06 10:01 | P.PCN_ITS ---
PACU note PACU note: VSS, Good respiratory effort, report to BARREL RIBS SOLDERER Post-Anesthesia Exam: awake
--- NOTE | 2020-11-06 10:01 | PM.PACU ---
PACU note PACU note: VSS, Good respiratory effort, report to TRANSITION NURSE Post-Anesthesia Exam: awake
[2020-11-06 10:05] VITALS: BP 125/67; PULSE 80; RESP 18; TEMP 37; O2SAT 93
[2020-11-06 10:14] VITALS: BP 113/57; PULSE 76; RESP 15; TEMP 36.9; O2SAT 96
--- NOTE | 2020-11-06 19:06 | ANE.PACU2 ---
Inpatient post-anesthesia follow up: Airway intact: Yes Vital signs: Temperature 98.4 F Pulse Rate 76 Respiratory Rate 15 Blood Pressure 113/57 Pulse Oximetry 96 Oxygen Delivery Me thod Room Air Oxygen Flow Rate Fraction of Inspir ed Oxygen Hydration adequate: Yes Nausea and vomiting: No Pain level: 2 Mental status: Baseline
== END 2020-11-06 10:49 | disposition home or self-care (01) ==
PROVIDERS: PCP Family Medicine; Visit Provider Orthopaedic Surgery
PROC: (CPT 64721; principal; 2020-11-06 09:15)
DX: G56.02 Carpal tunnel syndrome, left upper limb (principal); K21.9 Gastro-esophageal reflux disease without esophagitis; E11.9 Type 2 diabetes mellitus without complications; M50.30 Other cervical disc degeneration, unspecified cervical region; I10 Essential (primary) hypertension; E03.9 Hypothyroidism, unspecified; G47.30 Sleep apnea, unspecified; F41.9 Anxiety disorder, unspecified
CPT/HCPCS: 64721; 36416; 82962; 96365; J0690; J3490; J7030

== ENCOUNTER 2020-11-07 15:58 | Emergency (ER) | payer MEDICARE, MEDICAID, SELFPAY ==
[2020-11-07 17:03] VITALS: BP 152/77; PULSE 89; RESP 18; TEMP 36.9; O2SAT 98; BMI 44.4
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
[2020-11-07] MEDS: bacitracin ointment Pkt 1 EACH TOPICAL (17:47)
[2020-11-07] MEDS: amoxicillin-clav 875-125 mg Tablet 1 TAB PO (17:47)
[2020-11-07] MEDS: tetanus-dipt-pertussis 0.5 mL SDV IM (18:11)
== END 2020-11-07 18:31 | disposition home or self-care (01) ==
PROVIDERS: Emergency Provider Nurse Practitioner Family; PCP Family Medicine
DX: T23.222A Burn of second degree of single left finger (nail) except thumb, initial encounter (principal); X13.1XXA Other contact with steam and other hot vapors, initial encounter; E11.9 Type 2 diabetes mellitus without complications; I10 Essential (primary) hypertension; Z79.84 Long term (current) use of oral hypoglycemic drugs; Z23 Encounter for immunization
CPT/HCPCS: 90471; 90715; 99283

== ENCOUNTER → 2020-12-22 12:34 | Outpatient (BNVA) | payer MEDICARE, MEDICAID, SELFPAY | PROVIDERS: PCP Family Medicine; Visit Provider Family Medicine | DX: I10 Essential (primary) hypertension (principal); F98.8 Other specified behavioral and emotional disorders with onset usually occurring in childhood and adolescence | CPT/HCPCS: 80053 ==

== ENCOUNTER → 2021-02-16 15:09 | Outpatient (BNVA) | payer MEDICARE, MEDICAID, SELFPAY | PROVIDERS: PCP Family Medicine; Visit Provider Family Medicine | DX: E11.9 Type 2 diabetes mellitus without complications (principal); F98.8 Other specified behavioral and emotional disorders with onset usually occurring in childhood and adolescence; E03.9 Hypothyroidism, unspecified; F41.1 Generalized anxiety disorder; I10 Essential (primary) hypertension; R41.3 Other amnesia; G25.81 Restless legs syndrome; K21.9 Gastro-esophageal reflux disease without esophagitis | CPT/HCPCS: 80053; 83036; 84443; 85025 ==

== ENCOUNTER → 2021-05-05 11:42 | Outpatient (BNVA) | payer MEDICARE, MEDICAID, SELFPAY | PROVIDERS: PCP Family Medicine; Visit Provider Psychiatry & Neurology Psychiatry | DX: F41.1 Generalized anxiety disorder (principal); F98.8 Other specified behavioral and emotional disorders with onset usually occurring in childhood and adolescence; F32.9 Major depressive disorder, single episode, unspecified; R41.3 Other amnesia; F43.8 Other reactions to severe stress | CPT/HCPCS: 90792 ==

== ENCOUNTER → 2021-05-19 08:34 | Outpatient (BNVA) | payer MEDICARE, MEDICAID, SELFPAY | PROVIDERS: PCP Family Medicine; Visit Provider Social Worker | DX: F41.1 Generalized anxiety disorder (principal); F98.8 Other specified behavioral and emotional disorders with onset usually occurring in childhood and adolescence | CPT/HCPCS: 90837; 90834 ==

== ENCOUNTER → 2021-07-03 10:56 | Outpatient (BNVA) | payer MEDICARE, MEDICAID, SELFPAY | PROVIDERS: PCP Family Medicine; Visit Provider Nurse Practitioner | DX: F32.9 Major depressive disorder, single episode, unspecified (principal); F98.8 Other specified behavioral and emotional disorders with onset usually occurring in childhood and adolescence; F41.1 Generalized anxiety disorder; R41.3 Other amnesia | CPT/HCPCS: 99215 ==

== ENCOUNTER → 2021-08-18 17:11 | Outpatient (BNVA) | payer MEDICARE, MEDICAID, SELFPAY | PROVIDERS: PCP Family Medicine; Visit Provider Psychiatry & Neurology Psychiatry | DX: F32.9 Major depressive disorder, single episode, unspecified (principal); F98.8 Other specified behavioral and emotional disorders with onset usually occurring in childhood and adolescence; F41.1 Generalized anxiety disorder; F43.8 Other reactions to severe stress; R41.3 Other amnesia | CPT/HCPCS: 99214 ==

== ENCOUNTER → 2021-09-22 11:41 | Outpatient (BNVA) | payer MEDICARE, MEDICAID, OTHER, SELFPAY | PROVIDERS: PCP Family Medicine; Visit Provider Family Medicine | DX: I10 Essential (primary) hypertension (principal); E78.5 Hyperlipidemia, unspecified; E11.9 Type 2 diabetes mellitus without complications; E03.9 Hypothyroidism, unspecified | CPT/HCPCS: 80053; 80061; 82043; 83036; 84443; 85025 ==

== ENCOUNTER → 2022-05-13 11:40 | Outpatient (BNVA) | payer MEDICARE, MEDICAID, OTHER, SELFPAY | PROVIDERS: PCP Family Medicine; Visit Provider Family Medicine | DX: E66.01 Morbid (severe) obesity due to excess calories (principal); Z68.43 Body mass index [BMI] 50.0-59.9, adult; Z98.84 Bariatric surgery status; E03.9 Hypothyroidism, unspecified; M25.561 Pain in right knee | CPT/HCPCS: 80053; 80061; 82306; 82607; 82728; 82746; 84425; 85025 ==

== ENCOUNTER → 2022-05-17 14:06 | Outpatient (BNVA) | payer MEDICARE, MEDICAID, SELFPAY | PROVIDERS: PCP Family Medicine; Visit Provider Family Medicine | DX: E03.9 Hypothyroidism, unspecified (principal); E11.9 Type 2 diabetes mellitus without complications; I10 Essential (primary) hypertension; E78.5 Hyperlipidemia, unspecified; F32.9 Major depressive disorder, single episode, unspecified; Z12.31 Encounter for screening mammogram for malignant neoplasm of breast | CPT/HCPCS: 83036; 84439; 84443 ==

== ENCOUNTER 2022-05-31 11:43 | Outpatient (CLI) | payer MEDICARE, MEDICAID, SELFPAY ==
--- NOTE | 2022-05-31 11:58 | MM_ITS ---
WS: [id number] VIEWS: MLO and CC views both breasts. 3D digital tomosynthesis is also included in this exam. Comparison made with prior exam of 04/18/2015, 06/10/2016, 01/23/2018, 05/24/2019. Findings: There was no sign of mass, architectural distortion or suspicious calcification in either breast. Sc attered fibroglandular densities MM/[place] [id number] Impression: BI-RADS: 2-Benign FOLLOW-UP: 1 Year Follow-up This mammogram was also analyzed by the Computer Aided Detection System R2 Imag e Criminal Judge.
== END 2022-05-31 11:44 | disposition home or self-care (01) ==
LOC: RAD 11:46
PROVIDERS: PCP Family Medicine; Visit Provider Family Medicine
DX: Z12.31 Encounter for screening mammogram for malignant neoplasm of breast (principal)
CPT/HCPCS: 77063; 77067; 83036; 84439; 84443

== ENCOUNTER 2022-06-30 10:26 | Emergency (ER) | payer MEDICARE, MEDICAID, SELFPAY ==
[2022-06-30 10:43] VITALS: BP 144/80; PULSE 79; TEMP 36.7; O2SAT 94; BMI 41.1
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
[2022-06-30] MEDS: HYDROcodone-acetaminophen 10-325 mg Tablet 1 TAB PO (11:36)
[2022-06-30 13:05] VITALS: RESP 18
[2022-06-30] MEDS: HYDROmorphone 1 mg/mL INJ 1 mL IVP (13:05)
[2022-06-30] MEDS: ketorolac 30 mg/mL INJ 15 MG IM (14:27)
[2022-06-30 14:30] VITALS: RESP 18; O2SAT 98
--- NOTE | 2022-06-30 15:02 | DCPLANNER ---
Addendum entered by Nunu Aguilar 07/07/22 11:35: Patient had a follow up appointment scheduled with ortho - patient did attend appointment. Addendum entered by Nunu Aguilar 07/01/22 08:30: Patient has a follow up appointment scheduled for Wednesday, July 06, 2022 at 10:00 with Aki Arce at ortho. Original Note: manager order had message to schedule a follow up appointment for patient with ortho. manager order sent patients information to the front office staff at ortho. Patients information will be printed and reviewed. Clinic will call patient with appointment information.
== END 2022-06-30 15:16 | disposition home or self-care (01) ==
PROVIDERS: Emergency Provider Emergency Medicine; PCP Family Medicine
DX: S32.010A Wedge compression fracture of first lumbar vertebra, initial encounter for closed fracture (principal); S40.012A Contusion of left shoulder, initial encounter; Z79.84 Long term (current) use of oral hypoglycemic drugs; E11.9 Type 2 diabetes mellitus without complications; I10 Essential (primary) hypertension; V89.2XXA Person injured in unspecified motor-vehicle accident, traffic, initial encounter
CPT/HCPCS: 72128; 72131; 73000; 96372; 96374; 97530; 97760; 99285; J1170; J1885; L0456

== ENCOUNTER → 2022-07-06 10:10 | Outpatient (BNVA) | payer MEDICARE, MEDICAID, SELFPAY | PROVIDERS: PCP Family Medicine; Referring Provider Emergency Medicine; Visit Provider Physician Assistant | DX: S32.010A Wedge compression fracture of first lumbar vertebra, initial encounter for closed fracture (principal); V49.40XA Driver injured in collision with unspecified motor vehicles in traffic accident, initial encounter; M43.16 Spondylolisthesis, lumbar region | CPT/HCPCS: 99203 ==

== ENCOUNTER → 2022-07-20 11:00 | Outpatient (BNVA) | payer MEDICARE, MEDICAID, SELFPAY | PROVIDERS: PCP Family Medicine; Visit Provider Physician Assistant | DX: S32.010D Wedge compression fracture of first lumbar vertebra, subsequent encounter for fracture with routine healing (principal); V49.40XD Driver injured in collision with unspecified motor vehicles in traffic accident, subsequent encounter; M51.36 Other intervertebral disc degeneration, lumbar region | CPT/HCPCS: 72100; 99213 ==

== ENCOUNTER → 2022-08-16 11:43 | Outpatient (BNVA) | payer MEDICARE, MEDICAID, SELFPAY | PROVIDERS: PCP Family Medicine; Visit Provider Family Medicine | DX: E11.9 Type 2 diabetes mellitus without complications (principal); E78.5 Hyperlipidemia, unspecified; G25.81 Restless legs syndrome; I10 Essential (primary) hypertension | CPT/HCPCS: 80053; 83036 ==

== ENCOUNTER → 2022-08-17 11:13 | Outpatient (BNVA) | payer MEDICARE, MEDICAID, SELFPAY | PROVIDERS: PCP Family Medicine; Visit Provider Physician Assistant | DX: S32.010A Wedge compression fracture of first lumbar vertebra, initial encounter for closed fracture (principal); V49.40XA Driver injured in collision with unspecified motor vehicles in traffic accident, initial encounter | CPT/HCPCS: 72100; 99213 ==

== ENCOUNTER 2022-09-02 07:22 | Outpatient (CLI) | payer MEDICARE, MEDICAID, SELFPAY ==
--- NOTE | 2022-09-02 07:15 | MR_ITS ---
WS: [id number] MRI LUMBAR SPINE NONCONTRAST HISTORY: lower back pain- compression fracture COMPARISON: CT 06/30/2022 and prior MRI 07/21/2020. TECHNIQUE: Sagittal and axial multisequence imaging is submitted. Mild degenerative disc and facet disease in the cervical and thoracic spines. Known recent acute L1 c ompression fracture. Anterior wedging by approximately 20%. There is continued marrow edema in the L1 vertebral body. Very slight anterolisthesis of L4. Disc spaces are mildly narrowed. Most significant at L4-5 and L5-S1. Noted is a spinal cord stimulato r entering the subarachnoid space at the L1 level. Conus terminates normally at L1-2 disc level. L1-L2: Mild facet arthritis. Mild LEFT foraminal stenosis. L2-L3: Moderate bilateral facet and ligamentum flavum hypertrophy. Mild RIGHT foraminal stenosis. L3-L4: Mild annular disc bulging with moderate facet joint arthritis. Very slight encroachment into t he subarticular recesses and foramina. Mild stenosis. L4-L5: Diffuse mild annular disc bulging. Moderate ligamentum flavum and facet arthritis encroaching into the thecal sac. Most significant contact on the LEFT traversing L5 nerve root. Mild central with moderate bilateral subarticular recess and mild foraminal stenosis. L5-S1: Central disc protrusion is small. Mild bilateral facet arthritis. Mild bilateral foraminal jane nosis. No paravertebral abnormalities. MR/MR lumbar spine wo con* [id number] IMPRESSION: 1. Acute intercurrent compression fracture L1 by 20%. Unchanged since the CT o f 06/30/2022. No progression. 2. Mild central with moderate bilateral subarticular recess and mild foraminal stenosis at L4-5. Most significant encroachment and impingement is upon the LE FT traversing L5 nerve root. 3. Mild narrowing of the subarticular recesses and foramina at L3-4. 4. Mild bilateral foraminal stenosis at L5-S1.
== END 2022-09-02 07:23 | disposition home or self-care (01) ==
PROVIDERS: PCP Family Medicine; Visit Provider Physician Assistant
DX: M47.816 Spondylosis without myelopathy or radiculopathy, lumbar region (principal); M48.061 Spinal stenosis, lumbar region without neurogenic claudication; M51.26 Other intervertebral disc displacement, lumbar region; M51.27 Other intervertebral disc displacement, lumbosacral region
CPT/HCPCS: 72148

== ENCOUNTER → 2022-09-14 08:57 | Outpatient (BNVA) | payer MEDICARE, MEDICAID, SELFPAY | PROVIDERS: PCP Family Medicine; Visit Provider Orthopaedic Surgery | DX: Z01.818 Encounter for other preprocedural examination (principal); M54.9 Dorsalgia, unspecified | CPT/HCPCS: 36415; 80053; 81003; 85025; 99214 ==

== ENCOUNTER → 2022-10-07 16:18 | Outpatient (BNVA) | payer MEDICARE, MEDICAID, SELFPAY | PROVIDERS: PCP Family Medicine; Visit Provider Family Medicine | DX: Z01.818 Encounter for other preprocedural examination (principal) | CPT/HCPCS: 81000 ==

== ENCOUNTER 2022-10-11 05:58 | Day surgery (SDC) | payer MEDICARE, MEDICAID, SELFPAY ==
[2022-10-08 12:24] VITALS: BMI 42.9
[2022-10-11] VITALS (9 sets, daily range): BP systolic 109–165; BP diastolic 48–78; PULSE 74–91; RESP 15–20; TEMP 35.9–36.3; O2SAT 91–96
--- NOTE | 2022-10-11 06:17 | W.PM.OPSUD ---
Surgery/Procedure H&P Update DATE OF PROCEDURE: October 11, 2022 DATE H&P PERFORMED: 09/14/22 H&P UPDATE INFORMATION: I have reviewed H&P completed within last 30 days, I have examined patient prior to procedure and No changes to prior documentation PLANNED PROCEDURE: Operation Date: 10/11/22 07:00 Proposed Procedures p L1 Kyphoplasty:37391,S32.010A(Not Applicable) - Andrzej Thrasher, DO
--- NOTE | 2022-10-11 06:21 | SC_ITS ---
WS: [id number] INTRAOPERATIVE TECHNIQUE: 5 Spot fluoroscopic images for intraoperative purposes. FLUOROSCOPY TIME: 36.2 seconds CLINICAL INFORMATION: Kyphoplasty L1 COMPARISON: None. FINDINGS: Intraoperative fluoroscopy used for kyphoplasty. Post kyphoplasty changes L2 vertebral body. Epidural stimulator partially visualized. SC/C-arm FL for Kyphoplasty IMPRESSION: Images obtained for intraoperative purposes.
--- NOTE | 2022-10-11 06:47 | ANES.PREANE2 ---
Pre-Anesthetic Assessment Height/Weight: Height 1.63 m Weight 113.398 kg O2 Del Method Room Air 10/11/22 06:11 Preop Diagnosis: L1 compression fracture Operation Date: 10/11/22 07:00 Proposed Procedures p L1 Kyphoplasty:62532,S32.010A(Not Applicable) - Andrzej Thrasher DO Familial anesthetic complications: None Was Beta Mook taken within 24 hours: N/A Was Clonidine taken within 24 hours: N/A Last intake: Intake Last Liquid Date 10/10/22 Last Liquid Time 20:00 Last Solid Date 10/10/22 Last Solid Time 20:00 Social No alcohol and No tobacco Exam alert, oriented x 3, clear to auscultation bilaterally and regular rate & rhythm Airway Mallampati: Class II Dentition: chipped CV/HEM Hypertension GI Gastroesophageal Reflux Disease hx gastric bypass Metabolic Diabetes Mellitus (diet-controlled), Hyperlipidemia, Morbid Obesity and Thyroid Disease Neuropsych hx craniotomy d/ neural abscess Anesthetic Plan ASA status: 3 Anesthesia: General Risk of > 500 ml blood loss (7ml/kg in children): No Medications/Allergies Home Medications Medication Instructions Recorded Confirmed Last Taken Type gabapentin 400 mg capsule 400 - 800 mg PO TID 03/09/19 10/08/22 10/08/22 History triamcinolone acetonide 0.1 % 1 applic topical BID 30 days #80 02/09/21 10/08/22 10/08/22 Rx topical cream grams oxycodone-acetaminophen 7.5 mg-325 1 tab PO Q6H 08/18/21 10/08/22 10/08/22 History mg tablet levothyroxine 75 mcg tablet 75 mcg PO DAILY #90 tabs 05/19/22 10/08/22 10/08/22 Rx lamotrigine 200 mg tablet See Rx Instructions .Route 06/02/22 10/08/22 10/08/22 Rx .COMPLEX #90 tabs atomoxetine 40 mg capsule 40 mg PO BID 30 days #60 caps 08/12/22 10/08/22 10/08/22 Rx (Strattera) brexpiprazole 1 mg tablet (Rexulti) 1 mg PO DAILY #30 tabs 08/12/22 10/08/22 10/08/22 Rx clonazepam 0.5 mg tablet 0.5 mg PO BID #60 tabs 06/10/2710/08/22 10/08/22 Rx donepezil 10 mg tablet 10 mg PO .qhs 30 days #30 tabs 08/12/22 10/08/22 10/08/22 Rx memantine 10 mg tablet See Rx Instructions .Route 08/12/22 10/08/22 10/08/22 Rx .COMPLEX #60 tabs paroxetine HCl 40 mg tablet (Paxil) 40 mg PO DAILY 30 days #30 tabs 08/12/22 10/08/22 10/08/22 Rx trazodone 100 mg tablet 200 mg PO .qhs 30 days #60 tabs 08/12/22 10/08/22 10/08/22 Rx amlodipine 5 mg tablet See Rx Instructions .Route 08/16/22 10/08/22 10/08/22 Rx .COMPLEX #90 tabs pravastatin 40 mg tablet See Rx Instructions .Route 08/16/22 10/08/22 10/08/22 Rx .COMPLEX #90 tabs ropinirole 1 mg tablet See Rx Instructions .Route 08/16/22 10/08/22 10/08/22 Rx .COMPLEX #270 tabs losartan 100 mg tablet See Rx Instructions .Route 09/28/22 10/08/22 10/08/22 Rx .COMPLEX #90 tabs Allergies Allergy/AdvReac Type Severity Reaction Status Date / Time No Known Allergies Allergy Verified 10/08/22 12:18 [facility] Anesthesia Medical History Carpal tunnel syndrome of left wrist Chronic GERD Controlled diabetes mellitus DDD (degenerative disc disease), cervical Depression Essential (primary) hypertension DENILSON (generalized anxiety disorder) Hypercapnic respiratory failure Hypothyroidism Leukocytosis MDD (major depressive disorder) Other reactions to severe stress Psychiatric care Restless leg syndrome Surgical History H/O section H/O craniotomy H/O total knee replacement RIGHT History of ankle surgery History of cholecystectomy History of colonoscopy (~2017) History of gastric bypass Family History Father Stroke Mother Cancer Other Depression Social History Smoking and tobacco status: never smoked Alcohol intake: never Substance/Drug Use: never Data Anesthesia Cardiac Studies: No Data to Display
[2022-10-11] MEDS: sodium chloride 0.9% 1,000 ML 30 ML IV (06:50)
[2022-10-11] MEDS: ceFAZolin 2,000 MG in sodium chloride 0.9% (plus) 50 ML 100 MG IV (07:04)
[2022-10-11] MEDS: lidocaine-epi 1% 20 mL INJ INJECTION (07:36)
[2022-10-11] MEDS: iohexol 300 mg/mL 50 mL Btl 30 ML XX (07:38)
--- NOTE | 2022-10-11 08:12 | PM.OP ---
Operative Report Date of procedure: October 11, 2022 Pre-op diagnosis: Preop Diagnosis L1 wedge osteoporotic traumatic compression fracture Post-op diagnosis: same Surgeon: Andrzej Thrasher Estimated blood loss (mL): 5 Procedure: L1 kyphoplasty Patient is brought to the operative suite after undergoing anesthesia was placed in prone position. All his impingement well-padded. Patient was prepped draped normal sterile fashion. Skin incision was made over the left lateral pedicle. The awl was inserted at the lateral edge of the left pedicle. Was placed through the pedicle on AP and lateral fluoroscopy. Once it was into the vertebral body. A drill was then used to drill was brought to the anterior edge of the vertebral body. Then the balloon was brought in and inflated. The balloon was then deflated and removed. The vertebral body was then filled with cement this was done under AP and lateral fluoroscopy. The tubes were then removed AP lateral fluoroscopy ensured that the cement was in good position. Wounds irrigated and closed with 1 nylon stitch. Sterile dressings were applied patient was transferred to the PACU in stable condition.
[2022-10-11] MEDS: ondansetron 2 mg/ML SDV 2 mL 4 MG IVP (08:23)
[2022-10-11] MEDS: scopolamine 1.5 Patch 1 PATCH TRANSDERMA (08:24)
[2022-10-11] MEDS: oxyCODONE 5 mg IR Tab/Cap 10 MG PO (08:53)
--- NOTE | 2022-10-11 09:00 | ANE.PACU2 ---
Inpatient post-anesthesia follow up: Airway intact: Yes Vital signs: Temperature 96.7 F Pulse Rate 74 Respiratory Rate 16 Blood Pressure 113/57 Pulse Oximetry 96 Oxygen Delivery Me thod Room Air Oxygen Flow Rate 6 Fraction of Inspir ed Oxygen Hydration adequate: Yes Nausea and vomiting: Yes Pain level: 1 Mental status: Baseline
== END 2022-10-11 09:45 | disposition home or self-care (01) ==
PROVIDERS: PCP Family Medicine; Visit Provider Orthopaedic Surgery
PROC: (CPT 22514; principal; 2022-10-11 07:00)
DX: S32.010A Wedge compression fracture of first lumbar vertebra, initial encounter for closed fracture (principal); V89.2XXA Person injured in unspecified motor-vehicle accident, traffic, initial encounter; I10 Essential (primary) hypertension; E11.9 Type 2 diabetes mellitus without complications; E78.5 Hyperlipidemia, unspecified; E66.01 Morbid (severe) obesity due to excess calories; Z68.41 Body mass index [BMI] 40.0-44.9, adult; Z79.899 Other long term (current) drug therapy
CPT/HCPCS: 22514; 76000; J0690; J1100; J1200; J2250; J2371; J2405; J2704; J2710; J3010; J3490; J7030; Q9967

== ENCOUNTER → 2022-11-30 12:01 | Outpatient (BNVA) | payer MEDICARE, MEDICAID, SELFPAY | PROVIDERS: PCP Family Medicine; Visit Provider Family Medicine | DX: E11.9 Type 2 diabetes mellitus without complications (principal); I10 Essential (primary) hypertension | CPT/HCPCS: 80053; 83036 ==

== ENCOUNTER → 2022-12-21 15:31 | Outpatient (BNVA) | payer MEDICARE, MEDICAID, SELFPAY | PROVIDERS: PCP Family Medicine; Visit Provider Nurse Practitioner Family | DX: J02.9 Acute pharyngitis, unspecified (principal) | CPT/HCPCS: 87880 ==

== ENCOUNTER → 2023-05-24 11:52 | Outpatient (BNVA) | payer MEDICARE, MEDICAID, SELFPAY | PROVIDERS: PCP Family Medicine; Visit Provider Family Medicine | DX: E11.9 Type 2 diabetes mellitus without complications (principal); Z13.6 Encounter for screening for cardiovascular disorders; E03.9 Hypothyroidism, unspecified; D50.9 Iron deficiency anemia, unspecified; G25.81 Restless legs syndrome | CPT/HCPCS: 80053; 80061; 82043; 82728; 83036; 83550; 84443; 85025 ==

== ENCOUNTER → 2023-08-02 15:25 | Outpatient (BNVA) | payer MEDICARE, MEDICAID, OTHER, SELFPAY | PROVIDERS: PCP Family Medicine; Visit Provider Nurse Practitioner Family | DX: L71.8 Other rosacea (principal); L70.0 Acne vulgaris; L91.8 Other hypertrophic disorders of the skin; D22.5 Melanocytic nevi of trunk; L81.4 Other melanin hyperpigmentation; L82.1 Other seborrheic keratosis | CPT/HCPCS: 17110; 99204 ==

== ENCOUNTER → 2023-11-21 11:30 | Outpatient (BNVA) | payer MEDICARE, SELFPAY | PROVIDERS: PCP Family Medicine; Visit Provider Nurse Practitioner Family | DX: L82.0 Inflamed seborrheic keratosis (principal); L71.8 Other rosacea; L71.0 Perioral dermatitis; L70.0 Acne vulgaris | CPT/HCPCS: 17110; 99214 ==

== ENCOUNTER → 2024-04-05 11:39 | Outpatient (BNVA) | payer MEDICARE, SELFPAY | PROVIDERS: PCP Family Medicine; Visit Provider Podiatrist Foot & Ankle Surgery | DX: M79.671 Pain in right foot (principal); L84 Corns and callosities | CPT/HCPCS: 73630; 99203 ==

== ENCOUNTER → 2024-04-30 11:32 | Outpatient (BNVA) | payer MEDICARE, SELFPAY | PROVIDERS: PCP Family Medicine; Visit Provider Podiatrist Foot & Ankle Surgery | DX: L84 Corns and callosities (principal); T69.021A Immersion foot, right foot, initial encounter; X58.XXXA Exposure to other specified factors, initial encounter | CPT/HCPCS: 99213 ==

== ENCOUNTER → 2024-06-20 14:18 | Outpatient (BNVA) | payer MEDICARE, SELFPAY | PROVIDERS: PCP Family Medicine; Visit Provider Podiatrist Foot & Ankle Surgery | DX: L84 Corns and callosities (principal) | CPT/HCPCS: 99214 ==

== ENCOUNTER 2024-07-16 08:53 | Day surgery (SDC) | payer MEDICARE, SELFPAY ==
[2024-07-16] VITALS (8 sets, daily range): BP systolic 100–164; BP diastolic 62–91; PULSE 61–72; RESP 18–22; TEMP 36.2–36.6; O2SAT 92–97; BMI 37.8
[2024-07-16 09:21] LABS: Glucose Point of Care 104 mg/dL (70-110)
[2024-07-16] MEDS: CELEcoxib 200 mg Capsule 400 MG PO (09:46)
[2024-07-16] MEDS: gabapentin 300 mg Capsule PO (09:46)
--- NOTE | 2024-07-16 09:47 | ANES.PREANE2 ---
Pre-Anesthetic Assessment Height/Weight: Height 1.63 m Weight 99.79 kg Temp Pulse Resp BP Pulse Ox O2 Del Method 97.9 F 65 18 164/91 97 Room Air 07/16/24 09:30 07/16/24 09:30 07/16/24 09:30 07/16/24 09:30 07/16/24 09:30 07/16/24 09:30 Preop Diagnosis: Right foot hammertoe Operation Date: 07/16/24 10:25 Proposed Procedures p Right foot fifth digit derotational arthroplasty(Right) - Parker Ortiz DPM Last intake: Intake Last Liquid Date 07/15/24 Last Liquid Time 21:00 Last Solid Date 07/15/24 Last Solid Time 21:00 Social No alcohol and No tobacco Airway Submandibular: within normal limits Cervical ROM: within normal limits Mallampati: Class III CV/HEM Hypertension GI Gastroesophageal Reflux Disease Metabolic Diabetes Mellitus and Thyroid Disease (hypothyroid ) Neuropsych Anxiety and Depression Anesthetic Plan ASA status: 3 Anesthesia: General (with popliteal block) Medications/Allergies Home Medications ?Medication ?Instructions ?Recorded ?Confirmed ?Last Taken ?Type gabapentin 400 mg capsule 400 - 800 mg PO TID 03/09/19 07/12/24 07/15/24 History triamcinolone acetonide 0.1 % 1 applic topical BID 30 days #80 02/09/21 07/12/24 07/15/24 Rx topical cream grams nystatin 100,000 unit/gram topical 1 applic topical QID PRN rash #60 05/30/23 07/12/24 07/15/24 Rx powder grams cyclobenzaprine 10 mg tablet 10 mg PO TID 12/09/23 07/12/24 07/16/24 08:30 History hydrocodone 5 mg-acetaminophen 325 1 tab PO BID PRN Pain (Scale Score 12/09/23 07/12/24 07/15/24 History mg tablet 7-10) semaglutide 0.25 mg or 0.5 mg (2 0.5 mg (0.736 mL) SUBCUT .qweekly 03/12/24 07/12/24 07/02/24 Rx mg/3 mL) subcutaneous pen injector 3 months #3 mL (Ozempic) clonazepam 0.5 mg tablet 0.5 mg PO TID #90 tabs 05/07/24 07/12/2407/15/25 Rx donepezil 10 mg tablet 10 mg PO .qhs 30 days #90 tabs 05/07/24 07/12/24 07/15/24 Rx morphine 60 mg tablet,extended 60 mg PO Q12H 05/07/24 07/12/24 07/15/24 History release (MS Contin) paroxetine HCl 40 mg tablet (Paxil) 40 mg PO DAILY 30 days #90 tabs 05/07/24 07/12/24 07/15/24 Rx ropinirole 1 mg tablet 1 mg PO TID #180 tabs 05/07/24 07/12/24 07/15/24 Rx aripiprazole 5 mg tablet (Abilify) 5 mg PO DAILY #30 tabs 05/28/24 07/12/24 07/15/24 Rx pravastatin 40 mg tablet 40 mg PO DAILY #90 tabs 07/04/24 07/12/24 07/15/24 Rx amlodipine 5 mg tablet 5 mg PO DAILY 07/12/24 07/12/24 07/16/24 08:30 History atomoxetine 40 mg capsule 40 mg PO DAILY 07/12/24 07/12/24 07/15/24 History lamotrigine 200 mg tablet 200 mg PO DAILY PRN Diarrhea 07/12/24 07/12/24 07/15/24 History levothyroxine 75 mcg tablet 75 mcg PO DAILY 07/12/24 07/12/24 07/15/24 History losartan 100 mg tablet 100 mg PO DAILY 07/12/24 07/12/24 07/15/24 History memantine 10 mg tablet 10 mg PO BID 07/12/24 07/12/24 07/15/24 History trazodone 100 mg tablet 200 mg PO DAILY 07/12/24 07/12/24 07/15/24 History Allergies Allergy/AdvReac Type Severity Reaction Status Date / Time No Known Allergies Allergy Verified 07/12/24 13:10 [facility] Anesthesia Medical History Rash Other reactions to severe stress MDD (major depressive disorder) Restless leg syndrome Psychiatric care Leukocytosis Hypercapnic respiratory failure Hypothyroidism DENILSON (generalized anxiety disorder) DDD (degenerative disc disease), cervical Depression Chronic GERD Controlled diabetes mellitus Essential (primary) hypertension Carpal tunnel syndrome of left wrist Surgical History History of gastric bypass History of colonoscopy (~2018) H/O craniotomy H/O total knee replacement RIGHT H/O section History of cholecystectomy History of ankle surgery Family History Father Stroke Mother Cancer Other Depression Denies family history of Colon cancer Ovarian cancer Prostate cancer Thyroid cancer Diabetes Heart disease Hypercholesteremia Breast cancer Hypertension Uterine cancer Social History Smoking and tobacco/nicotine status: never used tobacco/nicotine Alcohol intake: never Substance/Drug Use: never
--- NOTE | 2024-07-16 09:48 | W.PM.OPSUD ---
Surgery/Procedure H&P Update DATE OF PROCEDURE: July 16, 2024 DATE H&P PERFORMED: 06/20/24 H&P UPDATE INFORMATION: I have reviewed H&P completed within last 30 days, I have examined patient prior to procedure, No changes to prior documentation, H&P is in [facility] EMR on date indicated and Risks and benefits of the procedure reviewed PREOP DIAGNOSIS: Right foot hammertoe PLANNED PROCEDURE: Operation Date: 07/16/24 10:25 Proposed Procedures p Right foot fifth digit derotational arthroplasty(Right) - Parker Ortiz DPM
[2024-07-16] MEDS: sodium chloride 0.9% 1,000 ML 30 ML IV (09:55)
[2024-07-16] MEDS: ceFAZolin 2,000 mg SDV 2000 MG IVP (10:11)
[2024-07-16] MEDS: BUPivacaine 0.5% INJ 30 mL XX (10:31)
--- NOTE | 2024-07-16 10:42 | W.PM.BPON ---
Date of procedure: 07/16/2024 Surgeon name: Anton SantillanPTrinidad Manager Maintenance(s) name(s): Sidney Procedure(s) performed: Right foot fifth digit derotational arthroplasty Description of findings: Right foot fifth digit hammertoe Estimated blood loss: 2 cc Tourniquet time: 10 minutes Specimen(s) removed: None Post-operative diagnosis: Hammertoe right foot fifth digit
[2024-07-16] MEDS: TRAMadol 50 mg Tablet PO (11:37)
--- NOTE | 2024-07-16 12:36 | ANE.PACU2 ---
Inpatient post-anesthesia follow up: Airway intact: Yes Vital signs: Temperature 97.8 F Pulse Rate 68 Respiratory Rate 20 Blood Pressure 118/78 Pulse Oximetry 97 Oxygen Delivery Me thod Room Air Oxygen Flow Rate 8 Fraction of Inspir ed Oxygen Hydration adequate: Yes Nausea and vomiting: No Pain level: managed actively
--- NOTE | 2024-07-16 19:00 | P.OP_ITS ---
Operative Report Date of procedure: July 16, 2024 Surgeon: Parker Ortiz DPM Procedure: Date of procedure: 07/16/2024 Pre-op diagnosis: Right foot fifth digit hammertoe Post-op diagnosis: Same Post-op findings: Hammertoe right foot fifth digit Procedure done: Right foot fifth digit derotational arthroplasty [id number] Implants: None Specimens removed: None Surgeon: Dr. Parker Ortiz DPM Garbage Collector Driver: Sidney Estimated blood loss: 2 cc Tourniquet time: 10 minutes Complications: None Patient is a 58-year-old female that has a history of right foot fifth digit hammertoe with heloma durum. The patient has had the aforementioned chief c omplaint for some time. Conservative treatment measures have been attempted and the patient has opted for surgical intervention at this time. A lengthy discussion regarding the procedure, including risks and complications has been had with the patient and is noted in the recent clinic note. Written and verbal consent have been obtained. All patient questions have been answered to the patient?s satisfaction. No written or verbal guarantees have been given or implied. The patient has been NPO since midnight. The history has been reviewed and the history and physical is current. The signed consent was confirmed and placed in the patient chart. Patient imaging has been reviewed and is consistent with the diagnosis. Under mild sedation, the patient was brought into the operating room and placed on the table in the supine position. IV antibiotics were given by the anesthesia team as preoperative surgical prophylaxis. IV sedation was then performed by the anesthesiateam. A local field block was performed using 0.5% Marcaine plain. A pneumatic tourniquet was then placed about the right ankle. The operative extremity was then prepped and draped in the usual fashion. The extremity was then elevated and exsanguinated before the tourniquet was inflated to 250 mmHg. After inflation, the following procedure was then performed. Attention was directed to the right foot fifth digit where a 1.5 cm elliptical incision was made overlying the proximal interphalangeal joint using a #15 blade. Skin was ellipsed and passed from the operative field extensor tendon was transected at the level of the proximal interphalangeal joint with #15 blade to expose the underlying proximal interphalangeal joint. Upon exposure of the joint sagittal bone saw was used to resect the head of the proximal phalanx. This was passed from the operative field. The site was irrigated with copious months of sterile saline. Extensor tendon was repaired using 3-0 Vicryl. Skin edges were reapproximated using 4-0 nylon. Fifth digit was noted to sit in a more appropriate anatomic position. Tourniquet was let down and good hyperemic response was noted to all digits of the right foot. Incision site was dressed with Xeroform, 4 x 4 gauze, Kerlix, Asher. The patient tolerated the procedure and anesthesia well and without complication. The patient was transported from the operating room to the recovery room with vital signs stable and vascular status intact to all digits of the right foot. The patient was given both written and verbal instructions to remain weightbearing as tolerated in postoperative shoe to the operative extremity, to keep dressings/splint clean, dry and intact and to take pain medication as directed. The patient will follow-up in the outpatient setting at their scheduled appointment. The patient was discharged with my personal number and was instructed to call if any questions or issues should arise. They were discharged home once anesthesia criteria was met.
== END 2024-07-16 11:52 | disposition home or self-care (01) ==
PROVIDERS: PCP Family Medicine; Visit Provider Podiatrist Foot & Ankle Surgery
PROC: (CPT 28285; principal; 2024-07-16 10:15)
DX: M20.41 Other hammer toe(s) (acquired), right foot (principal); I10 Essential (primary) hypertension; K21.9 Gastro-esophageal reflux disease without esophagitis; E11.9 Type 2 diabetes mellitus without complications; L84 Corns and callosities; E03.9 Hypothyroidism, unspecified; Z79.899 Other long term (current) drug therapy; Z79.85 Long-term (current) use of injectable non-insulin antidiabetic drugs; Z79.890 Hormone replacement therapy
CPT/HCPCS: 28285; 36416; 82962; J0690; J2250; J2704; J3010; J3490; J7030; J9999

== ENCOUNTER → 2024-07-31 13:20 | Outpatient (BNVA) | payer MEDICARE, SELFPAY | PROVIDERS: PCP Family Medicine; Visit Provider Podiatrist Foot & Ankle Surgery | DX: M79.671 Pain in right foot (principal); L84 Corns and callosities | CPT/HCPCS: 73630; 99024 ==

== ENCOUNTER → 2024-08-13 14:51 | Outpatient (BNVA) | payer MEDICARE, MEDICAID, OTHER, SELFPAY | PROVIDERS: PCP Family Medicine; Visit Provider Podiatrist Foot & Ankle Surgery | DX: L84 Corns and callosities (principal); M79.671 Pain in right foot | CPT/HCPCS: 99024 ==

== ENCOUNTER 2024-08-20 08:54 | Outpatient (CLI) | payer MEDICARE, MEDICAID, SELFPAY ==
--- NOTE | 2024-08-20 09:06 | IR_ITS ---
WS: [id number] CERVICAL AND LUMBAR MYELOGRAMs HISTORY: CERVICAL RADICULOPATHY COMPARISON: Prior MRI lumbar spine 09/02/2022 FLUOROSCOPY TIME: 7min [id number] # of spot films: 5 Procedure, risks and complications were explained to the patient. Risks including bleeding, infection, headaches, allergic reaction and seizures. Consent has been obtained. Study is compromised by patient's body habitus and spinal stenosis. With the patient in prone position the skin over the lumbar region is cleansed with ChloraPrep and anesthetized with lidocaine. 22-gauge spinal needle is inserted into the thecal sac at 2 separate levels. During the first injection there is contrast noted within the disc space. The needle was retracted and no contrast noted filling the subarachnoid space. Elected to try different location, L4-5 location is identified. No CSF is identified within the needle although it is felt to be within the subarachnoid space. Test injection showed the contrast again is within the disc space. I did retract the needle slightly with a small amount of CSF noted. After injection there was no filling of the subarachnoid space. Cervical myelogram not performed as there is inadequate injection of the subarachnoid space. CT lumbar spine to follow. Higher level of injection could not be of performed due to patient's spinal stimulator wires.
--- NOTE | 2024-08-20 09:06 | CT_ITS ---
WS: [id number] CT MYELOGRAM LUMBAR SPINE HISTORY: Lumbar radiculopathy. TECHNIQUE: Contiguous 2.0 mm axial imaging performed from T12 through the mid sacral level. Bone and soft tissue windows reviewed. Sagittal and coronal reformats are submitted and reviewed. DLP: 803.[address] scans at [facility] use at least one of these dose optimization techniques: automated exposure control; mA and/or kV adjustment per patient size (includes targeted exams where dose is matched to clinical indication); or iterative reconstruction. COMPARISON: 06/30/2022 Myelogram was difficult to perform due to combination of factors including patient's body habitus, scoliosis, stenosis, movement and spinal cord stimulator wires. Spinal cord stimulator wires limited levels in which access could be attempted into the subarachnoid space. There is no significant amount of contrast noted in the subarachnoid space. 2 separate levels of myelogram were attempted including the L3-4 and L4-5 levels. There is contrast noted during injection into the Injected contrast is noted within the disc spaces and a small amount in the epidural space at L3-4 and L4-5. This is due to lack of CSF being evident during the attempted access into the subarachnoid space. After noting contrast within the disc space the needle was retracted and still no CSF was noted. Several attempts at each level to opacify the thecal sac were unsuccessful. This is due to high levels of stenosis. Additional levels cannot be attempted due to the spinal cord stimulator wires. Mild increase in lumbar lordosis. Scoliosis. Prior vertebroplasty at L1 secondary to a fracture. Spinal cord stimulators are well noted beginning posterior to the L3 vertebral body. Slight anterolisthesis of L3 and L4. Bilateral advanced facet joint arthropathy. Osteophytes and narrowing. L1-L2: Bilateral facet joint arthritis and disc bulging. Mild bilateral foraminal stenosis. L2-L3: Marked annular disc bulging asymmetric to the RIGHT. Moderate facet arthritis. Mild central, bilateral subarticular recess and RIGHT foraminal stenosis. L3-L4: Diffuse annular disc bulging with marked facet and ligamentum flavum hypertrophy. Moderate central, subarticular recess and foraminal stenosis. Ligamentum flavum hypertrophy. L4-L5: Marked annular disc bulging, osteophytic ridging. Severe facet arthritis. Severe central, bilateral subarticular recess and foraminal stenosis due to combination of factors. Suspect there may be a RIGHT foraminal disc protrusion. L5-S1: Diffuse osteophytic ridging, disc bulging and facet arthritis. Osteophyte contacts the ventral thecal sac. Mild central, subarticular recess with moderate to severe bilateral foraminal stenosis due to osteophyte disease. Scattered calcification within the aorta. Adrenal glands are normal. Bilateral renal calcifications are nonobstructing. CT/CT lumbar spine w con [id number] IMPRESSION: 1. Unsuccessful attempt at achieving access into the subarachnoid space for ginger mbar myelogram. 2. No contrast opacification of the subarachnoid space is multifactorial and m ost significantly related to central spinal canal stenosis and advanced facet j oint and arthropathy. Several contrast injections at different disc levels were attempted but the subarachnoid space did not opacify. Small amount of contrast noted within the L4-5 and L3-4 disc. After retracting the needle there was sti ll no contrast opacification in the subarachnoid space. 3. L3-4: Moderate central, subarticular recess and foraminal stenosis. 4. L4-5: Severe central, bilateral subarticular recess and foraminal stenosis. Severe facet arthritis. Small RIGHT foraminal disc protrusion may be present. 5. L5-S1: Mild central, subarticular recess with moderate to severe bilateral foraminal stenosis predominantly due to osteophytes. If further evaluation of the spine is necessary MRI is recommended. There is al so some benefit to be gained from noncontrast CT evaluations.
--- NOTE | 2024-08-20 09:09 | IR_ITS ---
WS: [id number] CERVICAL AND LUMBAR MYELOGRAMs HISTORY: CERVICAL RADICULOPATHY COMPARISON: Prior MRI lumbar spine 09/02/2022 FLUOROSCOPY TIME: 7min [id number] # of spot films: 5 Procedure, risks and complications were explained to the patient. Risks including bleeding, infection, headaches, allergic reaction and seizures. Consent has been obtained. Study is compromised by patient's body habitus and spinal stenosis. With the patient in prone position the skin over the lumbar region is cleansed with ChloraPrep and anesthetized with lidocaine. 22-gauge spinal needle is inserted into the thecal sac at 2 separate levels. During the first injection there is contrast noted within the disc space. The needle was retracted and no contrast noted filling the subarachnoid space. Elected to try different location, L4-5 location is identified. No CSF is identified within the needle although it is felt to be within the subarachnoid space. Test injection showed the contrast again is within the disc space. I did retract the needle slightly with a small amount of CSF noted. After injection there was no filling of the subarachnoid space. Cervical myelogram not performed as there is inadequate injection of the subarachnoid space. CT lumbar spine to follow. Higher level of injection could not be of performed due to patient's spinal stimulator wires. IR/IR myelogram sp lumbar [id number] IMPRESSION: 1. Unsuccessful attempt at subarachnoid injection into the lumbar spine due to combination of factors including body habitus and spinal stenosis. Unable to p erform a higher attempt at subarachnoid access due to spinal stimulator wires. MRI of the cervical and lumbar spines would be much more beneficial for this pa tient. 2. CT lumbar spine will be performed as some information can be gathered from the injection.
[2024-08-20] MEDS: iohexol 240 mg/mL 50 mL Btl 35 ML INTRATHECA (14:27)
== END 2024-08-20 08:55 | disposition home or self-care (01) ==
LOC: RAD 08:55
PROVIDERS: PCP Family Medicine; Visit Provider Physician Assistant
DX: M54.12 Radiculopathy, cervical region (principal)
CPT/HCPCS: 62304; 62305; 72132

== ENCOUNTER 2024-10-17 13:17 | Outpatient (CLI) | payer MEDICARE, SELFPAY ==
[2024-10-17 14:06] LABS: Hematocrit 42.7 % (36-47); Hemoglobin 14.20 g/dL (11.27-16.99); Mean Corpuscular HGB Conc 33.3 g/dL (30-55); Mean Corpuscular Hemoglobin 29.0 pg (27-33); Mean Corpuscular Volume 87.1 fl (85-98); Nucleated Red Blood Cells % 0 %; Platelet Count 358 10^3/cmm (157-399); Red Blood Count 4.90 10^6/uL (3.85-5.65); White Blood Count 6.70 10^3/uL (3.29-11.43)
[2024-10-17 14:25] LABS: Alanine Aminotransferase 14 U/L (0-33); Albumin Level 4.4 g/dL (3.5-5.2); Alkaline Phosphatase 114 U/L (35-105); Anion Gap 14.8 (5-19); Aspartate Amino Transferase 15 U/L (0-32); Blood Urea Nitrogen 14 mg/dL (8-23); Calcium 9.8 mg/dL (8.5-10.5); Carbon Dioxide 27 mmol/L (22-29); Chloride 102 mmol/L (98-107); Globulin 2.4 g/dL (1.3-4.6); Glucose 107 mg/dL (65-115); Osmolality Calculated 289 mOsm/kg (285-295); Potassium 4.8 mmol/L (3.5-5.1); Sodium 139 mmol/L (136-145); Total Protein 6.8 g/dL (6.6-8.7)
== END 2024-10-17 13:18 | disposition home or self-care (01) ==
PROVIDERS: PCP Family Medicine; Visit Provider Pain Medicine Interventional Pain Medicine
DX: Z01.818 Encounter for other preprocedural examination (principal)
CPT/HCPCS: 36415; 80053; 85025

== ENCOUNTER → 2024-10-18 11:02 | Outpatient (BNVA) | payer MEDICARE, SELFPAY | PROVIDERS: PCP Family Medicine; Visit Provider Internal Medicine Cardiovascular Disease | DX: Z01.818 Encounter for other preprocedural examination (principal) | CPT/HCPCS: 93005 ==

== ENCOUNTER → 2024-11-28 15:01 | Outpatient (BNVA) | payer MEDICARE, SELFPAY | PROVIDERS: PCP Family Medicine; Visit Provider Family Medicine | DX: E11.9 Type 2 diabetes mellitus without complications (principal); E03.9 Hypothyroidism, unspecified | CPT/HCPCS: 83036; 84439; 84443 ==